=== PATIENT | male | born 1960 | race Caucasian/White ===

== ENCOUNTER 2019-06-08 16:30 | Inpatient (IN) | payer MEDICARE, SELFPAY ==
[2019-06-08 16:30] VITALS: RESP 18; BMI 26.6
--- NOTE | 2019-06-08 16:35 | PC.NURSE ---
Unable to perform an accurate triage d/t pt being uncooperative and screaming about [place] and being a . Pt refusing assessment by Dr Marquez stating you aren't a doctor so get out, I don't need to see you . Pt is throwing things in the room and talking non-sense. Pt refusing to be seen or treated. Security at bedside.
[2019-06-08 16:40] VITALS: RESP 18
[2019-06-08] MEDS: LORazepam 2 mg/mL INJ 1 mL IM ×2 (16:46→21:55)
[2019-06-08] MEDS: haloperidol inj 5 mg/mL INJ 1 mL IM (16:46)
[2019-06-08] MEDS: diphenhydrAMINE 50 mg/mL SDV 1mL IM (16:55)
[2019-06-08 17:14] VITALS: PULSE 133; RESP 18; O2SAT 97
--- NOTE | 2019-06-08 17:25 | PC.NURSE ---
Pt continues to be resistive to care and security remains at bedside to keep pt calm. Pt reusing to change clothes and give urine sample or obtain blood sample.
--- NOTE | 2019-06-08 17:54 | W.ED.PSYCH ---
HPI - Psych General: Chief Complaint: Psychiatric Symptoms Stated Complaint: PSYCH EVAL Time Seen by Provider: 06/08/19 16:30 Source: patient and EMS Mode of arrival: EMS Limitations: altered mental status History of Present Illness: HPI Narrative: 59-year-old male came in with EMS for agitation along with acute psychosis. Patient was found at a gas station wandering and screaming and yelling and making no sense and EMS was called. I have tried to speak to him and he talks about and he is quite delusional. He will not answer any my questions and states he only wants to talk to personnel. No known history is available. He does not look ill. He is agitated at this time. Review of Systems General: Reports: ROS unobtainable due to medical condition PFSH ED PFSH: Social History Smoking and tobacco status: current every day smoker Physical Exam Const: COMMON NORMALS: oriented x3 GENERAL APPEARANCE: combative and disheveled HENMT: COMMON NORMALS: normocephalic and head/scalp atraumatic HEAD & SCALP: normocephalic and atraumatic Eye: COMMON NORMALS: PERRL and EOMs intact bilaterally PUPIL: Yes PERRL Neck/C-Spine: COMMON NORMALS: full ROM and supple Chest: COMMONS NORMALS: inspection of chest normal and palpation of chest normal Resp: COMMON NORMALS: normal respiratory effort, no retractions, no use of accessory muscles and clear to auscultation bilaterally AUSCULTATION: clear to auscultation bilaterally Cardio: COMMON NORMALS: regular rate, regular rhythm and no murmurs RATE: regular rate RHYTHM: regular rhythm GI: COMMON NORMALS: normal to inspection, nondistended, normoactive bowel sounds, soft to palpation, non-tender and no masses PALPATION: Yes soft Extremity: COMMON NORMALS: normal to inspection and full ROM Neuro: COMMON NORMALS: oriented x3, moves all extremities and no focal motor deficits Psych: APPEARANCE: Yes bizarre ATTITUDE: Yes paranoid, Yes belligerent and Yes agitated Skin: COMMON NORMALS: no rashes or lesions noted and no wounds GENERAL SKIN EXAM: no rashes or lesions noted MDM - Psych MDM Narrative: Medical decision making narrative: Ced presents here with acute psychosis and agitation. Patient is well-appearing here currently and is much calmer and agreeable. Patient has no signs of medical cause CT head lab work are all normal. He has no signs of meningitis. Spoke to psychiatrist and will admit at this time. Lab Data: Labs: Lab Results 06/08/19 06/08/19 06/08/19 Range/Units 18:43 18:43 18:51 WBC 8.5 (4.0-10.0) 10^3/ uL RBC 4.84 (4.1-5.3) 10^6/u L Hgb 15.3 (11.7-16.6) g/dL Hct 45.5 (42.0-52.0) % MCV 94.0 (80-94) fL MCH 31.6 (28.0-34.0) pg MCHC 33.6 (30.0-36.0) g/dL RDW 13.2 (12.1-15.1) % Plt Count 181 (130-400) 10^3/c mm MPV 10.4 (7.4-10.4) fL Neut % (Auto) 74.4 % Lymph % (Auto) 18.1 % Kershaw % (Auto) 6.8 % Eos % (Auto) 0.1 % Baso % (Auto) 0.4 % Neut # (Auto) 6.4 (1.8-7.7) 10^3/u L Lymph # (Auto) 1.6 (0.8-4.8) 10^3/u L Kershaw # (Auto) 0.6 (0.2-0.9) 10^3/u L Eos # (Auto) 0.0 (0.0-0.8) 10^3/u L Baso # (Auto) 0.0 (0.0-0.1) 10^3/u L Nucleated RBC % (a uto) 0 % Nucleated RBCs # 0.0 /100WBC Sodium 139 (136-145) mmol/L Potassium 3.4 L (3.5-5.1) mmol/L Chloride 101 (98-107) mmol/L Carbon Dioxide 22 (22-29) mmol/L Anion Gap 19.4 H (5-19) BUN 8 (8-23) mg/dL Creatinine 1.2 (0.7-1.2) mg/dL GFR Calculation 61.8 L (90-130) mL/min Glucose 122 H (65-115) mg/dL Calculated Osmolal ity 285 (285-295) mOsm/k g Calcium 10.1 (8.5-10.5) mg/dL Total Bilirubin 0.8 (0.15-1.2) mg/dL AST 13 (0-40) U/L ALT 8 (0-41) U/L Alkaline Phosphata se 104 (40-130) IU/L Total Protein 7.5 (6.6-8.7) g/dL Albumin 4.4 (3.5-5.2) g/dL Globulin 3.1 (1.3-4.6) g/dL Salicylates < 0.3 L (3-10) mg/dL Urine Opiates Scre en Negative (Negative) ng/mL Acetaminophen < 5.0 L (10-30) ug/mL Ur Barbiturates Sc reen Negative (Negative) ng/mL Ur Phencyclidine S crn Negative (Negative) ng/mL Ur Amphetamines Sc reen Negative (Negative) ng/mL U Benzodiazepines Scrn Negative (Negative) ng/mL Urine Cocaine Scre en Negative (Negative) ng/mL U Marijuana (THC) Screen Negative (Negative) ng/mL Ethyl Alcohol < 10 (0-10) mg/dL Imaging Data^: CT Head: Attestation: I personally reviewed and interpreted this imaging study as follows: Radiologist's impression: [address] [address] [address] Scan Report Signed Patient: Ced Vicente Unit #: [id number] : 1960 Age/Sex: 59 / M ADM Date: 06/08/19 Loc: ER Room/Bed: Attending Dr: Ordering Provider/Ordering MD: Laura Marquez MD Date of Service: 06/08/19 Procedure(s): CT head wo con* [id number] Accession Number(s): [id number] Report Number: [id number] PROCEDURE INFORMATION: Exam: CT Head Without Contrast Exam date and time: 06/08/2019 7:22 PM Age: 59 years old Clinical indication: Altered mental status/memory loss; Additional info: AMS TECHNIQUE: Imaging protocol: Computed tomography of the head without contrast. Total DLP: 845.42 mGy-cm Radiation optimization: All CT scans at this facility use at least one of these dose optimization techniques: automated exposure control; mA and/or kV adjustment per patient size (includes targeted exams where dose is matched to clinical indication); or iterative reconstruction. COMPARISON: No relevant prior studies available. FINDINGS: Brain: Currently no visible evidence of active or acute intracranial pathologic process. No visible acute or subacute infarction, hemorrhagic event, intracranial trauma, mass-effect, or generalized edema. Benign basal ganglia calcifications. Ventricles: Normal. No ventriculomegaly. Bones/joints: Unremarkable. No acute fracture. Sinuses: Visualized sinuses are unremarkable. No fluid levels. Mastoid air cells: Visualized mastoid air cells are well aerated. Soft tissues: Unremarkable. CT/CT head wo con* [id number] IMPRESSION: No visible evidence of active or acute intracranial pathologic process. Discharge Plan Discharge Patient Disposition: Admitted As Inpatient Clinical Impression: Acute psychosis Condition: Stable Coding Level of Care Code ED Truck Packer for Jhonatan Fwd Exam Comprehensive
[2019-06-08 18:46] VITALS: BP 142/98; PULSE 87; RESP 16; TEMP 36.9; O2SAT 96
--- NOTE | 2019-06-08 18:58 | PC.NURSE ---
Ketamine dose of 326.6mg wasted with Juanita Burkett RN d/t no need for medication. Dr Marquez notified and aware. Pt has given urine sample and requested a sandwich and a drink, both have been provided to pt. Pt continues to refuse to remove his clothing but is otherwise cooperative. Pt instructed to remove all objects in his pockets if he will not change into scrubs.
[2019-06-08 19:03] LABS: Basophils % 0.4 %; Eosinophils % 0.1 %; Hematocrit 45.5 % (42.0-52.0); Hemoglobin 15.3 g/dL (11.7-16.6); Lymphocytes # 1.6 10^3/uL (0.8-4.8); Lymphocytes % 18.1 %; Mean Corpuscular HGB Conc 33.6 g/dL (30.0-36.0); Mean Corpuscular Hemoglobin 31.6 pg (28.0-34.0); Mean Platelet Volume 10.4 fL (7.4-10.4); Monocytes # 0.6 10^3/uL (0.2-0.9); Monocytes % 6.8 %; Neutrophils # 6.4 10^3/uL (1.8-7.7); Neutrophils % 74.4 %; Nucleated Red Blood Cells % 0 %; Platelet Count 181 10^3/cmm (130-400); Red Blood Count 4.84 10^6/uL (4.1-5.3); Red Cell Distribution Width 13.2 % (12.1-15.1); White Blood Count 8.5 10^3/uL (4.0-10.0)
--- NOTE | 2019-06-08 19:07 | CTR_ITS ---
PROCEDURE INFORMATION: Exam: CT Head Without Contrast Exam date and time: 06/08/2019 7:22 PM Age: 59 years old Clinical indication: Altered mental status/memory loss; Additional info: AMS TECHNIQUE: Imaging protocol: Computed tomography of the head without contrast. Total DLP: 845.42 mGy-cm Radiation optimization: All CT scans at this facility use at least one of these dose optimization techniques: automated exposure control; mA and/or kV adjustment per patient size (includes targeted exams where dose is matched to clinical indication); or iterative reconstruction. COMPARISON: No relevant prior studies available. FINDINGS: Brain: Currently no visible evidence of active or acute intracranial pathologic process. No visible acute or subacute infarction, hemorrhagic event, intracranial trauma, mass-effect, or generalized edema. Benign basal ganglia calcifications. Ventricles: Normal. No ventriculomegaly. Bones/joints: Unremarkable. No acute fracture. Sinuses: Visualized sinuses are unremarkable. No fluid levels. Mastoid air cells: Visualized mastoid air cells are well aerated. Soft tissues: Unremarkable. CT/CT head wo con* [id number] IMPRESSION: No visible evidence of active or acute intracranial pathologic process. Radiation Dose CTDIVOL = (mGy): DLP = 845.42 (mGy-cm)
[2019-06-08 19:22] LABS: Alanine Aminotransferase 8 U/L (0-41); Albumin Level 4.4 g/dL (3.5-5.2); Alkaline Phosphatase 104 IU/L (40-130); Anion Gap 19.4 (5-19); Aspartate Amino Transferase 13 U/L (0-40); Blood Urea Nitrogen 8 mg/dL (8-23); Calcium 10.1 mg/dL (8.5-10.5); Carbon Dioxide 22 mmol/L (22-29); Chloride 101 mmol/L (98-107); Globulin 3.1 g/dL (1.3-4.6); Glomerular Filtration Rate 61.8 mL/min (90-130); Glucose 122 mg/dL (65-115); Osmolality Calculated 285 mOsm/kg (285-295); Potassium 3.4 mmol/L (3.5-5.1); Sodium 139 mmol/L (136-145); Total Bilirubin 0.8 mg/dL (0.15-1.2); Total Protein 7.5 g/dL (6.6-8.7)
[2019-06-08 19:27] LABS: Acetaminophen < 5.0 ug/mL (10-30); Alcohol Level < 10 mg/dL (0-10); Salicylate < 0.3 mg/dL (3-10)
[2019-06-08 19:49] LABS: Amphetamines Screen Urine Negative (Negative); Barbiturates Screen Urine Negative (Negative); Benzodiazepines Screen Urine Negative (Negative); Cocaine Screen Urine Negative (Negative); Opiate Screen Urine Negative (Negative); PCP Screen Urine Negative (Negative); THC Screen Urine Negative (Negative)
--- NOTE | 2019-06-08 22:55 | PC.NURSE ---
Pt arrived to unit via w/c from ER, wearing paper scrubs, pt refused to take off t-shirt and underwear in the ER.
--- NOTE | 2019-06-08 23:00 | PC.NURSE ---
pt has no scheduled med at this time.
[2019-06-08 23:05] VITALS: BP 129/86; PULSE 83; RESP 19; TEMP 36.8; O2SAT 93
--- NOTE | 2019-06-09 00:54 | PC.NURSE ---
Pt was compliant, with much encouragement and assistance, in changing clothes. Pt was unable to stand without assistance. Cannot answer questions. continues to mumble. quickly went to sleep. continue to monitor.
[2019-06-09 06:00] VITALS: BP 168/99; PULSE 69; RESP 15; TEMP 36.7; O2SAT 98
[2019-06-09 14:00] VITALS: BP 146/85; PULSE 73; RESP 16; TEMP 36.5; O2SAT 96
--- NOTE | 2019-06-09 14:02 | P.HP_ITS ---
Providers/Chief Complaint Admitting Physician: Oskar Fine MD Chief Complaint: PSYCH EVAL HPI NPU History of Present Illness Chief complaint: I don't want to. History of present illness:Ced Vicente is a 59 year old male who was admitted from the mergency room with the following ER phsyciain narrative: 59-year-old male came in with EMS for agitation along with acute psychosis. Patient was found at a gas station wandering and screaming and yelling and making no sense and EMS was called. I have tried to speak to him and he talks about and he is quite delusional. He will not answer any my questions and states he only wants to talk to personnel. No known history is available. He does not look ill. He is agitated at this time. he was given medication in the emergency room to calm his agitation. Today, he is content to lay in bed and sleep. He is unwilling to participate and an individual interview at this time. He is in no apparent distress. However, we have absolutely no information on this patient. He has no prior medical records at this facility. He has no legal records in the public records for the state [facility]. His last name is familiar to people who live in this community but his identity and the first name are unfamiliar. Mental health history:unknown Social history:unknown Legal history:no record of felonies or rests in the [place] public record Past medical history:unknown Laboratory Tests 06/08/19 06/08/19 06/08/19 18:43 18:43 18:51 WBC 8.5 Hgb 15.3 Hct 45.5 Sodium 139 Potassium 3.4 L Chloride 101 Carbon Dioxide 22 Urine Opiates Screen Negative Ur Barbiturates Screen Negative Ur Phencyclidine Scrn Negative Ur Amphetamines Screen Negative U Benzodiazepines Scrn Negative Urine Cocaine Screen Negative U Marijuana (THC) Screen Negative Ethyl Alcohol < 10 Mental Status Exam: patient is laying in bed in no apparent distress with even unlabored breathing. He is aroused by verbal stimuli. However he states verbally that he is unwilling to participate in an interview at this time. Appearance: hygiene is fair; no gross neurological deficits., gait is unremarkable; AIMS=0 Speech: Speech is of normal rate and rhythm and easily understood. Diagnoses:delirium?etiology unknown Assessment:at this time we will wait for the patient to process the sedating medication he was given in the emergency room last night and continue to assess as available. Treatment plan: Due to the psychiatric conditions and treatment listed in the Assessment and Plan - the patient requires continued hospitalization. Will provide a safe and therapeutic environment for patient.. Will continue inpatient treatment to allow for medication adjustment and monitoring. Will continue q15 min safety checks. Will continue current medications and monitor for medication side effects. Monitor patient's mood, sleep, appetite, and behavior closely. Encourage patient to participate in individual and group therapeutic sessions on the mitchell. Estimated length of stay 5 days The expected benefits and potential side effects of patient's psychiatric medications were discussed with the patient. The patient understands and consents to treatment.CRITERIA FOR DISCHARGE: stable on medications and no longer an imminent risk to self or others. Meds NPU Home Medications Medication Instructions Recorded Confirmed Type No Known Home Medications 06/08/19 06/08/19 History Allergies Allergy/AdvReac Type Severity Reaction Status Date / Time Penicillins Allergy ADR-Itching Verified 06/09/19 10:59 PFSH NPU PFSH: Social History Smoking and tobacco status: current every day smoker Vitals/I&O/Wt Last Vital Signs Temp 98.0 F 06/09/19 06:00 Pulse 69 06/09/19 06:00 Resp 15 06/09/19 06:00 BP 168/99 06/09/19 06:00 Pulse Ox 98 06/09/19 06:00 Weight last 48 hrs Weight 81.647 kg Data NPU : 06/08/19 18:43 06/08/19 18:43 Involuntary Hold Information 96 Hour Hold: 96 Hour Involuntary Admission: Yes 96 Hour Hold Ending Date: 06/14/19 96 Hour Hold Ending Time: 16:30 Attestations NPU Medical Necessity Statement*: patient will remain in the hospital another 4-5 nights under the force of his 96 hour involuntary commitment. Coding Level of Care Code Acute Concrete Tile Machine Operator for Jhonatan Bajwa
[2019-06-09] MEDS: OLANZapine ODT 5 MG TABLET PO (15:10)
--- NOTE | 2019-06-09 15:10 | PC.NURSE ---
PRN ZYPREXA ZYDIS 5 MG GIVEN PO PER PT C/O SEVERE AGITATION. PT IRRITABLE WITH STAFF, DEMANDING HIS WALLET & PICTURES & WATCH. STAFF ATTEMPTS TO EDUCATE PT ON UNIT RULES, ASSURED PT THAT HIS VALUABLES WERE SAFELY LOCKED UP IN THE SAFE & WOULD BE RETURNED TO HIM UPON DISCHARGE. PT CONT TO BE ARGUMENTATIVE WITH STAFF. TOOK MED WITH MUCH ENCOURAGEMENT. WILL CONT TO MONITOR.
--- NOTE | 2019-06-09 21:16 | PC.NURSE ---
Pt refused HS meds at this time.
[2019-06-09 21:27] VITALS: RESP 21
--- NOTE | 2019-06-09 21:30 | PC.NURSE ---
Attempt made to give pt his scheduled HS meds, pt refused meds. stated i don't take any medicine. promotion writer attempted to educate pt on the medications to be given at this time, pt grabbed the meds and held them in his hand. when pt was told he could not do that, that if he didn't want to take his medications, it was ok, but pt would have give the meds back so they can be put back into our med machine. pt then threw them back at this promotion writer. pt has been verbally abusive to staff since about 1999, yelling at staff about his belongings, his wallet, clothes, money, ect. several attempts made to educate pt that all his valuables are locked in the safe and the rest of his items are in a specially marked bin. that it is facility policy that pt's can not have personal items due to safety reasons. pt stormed back and forth to his room, slamming the door shut. pt educated by several staff several times that the doors can not be shut all the way. upon doing rounds, it was noted that pt but one of the end tables behind the door to prevent it from opening all the way.
[2019-06-10] MEDS: OLANZapine ODT 5 MG TABLET PO ×2 (01:59→21:09)
[2019-06-10] MEDS: gabapentin 300 mg Capsule 600 MG PO ×2 (01:59→21:07)
[2019-06-10] MEDS: doxepin 50 mg Capsule PO (02:00)
--- NOTE | 2019-06-10 02:01 | PC.NURSE ---
Pt agreed to take HS meds at this time.
[2019-06-10 06:00] VITALS: RESP 16
--- NOTE | 2019-06-10 13:22 | PC.NURSE ---
Ced went to his room and the STOVE FITTER asked if she could do his vital signs and I heard him refuse to do them.
[2019-06-10] MEDS: nicotine 2 mg Gum BUCCAL (16:52)
[2019-06-10] MEDS: divalproex DR 500 mg Tablet PO (16:53)
--- NOTE | 2019-06-10 18:11 | PC.NURSE ---
Patient REFUSED VITALS
--- NOTE | 2019-06-10 18:18 | P.PN_ITS ---
Subjective NPU Subjective: Interval history: Patient complaint with medication. No complaints. Mental Status Exam MSE Comments: Mental Status Exam: Appearance: hygiene is fair; no gross neurological deficits., gait is unremarkable; AIMS=0 Speech: Speech is of rapid rate and rhythm and easily understood. Thought processes: Thought processes are illogical, nonlinear, with positive flight of ideas.. Judgment is not adequate for safety.he is not able to carry on a conversation for any specific length of time that would allow me to assess whether he has enough problem-solving skills to remain out of harm's way. Psychotic processes: he is quite guarded almost to the point of being paranoid. However he does not verbalize any specific source of his fear or paranoia.. There is no attention to the internal stimuli. Auditory and visual hallucinations are denied. Judgment: Insight is poor. Problem solving skills are not adequate for safety. Orientation: The patient is oriented to person. only. He does not seem to realize that he is actually in the hospital and at one time thought he was in a post office. Memory: no does not recall the events leading to his hospitalization. Attention: The patient is alert and interpersonally engaged. Language: Verbalizations are coherent. Fund of knowledge: Fund of knowledge is 4. He cannot name a job she has had past or how he would perform that job. Affect/Mood: Affect is consistent with a manic mood. he denied suicidal ideation Affective range is expansive Psychosis: perception is significantly impaired from his disordered thinking, a nd illogical thinking, poor orientation, and poor memory.; reality testing negligible . Vitals/I&O/Wt Last Vital Signs Temp 97.7 F 06/09/19 14:00 Pulse 73 06/09/19 14:00 Resp 16 06/10/19 06:00 BP 146/85 06/09/19 14:00 Pulse Ox 96 06/09/19 14:00 Data NPU : 06/08/19 18:43 06/08/19 18:43 A&P Additional A&P Information Diagnoses: Bipolar disorder?manic Due to the psychiatric conditions and treatment listed in the Assessment and Plan - the patient requires continued hospitalization. Will provide a safe and therapeutic environment for patient.. Will continue inpatient treatment to allow for medication adjustment and monit oring. Will continue q15 min safety checks. at this time the patient has no insight into the fact that he has a mental illness and is not interested in taking a vacation. Regardless, Depakote 500 mg twice a day and Seroquel 200 mg at bedtime will be ordered as well as doxepin and gabapentin as needed for sleep. We will see if he is cooperative in this effort. He remains on a 96 hour involuntary commitment. HD#3: pt complaint with intiaition of Depakote and Serouel. Will continue to monitor. Monitor patient's mood, sleep, appetite, and behavior closely. Encourage patient to participate in individual and group therapeutic sessions on the mitchell. Estimated length of stay 5 days The expected benefits and potential side effects of patient's psychiatric medications were discussed with the patient. The patient understands and consents to treatment. CRITERIA FOR DISCHARGE: stable on medications and no longer an imminent threat to self or others Involuntary Hold Information 96 Hour Hold: 96 Hour Involuntary Admission: Yes 96 Hour Hold Ending Date: 06/14/19 96 Hour Hold Ending Time: 16:30 Attestations NPU Medical Necessity Statement*: patient remained in the hospital another 5-6 nights on an involuntary commitment or until he is able to establish appropriate mental health. Coding Level of Care Code Acute Concrete Bucket Hooker for Jhonatan Bajwa
--- NOTE | 2019-06-10 18:22 | PC.NURSE ---
Patient refused vitals. Pulse, Blood Pressure, Temp, and O2sat.
--- NOTE | 2019-06-10 18:24 | PC.NURSE ---
PATIENT REFUSED VITAL SIGNS.
[2019-06-10] MEDS: quetiapine 100 mg Tablet 200 MG PO (21:09)
[2019-06-10] MEDS: acetaminophen 325 mg Tablet 650 MG PO (21:46)
[2019-06-10 21:49] LABS: Glucose Point of Care 131 mg/dL (70-110)
[2019-06-10] MEDS: LORazepam 0.5 mg Tablet PO (21:49)
[2019-06-10 22:00] VITALS: BP 168/101; PULSE 67; RESP 19; O2SAT 97
[2019-06-11 06:00] VITALS: BP 165/97; PULSE 66; RESP 16; O2SAT 92
[2019-06-11 14:00] VITALS: BP 126/89; PULSE 97; RESP 18
[2019-06-11] MEDS: OLANZapine ODT 5 MG TABLET PO (18:48)
--- NOTE | 2019-06-11 18:50 | PC.NURSE ---
PT IS IRRITABLE AND DELUSIONAL,RAMBLING,CURSING STAFF AND OTHERS. ADMINISTERED ZYPREXA ZYDIS PRN. WILL CONT TO MONITOR AND FOLLOW UP NEEDED
--- NOTE | 2019-06-11 19:28 | PC.NURSE ---
Pt remains disorganized and tangential with flight of ideas. Has been very labile but no behavioral issues at this time. Will continue to monitor.
[2019-06-11] MEDS: quetiapine 100 mg Tablet 200 MG PO (20:11)
[2019-06-11] MEDS: gabapentin 300 mg Capsule 600 MG PO (20:11)
[2019-06-11 22:00] VITALS: BP 166/82; PULSE 89; RESP 19; O2SAT 94
[2019-06-12 06:00] VITALS: PULSE 106; RESP 19; O2SAT 98
--- NOTE | 2019-06-12 09:00 | PC.NURSE ---
GAS MAIN AND LINE FITTER AND ANOTHER STAFF MEMBER WENT TO PT ROOM TO ADMINISTERED AM MEDICATIONS. PT IRRITABLE WITH FLIGHT OF IDEAS AND PRESSURED SPEECH. PT INITIALLY STARTED TO TAKE MEDICATIONS,BUT THEN HELD THEM IN HIS HAND AND TOLD GAS MAIN AND LINE FITTER THAT IF WE GOT HIM THE EGGS AND SAUSAGE HE ORDERED FOR BREAKFAST HE WOULD TAKE THE MEDICINE. ATTEMPTED TO REASON WITH PT AND VOICED THAT WE WOULD ATTEMPT TO GET THE FOOD HE REQUESTED AND GAS MAIN AND LINE FITTER ASKED THE PT FOR THE MEDICINE BACK AND HE GAVE IT BACK. PT CONTINUES TO YELL,CURSE AND RAMBLE. DR HERNANDEZ AWARE OF ABOVE AND GAVE ORDER FOR PT TO HAVE ATIVAN 2MG/HALDOL 5 MG IM FOR BEHAVIOR.
[2019-06-12] MEDS: haloperidol inj 5 mg/mL INJ 1 mL IM (09:04)
--- NOTE | 2019-06-12 09:04 | PC.NURSE ---
STAMPING MILL TENDER,STAFF AND SECURITY WENT TO PT ROOM AND VOICED TO PT THAT THE DR HAD ORDERED AN INJECTION FOR THE PATIENT. WHEN STAFF ENTERED THE ROOM,PT VOICED THAT STAMPING MILL TENDER WASNT GOING TO GIVE INJECTION,SO STAMPING MILL TENDER HANDED THE INJECTION TO CHARGE NURSE. PT THEN VOICED THAT HE WOULD TAKE THE MEDICINE THAT WAS OFFERED MULTIPLE TIMES ,BUT [facility] NURSE EXPLAINED TO PT THAT THE DR GAVE THIS ORDER AND WE NEEDED TO ADMINISTER MEDICATION DUE TO CONTINUAL REFUSAL OF SCHEDULED AM MEDICATION. G NURSE ADMINISTERED ATIVAN 2MG/HALDOL 5MG IM IN LEFT DELTOID WITHOUT ANY RESISTANCE. WILL CONT TO MONITOR AND FOLLOW UP NEEDED
[2019-06-12] MEDS: LORazepam 2 mg/mL INJ 1 mL IM (09:05)
--- NOTE | 2019-06-12 09:23 | PM.NPN ---
Subjective NPU Subjective: Interval history: The patient is increasingly agitated at the moment. He is loud, pressured in speech, racing and thoughts and very angry. He has blockaded his door, which we quickly resolved. Best estimate is that he is in a mixed manic state. We have no history and he is unable to provide information just now. Medications: Reviewed: Yes Medication Review Details: Current Medications Acetaminophen (Tylenol) 650 mg PO Q4H PRN PRN Reason: MILD PAIN Last Admin: 06/10/19 21:46 Dose: 650 mg Documented by: Benztropine Mesylate (Cogentin) 1 mg PO BID PRN PRN Reason: Mild Extrapyramidal symptoms Camphor/Menthol/Phenol (Blistex) 1 applic TOPICAL Q1H PRN PRN Reason: DRYNESS Diphenhydramine HCl (Benadryl) 50 mg IM ONCE PRN PRN Reason: Severe Extrapyramidal Symptoms Diphenhydramine HCl (Benadryl) 50 mg IM Q4H PRN PRN Reason: Severe Aggression Divalproex Sodium (Depakote Dr) 500 mg PO BID [facility] Last Admin: 06/12/19 09:18 Dose: Not Given Documented by: Doxepin HCl (Sinequan) 50 mg PO BEDTIME PRN PRN Reason: insomnia Last Admin: 06/10/19 02:00 Dose: 50 mg Documented by: Gabapentin (Neurontin) 600 mg PO BEDTIME [facility] Last Admin: 06/11/19 20:11 Dose: 600 mg Documented by: Haloperidol Lactate (Haldol Inj) 5 mg IM Q4H PRN PRN Reason: Severe Aggression Last Admin: 06/12/19 09:04 Dose: 5 mg Documented by: Loperamide HCl (Imodium Capsule) 2 mg PO Q6H PRN PRN Reason: DIARRHEA Lorazepam (Ativan) 2 mg IM Q4H PRN PRN Reason: Severe Aggression Last Admin: 06/12/19 09:05 Dose: 2 mg Documented by: Lorazepam (Ativan) 0.5 mg PO Q4H PRN PRN Reason: ANXIETY Last Admin: 06/10/19 21:49 Dose: 0.5 mg Documented by: Nicotine (Nicoderm 21 Mg Patch) 1 patch TRANSDERMA DAILY PRN PRN Reason: NICOTINE WITHDRAWAL Nicotine Polacrilex (Nicorette) 2 mg BUCCAL Q2H PRN PRN Reason: NICOTINE WITHDRAWAL Last Admin: 06/10/19 16:52 Dose: 2 mg Documented by: Olanzapine (Zyprexa Zydis) 5 mg PO Q4H PRN PRN Reason: Agitation/Psychosis Last Admin: 06/11/19 18:48 Dose: 5 mg Documented by: Ondansetron HCl (Zofran) 4 mg PO Q6H PRN PRN Reason: NAUSEA AND VOMITING Quetiapine Fumarate (Seroquel) 200 mg PO BEDTIME EDGARDO Last Admin: 06/11/19 20:11 Dose: 200 mg Documented by: Mental Status Exam MSE Comments: Mental Status Exam: Appearance: hygiene is fair; no gross neurological deficits., gait is unremarkable; AIMS=0 Speech: Speech is loud, of rapid rate and rhythm and easily understood. He is not able to carry on a conversation for any specific length of time that would allow me to assess whether he has enough problem-solving skills to remain out of harm's way. Thought processes: Illogical, nonlinear, with flight of ideas. Judgment is not adequate for safety. He is bereft of insight. Psychotic processes: he is quite guarded almost to the point of being paranoid. However he does not verbalize any specific source of his fear or paranoia. There is no attention to internal stimuli. Auditory and visual hallucinations are denied. Judgment: Problem solving skills are not adequate for safety. Orientation: The patient is oriented to person. only. He does not seem to realize that we are trying to help him. Memory: Says he does not recall the events leading to his hospitalization. Attention: The patient is alert and interpersonally guarded. Language: Verbalizations are coherent, loud and free of dysarthria and aprosody. Fund of knowledge: He cannot name a job he has had past or how he would perform that job. Affect/Mood: Affect is consistent with a mixed mood. he denied suicidal ideation. Affective range is expansive Psychosis: perception is significantly impaired from his disordered and illogical thinking, poor orientation and poor memory; reality testing negligible Behavior: Patient Behavior: Aggressive, Angry, Hostile, Irritable and Uncooperative Attitude Description: Aggressive, Resistive, Belligerent and Guarded Emotional State Description: Irritable and Hostile Speech Pattern: Clear, Excessive and Pressured Voice Loudness: Severely Loud Restraint Use Risk: Aggression, Agitation, Distruptive Behavior, Delusions, Mental Disorder, Psych Facility Resident, Psychotropic Drug Use and Treatment Interference Vitals/I&O/Wt Last Vital Signs Temp 97.7 F 06/09/19 14:00 Pulse 106 H 06/12/19 06:00 Resp 19 H 06/12/19 06:00 BP 166/82 06/11/19 22:00 Pulse Ox 98 06/12/19 06:00 Weight last 48 hrs Weight 178 lb 2 oz Data NPU : 06/08/19 18:43 06/08/19 18:43 A&P Additional A&P Information Additional A&P Information Diagnoses: Bipolar disorder?mixed. Due to the psychiatric conditions and treatment listed in the Assessment and Plan - the patient requires continued hospitalization. Will provide a safe and therapeutic environment for patient. Will continue inpatient treatment to allow for medication adjustment and monitoring. Will continue q15 min safety checks. at this time the patient has no insight into the fact that he has a mental illness and is not interested in taking a vacation. Regardless, Depakote 500 mg twice a day. The Seroquel, being 1 of 3 antipsychotics on the medication record, is to be replaced by another dose of Zyprexa Zydis 5 mg p.o. nightly. So far we have not been able to get Depakote on board. Monitor patient's mood, sleep, appetite, and behavior closely. Encourage patient to participate in individual and group therapeutic sessions on the [facility]. Estimated length of stay 5 days. The expected benefits and potential side effects of patient's psychiatric medications were discussed with the patient. The patient understands and consents to treatment. CRITERIA FOR DISCHARGE: stable on medications and no longer an imminent threat to self or others. Involuntary Hold Information 96 Hour Hold: 96 Hour Involuntary Admission: Yes 96 Hour Hold Ending Date: 06/14/19 96 Hour Hold Ending Time: 16:30 Attestations NPU Medical Necessity Statement*: I anticipate we will have to apply for a 21-day hold. I anticipate further that the patient will remain with us 7-10 midnights Time Spent in Patient Care: Greater than 35 minutes (>than 50% of time spent in counselling and/or direct pt care on unit). We were able to give him as-needed Haldol and lorazepam to calm him down. We were able to do so with minimal intervention and there was no need to restrain him. Coding Level of Care Code Acute Eyelet Machine Operator for Jhonatan Bajwa
[2019-06-12 13:40] VITALS: BP 167/121; PULSE 83; RESP 18
--- NOTE | 2019-06-12 16:10 | PC.NURSE ---
staff reported pt b/p was 167/121. dr tucker. new order for hctz 25 mg po .administered as ordered.
[2019-06-12] MEDS: hydroCHLOROthiazide 25 mg Tablet PO (16:39)
[2019-06-12] MEDS: divalproex DR 500 mg Tablet PO (17:37)
--- NOTE | 2019-06-12 18:09 | PC.NURSE ---
staff rechecked pt b/p after hctz was given and currently is 210/122,pt was talking and moving around and talking so unsure if is accurate,but made aware.
--- NOTE | 2019-06-12 18:34 | P.CONIM_ITS ---
Providers/Reason For Consult Consulting Physican/Specialty*: pgeneral service Reason for Consult*: htn urgency Attending Physician: Oskar Fine MD History of Present Illness History of Present Illness Ced Vicente is a 59 year old male admitted for delirium and psychosis, on multiple medications, admitted to the n.p.u. The general medical service, was consulted due to hypertensive episodes. Currently patient systolic blood pressure in the 220s, diastolic is in the 120s, patient is quite agitated, pacing the hallways, denies chest pain, denies shortness of breath, denies headaches, denies blurry vision. Patient main complaint to me was of blood on his toilet paper he kept pointing at me, was quite agitated, quite agitated with me examining him, quite agitated with repeat blood pressure checks, quite agitated with our concerns about his blood pressure. States that there is nothing wrong with him. It was very difficult for me to get a history from him, I do not know if he has a past medical history of hypertension, CAD, or strokes. It was difficult to get any information for the patient, but he stated that he was okay, denies any history of CAD, hypertension, strokes,, but again was very agitated, difficult to get straight answers from him. Review of Systems Card: Denies: chest pain Resp: Denies: shortness of breath Neuro: Denies: headache Meds/Allergies Home Medications and Allergies Home Medications Medication Instructions Recorded Confirmed Type No Known Home Medications 06/08/19 06/08/19 History Allergies Allergy/AdvReac Type Severity Reaction Status Date / Time Penicillins Allergy ADR-Itching Verified 06/09/19 10:59 Current Medications Current Medications Generic Name Dose Route Start Last Admin Trade Name Freq PRN Reason Stop Dose Admin Acetaminophen 650 mg 06/09/19 00:02 06/10/19 21:46 Tylenol PO 650 mg Q4H PRN Administration MILD PAIN Divalproex Sodium 500 mg 06/10/19 18:00 06/12/19 17:[address] PO 500 mg BID EDGARDO Administration Doxepin HCl 50 mg 06/09/19 15:15 06/10/19 02:00 Sinequan PO 50 mg BEDTIME PRN Administration insomnia Gabapentin 600 mg 06/09/19 21:00 06/11/19 20:11 Neurontin PO 600 mg BEDTIME EDGARDO Administration Haloperidol Lactate 5 mg 03/19/20 00:02 06/12/19 09:04 Haldol Inj IM 5 mg Q4H PRN Administration Severe Aggression Hydrochlorothiazide 25 mg 06/12/19 15:16 06/12/19 16:39 Hctz PO 25 mg DAILY EDGARDO Administration Lorazepam 2 mg 06/09/19 00:02 06/12/19 09:05 Ativan IM 2 mg Q4H PRN Administration Severe Aggression Lorazepam 0.5 mg 06/09/19 15:15 06/10/19 21:49 Ativan PO 0.5 mg Q4H PRN Administration ANXIETY Nicotine Polacrilex 2 mg 06/09/19 00:02 06/10/19 16:52 Nicorette BUCCAL 2 mg Q2H PRN Administration NICOTINE WITHDRAWAL Olanzapine 5 mg 06/09/19 00:02 06/11/19 18:48 Zyprexa Zydis PO 5 mg Q4H PRN Administration Agitation/Psychosis PFSH Acute PFSH: Social History Smoking and tobacco status: current every day smoker Vitals/I&O/Wt Last Vital Signs Temp 97.7 F 06/09/19 14:00 Pulse 83 06/12/19 13:40 Resp 18 06/12/19 13:40 BP 167/121 06/12/19 13:40 Pulse Ox 98 06/12/19 06:00 Weight last 48 hrs Weight 80.796 kg Physical Exam Const: COMMON NORMALS: alert EXAM LIMITATIONS: altered mental status GENERAL APPEARANCE: anxious ORIENTATION/CONSCIOUSNESS: Yes oriented to person; not oriented to place and not oriented to time HENMT: COMMON NORMALS: normocephalic HEAD & SCALP: normocephalic Chest: COMMONS NORMALS: inspection of chest normal Resp: COMMON NORMALS: normal respiratory effort Cardio: COMMON NORMALS: regular rate, S1 normal heart sound and S2 normal heart sound RATE: regular rate HEART SOUNDS: S1 normal and S2 normal GI: COMMON NORMALS: normal to inspection, nondistended, normoactive bowel sounds : COMMON NORMALS: No no CVA tenderness BLADDER/KIDNEY EXAM: No no CVA tenderness Back/Pelvis: COMMON NORMALS: negative for no CVA tenderness Neuro: SENSORIUM/ORIENTATION: Yes alert, Yes oriented to person, No oriented to place and No oriented to time SPEECH: abnormal speech Psych: ATTITUDE: Yes agitated and Yes aggressive MOOD & AFFECT: Yes elevated mood and Yes irritable A&P Assessment and plan (1) Hypertensive urgency: -Systolic blood pressures in the 220s, diastolic blood pressure in the 120s -As far as I can see, no known history of CAD, CHF, strokes -Given patient's acute psychosis, agitation it will be difficult to manage his blood pressure through aggressive interventions such as IVs, drips Plan: -I have started Norvasc 10 mg once daily, hydralazine 25 mg 4 times daily -Recheck blood pressure in an hour -If systolic blood pressure does not decrease below 180, and diastolic does not improve below 120 -Add clonidine 0.1 twice daily, and/or metoprolol 25 twice daily -If blood pressure still difficult to control, the other option would be to sedate the patient, transferred to the CSU and started on a Cardene drip, however this would be quite difficult given his current state We will update overnight physician, and nursing staff at the MPU- Status: Acute Code(s): I16.0 - Hypertensive urgency Coding Level of Care Code Acute Sales Support Assistant for Jhonatan Bajwa Diagnoses Hypertensive urgency I16.0
[2019-06-12] MEDS: amlodipine 10 mg Tablet PO (18:35)
[2019-06-12] MEDS: hyDRALAzine 25 mg Tablet PO ×2 (18:35→21:46)
--- NOTE | 2019-06-12 18:36 | PC.NURSE ---
Dr. Hensley voiced that the hospitalist was going to consult on pt for elevated b/p. Dr Sheffield seen pt and ordered hydralazine 25 mg po qid and also norvasc 25 mg po bid. adjusto writer operator administered both medications as ordered.noc shift to follow up and cont to monitor.
--- NOTE | 2019-06-12 18:55 | PC.NURSE ---
RECEIVED A CALL FROM DR JACOBSON AND VOICED TO RECHECK PT'S B/P IN ONE HR AND FOR NOC STAFF TO FOLLOW UP WITH DR MCLEOD. MUNITIONS HANDLER SUPERVISOR MADE [facility] STAFF AWARE.
[2019-06-12 21:20] VITALS: BP 209/115; PULSE 82; RESP 22; TEMP 36.4; O2SAT 95
[2019-06-12] MEDS: gabapentin 300 mg Capsule 600 MG PO (21:46)
[2019-06-12] MEDS: doxepin 50 mg Capsule PO (21:46)
[2019-06-12] MEDS: OLANZapine ODT 5 MG TABLET PO (21:46)
[2019-06-12 22:04] VITALS: BP 197/84
--- NOTE | 2019-06-12 22:51 | PC.NURSE ---
Palert and oriented x2 which is his norm SITTING AT BENCH ACROSS FROM NURSES STATION AT 2200. When insurance underwriter returned to area pt was on the floor on his side. Pt alert and oriented x2 which is his norm. BP 197/[address] Norton, Hospitalist solution maker, nursing supervisor trust accounts and supervisor microfilm duplicating unit notified. pt able to get up independently after incident. Ate sandwich and juice then assisted back to bed. Appears to be resting in bed at this time
--- NOTE | 2019-06-13 00:42 | PC.NURSE ---
Pt requested medication for sleep at 2145. Medicated with Doxipen 5 mgs po per prn order. Sleeping much improved since last night. Resting comfortably with eyes closed at this time. Respirations even and unlabored.
[2019-06-13 06:00] VITALS: BP 156/89; PULSE 65; RESP 20; TEMP 37; O2SAT 97
[2019-06-13] MEDS: hydroCHLOROthiazide 25 mg Tablet PO (08:38)
[2019-06-13] MEDS: divalproex DR 500 mg Tablet PO ×2 (08:38→17:24)
[2019-06-13] MEDS: hyDRALAzine 25 mg Tablet PO (08:38)
[2019-06-13] MEDS: amlodipine 10 mg Tablet PO (08:38)
--- NOTE | 2019-06-13 09:37 | P.PN_ITS ---
Subjective NPU Subjective: Interval history: The patient continues to rage at all staff, whom he threatens with bodily harm. This escalated to the point that we needed to emergently medicate him by means of injection. He had blocked his door and we had to force it. We are about to have a takedown, when he yielded to an injection without struggle. He was much calmer the rest of the afternoon but today is back to baseline. Mental Status Exam MSE Comments: The patient presents at his stated age, irascible and afflicted with unrelenting fury. Mood is very angry. Affect is appropriate to his mood. It is overtly late apparent that he is agitated and paranoid. Thought processes are racing and laced with threats and insults. Insight and judgment is gone. He is utterly unable to rationally and factually assess his environment and would quickly fall in harm's way if he were discharged, which he demands to no avail. We will not endanger him. Speech is loud, pressured and given to flight of ideas. He is paranoid and guarded. He is potentially dangerous and would get into trouble very rapidly. He is bereft of insight and judgment Vitals/I&O/Wt Last Vital Signs Temp 98.6 F 06/13/19 06:00 Pulse 65 06/13/19 06:00 Resp 20 H 06/13/19 06:00 BP 156/89 06/13/19 06:00 Pulse Ox 97 06/13/19 06:00 Weight last 48 hrs Weight 178 lb 2 oz Data NPU : 06/08/19 18:43 06/08/19 18:43 A&P Assessment and plan (1) Hypertensive urgency: The patient's run as high as 210/120 reported verbally. I talked to the hospitalist, who was kind enough to come down and undertook to adjust his meds. He is difficult to work with and the risk to him is great. He could easily stro ke out at those pressures, particularly as he rages away. Status: Acute Code(s): I16.0 - Hypertensive urgency (2) Acute psychosis: We are keeping him safe on the [place] and intervening with pharmacotherapy. Status: Acute Code(s): F23 - Brief psychotic disorder Involuntary Hold Information 96 Hour Hold: 96 Hour Involuntary Admission: Yes 96 Hour Hold Ending Date: 06/14/19 96 Hour Hold Ending Time: 16:30 Attestations NPU Medical Necessity Statement*: I anticipate 7-10 midnights additional stay Time Spent in Patient Care: Greater than 35 minutes (>than 50% of time spent in counselling and/or direct pt care on unit) . Coding Level of Care Code Acute Outpatient Psychiatrist for Jhonatan Fwd Diagnoses Hypertensive urgency I16.0 Acute psychosis F23
[2019-06-13 13:44] VITALS: BP 178/117; PULSE 50; RESP 18; TEMP 36.9; O2SAT 98
--- NOTE | 2019-06-13 13:45 | PC.NURSE ---
PT IS VERY UPSET A RESULT OF RECEIVING 21 DAY PAPERS. PT IS NOT MAKING SENSE, REFUSING TO HAVE VITAL SIGNS TAKEN, AND DELUSIONAL. STAFF SPOKE WITH PATIENT IN ORDER TO DEESCALATE AND REDIRECT. pATIENT SLOWLY CALMED AND ALLOWED STAFF TO TAKE VITALS, BP 178/117, HR 88, temp 98.5. DISCUSSED WITH PT MEDICATION TO HELP CALM HIS NERVES, PT AGREED. SPOKE WITH PHYSICIAN AND ORDERS RECEIVED.
--- NOTE | 2019-06-13 14:12 | P.PN_ITS ---
Subjective Subjective: Interval history: Ced still seems agitated. Denies any chest pain or shortness of breath. History and physical and daily progress notes reviewed Medications: Reviewed: Yes Vitals/I&O/Wt Last Vital Signs Temp 98.5 F 06/13/19 13:44 Pulse 50 L 06/13/19 13:44 Resp 18 06/13/19 13:44 BP 178/117 06/13/19 13:44 Pulse Ox 98 06/13/19 13:44 Weight last 48 hrs Weight 80.796 kg Physical Exam Narrative: EXAM NARRATIVE: General exam no apparent distress Cardiovascular regular rate and rhythm without murmur Lungs clear Abdomen is soft with positive bowel sounds Extremities no cyanosis clubbing or edema Data : 06/08/19 18:43 06/08/19 18:43 A&P Assessment and plan (1) Hypertensive urgency: Blood pressure appears better, although still having some elevations which correlate with his agitation. Continue Norvasc 10 mg a day Continue clonidine as needed Increase hydralazine to 50 mg 3 times daily Will reevaluate tomorrow Status: Acute Code(s): I16.0 - Hypertensive urgency Attestations Medical Necessity Statement*: As per psychiatry Coding Level of Care Code Acute Sustainability Coordinator for [facility] Diagnoses Hypertensive urgency I16.0
[2019-06-13 14:24] VITALS: BP 178/117
[2019-06-13] MEDS: hyDRALAzine 25 mg Tablet 50 MG PO (14:24)
[2019-06-13] MEDS: cloNIDine 0.1 mg Tablet PO ×2 (14:24→16:43)
[2019-06-13] MEDS: ziprasidone hcl 60 mg Capsule PO (14:24)
--- NOTE | 2019-06-13 15:13 | NPU.GN ---
Neuropsych Unit Group Topic: General Mood of Group this client is very rude to others, yells at others, curses a lot. he is loud and bangs around on things and makes loud noises
[2019-06-13] MEDS: ziprasidone hcl 20 mg Capsule PO (15:55)
--- NOTE | 2019-06-13 15:55 | PC.NURSE ---
PRN GEODON GEODON 20MG PO FOR AGITATION. PATIENT IS AGITATED YELLING AT STAFF AND DELUSIONAL. WILL CONTINUE TO MONITOR FOR MEDICATION EFFECTIVENESS.
--- NOTE | 2019-06-13 17:33 | PC.NURSE ---
FOLLOW UP AFTER ADMINISTRATION OF GEODON 20MG AND CLONIDINE 0.1MG PT HAS CALMED DOWN AND IS INTERACTING WELL WITH PEERS. PT IS CURRENTLY EATING AND SOCIALIZING IN DAY ROOM. BP REMAINS ELEVATED AT 174/110, MD NOTIFIED.
[2019-06-13 21:29] VITALS: BP 171/127; PULSE 95; RESP 24; TEMP 37; O2SAT 94
[2019-06-13 22:30] VITALS: BP 156/108
[2019-06-14] MEDS: doxepin 50 mg Capsule PO (01:01)
[2019-06-14] MEDS: OLANZapine ODT 5 MG TABLET PO (01:02)
--- NOTE | 2019-06-14 03:47 | PC.NURSE ---
Pt remains confused and disoriented throughout evening. attempts to reorient, makes patient even louder, cursing, calling staff naes. Refused HS meds. Attempted to give multiple times. pt would go to room, yell, hit the wall, the door frame, throwing things, tore wrist band off. waking other patients. Pt again offered HS meds, continued to refuse. Due to the fact pt was now hurting himself, he was offered p.o. meds or IM, pt replies I don't care if I break my hand . Security was called. pt the agreed to take Doxepin and Zyprexa, at 0102. Continued to refuse remaining. Pt went to bed, and soon went to sleep. Continue to monitor. Pt continued to refuse further checking of BP
[2019-06-14 06:00] VITALS: BP 145/110; PULSE 65; RESP 24; TEMP 36.7; O2SAT 98
[2019-06-14] MEDS: haloperidol inj 5 mg/mL INJ 1 mL IM (06:30)
[2019-06-14] MEDS: diphenhydrAMINE 50 mg/mL SDV 1mL IM (06:32)
[2019-06-14] MEDS: LORazepam 2 mg/mL INJ 1 mL IM (06:34)
--- NOTE | 2019-06-14 06:48 | PC.NURSE ---
Pt loud threatening staff, aimed coffee as if to throw at staff, cursing, yelling, security called, Ativan 2 mg, Haldol 5 mg Benadryl 50mg given IM without further incident. continue to monitor.
--- NOTE | 2019-06-14 09:27 | PM.PN ---
Subjective Subjective: Interval history: Patient not interviewed today. Reviewed chart in its entirety. Reviewed patient course neuropsychiatric staff. He is still has significant agitation. Medications: Reviewed: Yes Vitals/I&O/Wt Last Vital Signs Temp 98.0 F 06/14/19 06:00 Pulse 65 06/14/19 06:00 Resp 24 H 06/14/19 06:00 BP 145/110 06/14/19 06:00 Pulse Ox 98 06/14/19 06:00 Physical Exam Narrative: EXAM NARRATIVE: Not examined today Data : 06/08/19 18:43 06/08/19 18:43 A&P Assessment and plan (1) Hypertensive urgency: Blood pressure still having some significant elevations, although he is still having significant agitation requiring occasional doses of Ativan Continue Norvasc 10 mg a day Continue clonidine as needed Continue hydrochlorothiazide Hydralazine has been increased to 50 mg 3 times daily. He occasionally has been refusing this Metoprolol 25 mg twice daily added today Status: Acute Code(s): I16.0 - Hypertensive urgency Attestations Medical Necessity Statement*: As per psychiatry Coding Level of Care Code Acute Transformer Shop Supervisor for elisa Bajwa Diagnoses Hypertensive urgency I16.0
[2019-06-14] MEDS: hyDRALAzine 25 mg Tablet 50 MG PO ×2 (09:42→15:09)
[2019-06-14] MEDS: divalproex DR 500 mg Tablet PO ×2 (09:43→18:11)
[2019-06-14] MEDS: amlodipine 10 mg Tablet PO (09:43)
[2019-06-14] MEDS: metoprolol tartrate 25 mg Tablet PO ×2 (09:43→18:11)
[2019-06-14] MEDS: hydroCHLOROthiazide 25 mg Tablet PO (09:44)
[2019-06-14] MEDS: ziprasidone hcl 40 mg Capsule 80 MG PO (09:44)
[2019-06-14 14:00] VITALS: BP 158/95; PULSE 77; RESP 18; TEMP 36.8; O2SAT 99
--- NOTE | 2019-06-14 15:05 | P.PN_ITS ---
Subjective NPU Subjective: Interval history: The patient is subdued today. I suspect the ziprasidone has begun to prevail. The antihypertensive cocktail upon which he has been placed by our consultants may also have had their sway. In any case, he is nowhere near as contentious but remains quite reclusive, although he has not barricaded himself in his room. Medications: Reviewed: Yes Medication Review Details: Current Medications Acetaminophen (Tylenol) 650 mg PO Q4H PRN PRN Reason: MILD PAIN Last Admin: 06/10/19 21:46 Dose: 650 mg Documented by: Amlodipine Besylate (Norvasc) 10 mg PO DAILY [facility] Last Admin: 06/14/19 09:43 Dose: 10 mg Documented by: Benztropine Mesylate (Cogentin) 1 mg PO BID PRN PRN Reason: Mild Extrapyramidal symptoms Camphor/Menthol/Phenol (Blistex) 1 applic TOPICAL Q1H PRN PRN Reason: DRYNESS Clonidine HCl (Catapres) 0.1 mg PO Q12H PRN PRN Reason: SBP >160 Clonidine HCl (Catapres) 0.1 mg PO Q4H PRN PRN Reason: DIASTOLIC BLOOD PRESSURE Diphenhydramine HCl (Benadryl) 50 mg IM ONCE PRN PRN Reason: Severe Extrapyramidal Symptoms Last Admin: 06/14/19 06:32 Dose: 50 mg Documented by: Diphenhydramine HCl (Benadryl) 50 mg IM Q4H PRN PRN Reason: Severe Aggression Divalproex Sodium (Depakote Dr) 500 mg PO BID [facility] Last Admin: 06/14/19 09:43 Dose: 500 mg Documented by: Doxepin HCl (Sinequan) 50 mg PO BEDTIME PRN PRN Reason: insomnia Last Admin: 06/14/19 01:01 Dose: 50 mg Documented by: Gabapentin (Neurontin) 600 mg PO BEDTIME [facility] Last Admin: 06/13/19 22:48 Dose: Not Given Documented by: Haloperidol Lactate (Haldol Inj) 5 mg IM Q4H PRN PRN Reason: Severe Aggression Last Admin: 06/14/19 06:30 Dose: 5 mg Documented by: Hydralazine HCl (Apresoline) 50 mg PO TID [facility] Last Admin: 06/14/19 15:09 Dose: 50 mg Documented by: Hydrochlorothiazide (Hctz) 25 mg PO DAILY [facility] Last Admin: 06/14/19 09:44 Dose: 25 mg Documented by: Loperamide HCl (Imodium Capsule) 2 mg PO Q6H PRN PRN Reason: DIARRHEA Lorazepam (Ativan) 2 mg IM Q4H PRN PRN Reason: Severe Aggression Last Admin: 06/14/19 06:34 Dose: 2 mg Documented by: Lorazepam (Ativan) 0.5 mg PO Q4H PRN PRN Reason: ANXIETY Last Admin: 06/10/19 21:49 Dose: 0.5 mg Documented by: Metoprolol Tartrate (Lopressor) 25 mg PO BID [facility] Last Admin: 06/14/19 09:43 Dose: 25 mg Documented by: Nicotine (Nicoderm 21 Mg Patch) 1 patch TRANSDERMA DAILY PRN PRN Reason: NICOTINE WITHDRAWAL Nicotine Polacrilex (Nicorette) 2 mg BUCCAL Q2H PRN PRN Reason: NICOTINE WITHDRAWAL Last Admin: 06/10/19 16:52 Dose: 2 mg Documented by: Olanzapine (Zyprexa Zydis) 5 mg PO Q4H PRN PRN Reason: Agitation/Psychosis Last Admin: 06/12/19 21:46 Dose: 5 mg Documented by: Olanzapine (Zyprexa Zydis) 5 mg PO BEDTIME [facility] Last Admin: 06/14/19 01:02 Dose: 5 mg Documented by: Ondansetron HCl (Zofran) 4 mg PO Q6H PRN PRN Reason: NAUSEA AND VOMITING Ziprasidone (Geodon) 20 mg PO Q4H PRN PRN Reason: AGITATION Last Admin: 06/13/19 15:55 Dose: 20 mg Documented by: Ziprasidone (Geodon) 80 mg PO DAILY [facility] Last Admin: 06/14/19 09:44 Dose: 80 mg Documented by: Mental Status Exam MSE Comments: The patient presents at his stated age, disheveled but now very different in comportment. Mood is passive and subdued. Affect is blunted. He is no longer agitated or paranoid. He allows me to enter the room without a single threat. His erstwhile guarded state is gone. Thought processes are measured and free of blocking, racing and looseness of association. Insight and judgment is still absent. He is utterly unable to rationally and factually ass ess his environment and would quickly fall in harm's way if he were discharged, which he no longer demands. Speech is quiet, free of pressure, dysarthria and aprosody. He is far less guarded. He remains bereft of insight and judgment. Vitals/I&O/Wt Last Vital Signs Temp 98.0 F 06/14/19 06:00 Pulse 65 06/14/19 06:00 Resp 24 H 06/14/19 06:00 BP 145/110 06/14/19 06:00 Pulse Ox 98 06/14/19 06:00 Data NPU : 06/08/19 18:43 06/08/19 18:43 A&P Assessment and plan (1) Hypertensive urgency: The patient's blood pressure is down to 158/95. He has a cocktail which has proven modestly efficacious and there may be room for further improvement as our consultants make further adjustments. Status: Acute Code(s): I16.0 - Hypertensive urgency (2) Bipolar I disorder with mood-congruent psychotic features: We do not have the historical background. However this certainly looks like a mixed episode with psychosis. Status: Acute Code(s): F31.9 - Bipolar disorder, unspecified Involuntary Hold Information 96 Hour Hold: 96 Hour Involuntary Admission: Yes 96 Hour Hold Ending Date: 06/14/19 96 Hour Hold Ending Time: 16:30 21 Day Hold: 21 Day Hold Start Date: 06/14/19 21 Day Hold Start Time: 14:32 21 Day Hold End Date: 07/06/19 21 Day Hold End Time: 14:32 Comments: I appeared at a probate court hearing to show cause why this patient should not have his Lamar interest returned to him. The hospital prevailed and its petition for a 21-day extension of the patient's involuntary hospitalization. Attestations NPU Medical Necessity Statement*: This patient is improving very slowly. I anticipate 10-15 midnights. Time Spent in Patient Care: Greater than 35 minutes (>than 50% of time spent in counselling and/or direct pt care on unit) . Counting my court appearance and actual evaluation of the patient in the hospital the total time would be 120 minutes. Coding Level of Care Code Acute Machinist Automotive for Jhonatan Bajwa Diagnoses Hypertensive urgency I16.0 Bipolar I disorder with mood-congruent psychotic features F31.9
--- NOTE | 2019-06-14 17:20 | PC.SOCIAL ---
21 day hold granted. If extension is needed it would have to be filed on or before 05/30/19
[2019-06-14 20:44] VITALS: BP 133/75; PULSE 69; RESP 20; TEMP 36.7; O2SAT 95
[2019-06-15] MEDS: hyDRALAzine 25 mg Tablet 50 MG PO ×3 (00:50→15:04)
[2019-06-15] MEDS: gabapentin 300 mg Capsule 600 MG PO (00:50)
[2019-06-15] MEDS: doxepin 50 mg Capsule PO (00:51)
[2019-06-15] MEDS: OLANZapine ODT 5 MG TABLET PO ×2 (00:52→21:03)
--- NOTE | 2019-06-15 00:55 | PC.NURSE ---
Pt refused HS meds for the first part of the shift. episodes of anger outburst, yelling, calling staff names. Slept on/off. remains paranoid re the people that did him wrong, or was out to do him wrong. Resistant to supportive care. Finally at 0052, was agreeable to take scheduled meds, without further incident. Continue to monitor.
[2019-06-15 06:00] VITALS: RESP 20
[2019-06-15] MEDS: metoprolol tartrate 25 mg Tablet PO (07:54)
[2019-06-15] MEDS: amlodipine 10 mg Tablet PO (07:55)
[2019-06-15] MEDS: hydroCHLOROthiazide 25 mg Tablet PO (07:55)
[2019-06-15] MEDS: divalproex DR 500 mg Tablet PO (07:55)
[2019-06-15] MEDS: ziprasidone hcl 40 mg Capsule 80 MG PO (07:56)
--- NOTE | 2019-06-15 09:24 | P.PN_ITS ---
Subjective NPU Subjective: Interval history: Yesterday the hospital was granted a 21-day extension of the patient's involuntary hospitalization. He is, fortunately, taking his meds and appears to be slowing down. It is not possible to have a normal conversation with him, as he escalates easily, but not to the point at which he had previously gone. I believe he is on right combinations of meds psychiatrically and our hospitalist group has gotten his blood pressure down to a less dangerous level. Today, it was 133/75! Mental Status Exam MSE Comments: The patient presents at his stated age, disheveled but now very different in comportment. Mood is calm but he escalates easily. Affect is lashon ropriate when he is not agitated. There is no paranoia and he joins his peers in the day room for breakfast. Thought processes are measured and free of blocking, racing and looseness of association. Insight and judgment are still absent. He is beginning to regain something salvador to reality testing. Speech is quiet, free of pressure, dysarthria and aprosody. He is far less guarded. He denies suicidal or homicidal ideation plan or intent. Cognition, including but not limited to orientation, recent and remote memory and reason is reconstituting. Vitals/I&O/Wt Last Vital Signs Temp 98.0 F 06/14/19 20:44 Pulse 69 06/14/19 20:44 Resp 20 H 06/15/19 06:00 BP 133/75 06/14/19 20:44 Pulse Ox 95 06/14/19 20:44 Data NPU : 06/08/19 18:43 06/08/19 18:43 A&P Assessment and plan (1) Bipolar I disorder with mood-congruent psychotic features: The patient is responding to present pharmacotherapy and is now less symptomatic. Status: Acute Code(s): F31.9 - Bipolar disorder, unspecified (2) Hypertensive urgency: The patient has a pre-hypertensive blood pressure today. (133/75) Status: Acute Code(s): I16.0 - Hypertensive urgency Involuntary Hold Information 96 Hour Hold: 96 Hour Involuntary Admission: Yes 96 Hour Hold Ending Date: 06/14/19 96 Hour Hold Ending Time: 16:30 21 Day Hold: 21 Day Hold Start Date: 06/14/19 21 Day Hold Start Time: 14:32 21 Day Hold End Date: 04/15/20 21 Day Hold End Time: 14:32 Attestations NPU Medical Necessity Statement*: I anticipate 9-11 midnights at least 2 midnights' additional stay. Time Spent in Patient Care: Greater than 35 minutes (>than 50% of time spent in counselling and/or direct pt care on unit) . Coding Level of Care Code Acute Lock Tender for Jhonatan Bajwa Diagnoses Bipolar I disorder with mood-congruent psychotic features F31.9 Hypertensive urgency I16.0
--- NOTE | 2019-06-15 10:42 | P.PN_ITS ---
Subjective Subjective: Interval history: Patient was not examined today. Medications: Reviewed: Yes Vitals/I&O/Wt Last Vital Signs Temp 98.0 F 06/14/19 20:44 Pulse 69 06/14/19 20:44 Resp 20 H 06/15/19 06:00 BP 133/75 06/14/19 20:44 Pulse Ox 95 06/14/19 20:44 Physical Exam Narrative: EXAM NARRATIVE: Not examined Data : 06/08/19 18:43 06/08/19 18:43 A&P Assessment and plan (1) Hypertensive urgency: Blood pressure have improved significantly with medication, improvement of agitation Continue Norvasc 10 mg a day, hydrochlorothiazide, hydralazine, metoprolol. No changes are needed today as blood pressure 133/75. He may discharge on these medicines, and follow-up with his primary care provider. I will sign off, but be available for any questions. Status: Acute Code(s): I16.0 - Hypertensive urgency Attestations Medical Necessity Statement*: As per primary Coding Level of Care Code Acute Child Development Teacher for [facility]dee Diagnoses Hypertensive urgency I16.0
[2019-06-15 14:00] VITALS: BP 137/83; PULSE 75; RESP 18; TEMP 36.9; O2SAT 96
--- NOTE | 2019-06-15 17:56 | PC.SOCIAL ---
this patient was very irritable the later part of the afternoon today. there was mention of not getting as much social security income. this will need to be pursued most likely face to face at the social security office when possible. this worker wonders if it could be handle at this time as patient seems to have paranoia about much and it would be probably good if he can get something resolved that has been bothering him. He had said to this worker he had a TBI and it seems that it does not take much to get him angry.
--- NOTE | 2019-06-15 18:33 | PC.NURSE ---
REFUSED SCHEDULED METOPROLOL & DEPAKOTE. PT UPSET THAT HE COULDN'T HAVE DECK OF CARDS IN HIS ROOM. STATED TO STAFF THAT HE WOULDN'T TAKE ANY MEDS UNLESS HE GOT THE CARDS IN HIS ROOM. STAFF ATTEMPTED TO EDUCATE PT ON UNIT RULES, NO SUCCESS.
--- NOTE | 2019-06-15 21:03 | PC.NURSE ---
pt offered HS meds at this time, pt refused scheduled gabapentine and hydralazine but agreed to take his clonidine and zyprexa.
[2019-06-15 22:00] VITALS: BP 125/77; PULSE 79; RESP 19; TEMP 36.8; O2SAT 92
[2019-06-16 06:00] VITALS: BP 136/91; PULSE 71; RESP 17; TEMP 36.9; O2SAT 92
[2019-06-16] MEDS: metoprolol tartrate 25 mg Tablet PO (08:04)
[2019-06-16] MEDS: amlodipine 10 mg Tablet PO (08:05)
[2019-06-16] MEDS: hydroCHLOROthiazide 25 mg Tablet PO (08:09)
[2019-06-16] MEDS: hyDRALAzine 25 mg Tablet 50 MG PO ×2 (09:02→15:10)
[2019-06-16] MEDS: ziprasidone hcl 40 mg Capsule 80 MG PO (09:03)
--- NOTE | 2019-06-16 09:28 | P.PN_ITS ---
Subjective NPU Subjective: Interval history: Ced presents today very animated and recounting stories of his [place] days. Very dramatically describing playing landing on aircraft carriers and the like. 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 He left me around his room and showed me imperfections in sherry and miller etc. he was very particular about what I was wearing and what he thought it meant. At one point he took exception to be wearing a protective mask saying that it was not necessary and taking shots at people's responses to the pandemic.We discussed the risks benefits and alternatives of increasing his medication and he understood and agreed to p roceed as is documented in this note. Medications: Reviewed: Yes Mental Status Exam MSE Comments: This is a well-nourished well-developed white male with adequate dress, grooming and eye contact. No abnormal movements except for psychomotor agitation. Semi-cooperative with exam in no mild to moderate distress. Speech was increased rate and volume and at times pressured. Mood described as a little better, affect irritable. Thought process organized. Thought content: Patient denied any suicidal or homicidal ideations, there were no delusions reported or but he did appear to have some grandiosity, he denied any auditory or visual hallucinations. Attention and concentration appeared mostly intact with some difficulty with attention and memory appeared unreliable but none were formally tested. He is alert and oriented x3. Insight and judgment are limited. Vitals/I&O/Wt Last Vital Signs Temperature 98.4, pulse 71, respirations 17, pulse ox 92%, blood pressure 136/91. Home Medications No Known Home Medications 06/08/19 [History Confirmed 06/08/19] Active Medications Acetaminophen (Tylenol) 650 mg PO Q4H PRN PRN Reason: MILD PAIN Last Admin: 06/10/19 21:46 Dose: 650 mg Documented by: Albuterol Sulfate (Ventolin) 2 puff INHALATION Q4H.RESPIRATORY PRN PRN Reason: SHORTNESS OF BREATH Last Admin: 06/16/19 22:12 Dose: 2 puff Documented by: Amlodipine Besylate (Norvasc) 10 mg PO DAILY [facility] Last Admin: 06/16/19 08:05 Dose: 10 mg Documented by: Benztropine Mesylate (Cogentin) 1 mg PO BID PRN PRN Reason: Mild Extrapyramidal symptoms Camphor/Menthol/Phenol (Blistex) 1 applic TOPICAL Q1H PRN PRN Reason: DRYNESS Clonidine HCl (Catapres) 0.1 mg PO Q12H PRN PRN Reason: SBP >160 Clonidine HCl (Catapres) 0.1 mg PO Q4H PRN PRN Reason: DIASTOLIC BLOOD PRESSURE Diphenhydramine HCl (Benadryl) 50 mg IM ONCE PRN PRN Reason: Severe Extrapyramidal Symptoms Last Admin: 06/14/19 06:32 Dose: 50 mg Documented by: Diphenhydramine HCl (Benadryl) 50 mg IM Q4H PRN PRN Reason: Severe Aggression Divalproex Sodium (Depakote Dr) 500 mg PO BID [facility] Last Admin: 06/16/19 18:15 Dose: Not Given Documented by: Doxepin HCl (Sinequan) 50 mg PO BEDTIME PRN PRN Reason: insomnia Last Admin: 06/17/19 00:31 Dose: 50 mg Documented by: Gabapentin (Neurontin) 600 mg PO BEDTIME [facility] Last Admin: 06/16/19 21:18 Dose: Not Given Documented by: Haloperidol Lactate (Haldol Inj) 5 mg IM Q4H PRN PRN Reason: Severe Aggression Last Admin: 06/14/19 06:30 Dose: 5 mg Documented by: Hydralazine HCl (Apresoline) 50 mg PO TID [facility] Last Admin: 06/16/19 21:18 Dose: Not Given Documented by: Hydrochlorothiazide (Hctz) 25 mg PO DAILY [facility] Last Admin: 06/16/19 08:09 Dose: 25 mg Documented by: Loperamide HCl (Imodium Capsule) 2 mg PO Q6H PRN PRN Reason: DIARRHEA Metoprolol Tartrate (Lopressor) 25 mg PO BID [facility] Last Admin: 06/16/19 18:15 Dose: Not Given Documented by: Nicotine (Nicoderm 21 Mg Patch) 1 patch TRANSDERMA DAILY PRN PRN Reason: NICOTINE WITHDRAWAL Nicotine Polacrilex (Nicorette) 2 mg BUCCAL Q2H PRN PRN Reason: NICOTINE WITHDRAWAL Last Admin: 06/10/19 16:52 Dose: 2 mg Documented by: Olanzapine (Zyprexa Zydis) 5 mg PO Q4H PRN PRN Reason: Agitation/Psychosis Last Admin: 03/27/20 00:31 Dose: 5 mg Documented by: Olanzapine (Zyprexa Zydis) 5 mg PO BEDTIME [facility] Last Admin: 06/16/19 21:17 Dose: 5 mg Documented by: Ondansetron HCl (Zofran) 4 mg PO Q6H PRN PRN Reason: NAUSEA AND VOMITING Ziprasidone (Geodon) 20 mg PO Q4H PRN PRN Reason: AGITATION Last Admin: 06/17/19 00:31 Dose: 20 mg Documented by: Ziprasidone (Geodon) 80 mg PO DAILY [facility] Last Admin: 06/16/19 09:03 Dose: 80 mg Documented by: Ziprasidone (Geodon) 20 mg PO 0700 [facility] Last Admin: 06/17/19 06:03 Dose: 20 mg Documented by: Data NPU : 06/08/19 18:43 06/08/19 18:43 A&P Assessment and plan (1) Bipolar I disorder with mood-congruent psychotic features: This is a 59-year-old white male with a long history of bipolar disorder who presents with alexsander amaya on a 21-day hold. 1. Continue current medications. Except increased Geodon by 20 mg p.o. every morning 2. Encourage individual, group and milieu therapy. 3. Continue to 15-minute checks for safety. Status: Acute Code(s): F31.9 - Bipolar disorder, unspecified (2) Acute psychosis: Status: Acute Code(s): F23 - Brief psychotic disorder Involuntary Hold Information 2 96 Hour Hold: 96 Hour Involuntary Admission: Yes 96 Hour Hold Ending Date: 06/14/19 96 Hour Hold Ending Time: 16:30 21 Day Hold: 21 Day Hold Start Date: 06/14/19 21 Day Hold Start Time: 14:32 21 Day Hold End Date: 07/06/19 21 Day Hold End Time: 14:32 Attestations NPU Medical Necessity Statement*: Inpatient hospitalization is medically necessary and the clinically appropriate intervention at this time. We will adjust and add medications as indicated. Likely length of stay 5 to 7 days. Coding Level of Care Code Acute Director Of Security for [facility] Fwd Diagnoses Bipolar I disorder with mood-congruent psychotic features F31.9 Acute psychosis F23
[2019-06-16 14:00] VITALS: RESP 18
[2019-06-16 20:25] VITALS: BP 152/101; PULSE 71; RESP 21; TEMP 36.6; O2SAT 97
[2019-06-16] MEDS: OLANZapine ODT 5 MG TABLET PO (21:17)
[2019-06-16] MEDS: ziprasidone hcl 20 mg Capsule PO (21:18)
[2019-06-16] MEDS: albuterol 8 gm MDI 2 PUFF INHALATION (22:12)
[2019-06-17] MEDS: OLANZapine ODT 5 MG TABLET PO ×2 (00:31→21:58)
[2019-06-17] MEDS: ziprasidone hcl 20 mg Capsule PO ×3 (00:31→21:57)
[2019-06-17] MEDS: doxepin 50 mg Capsule PO ×2 (00:31→21:56)
--- NOTE | 2019-06-17 00:42 | PC.NURSE ---
Pt continually coming up to the nurses desk yelling profanities. One time, pt noted yelling that he was given a pair of underwear that was dirty with skid peña . A different pair of underwear given to pt. Another time yelling that someone stole his glasses, the pair that was in his personal items, he claims is not his. Pt noted blocking his room door with the extra bed and side table. when HIGH WIRE ARTIST tried to round on him, she told him he could not block the door, pt was noted shoving his furniture around. Security was called to assist with GYMNASTIC COACH giving PRN medication. Pt agreed to take scheduled HS meds that he refused to take earlier at this time also.
--- NOTE | 2019-06-17 00:55 | PC.NURSE ---
Staff was doing rounds 00:15. Patient had door shut to the room. Staff opened the door to find that patient had barricaded them self in the room moving the other bed in the room behind the door; to the point the door opening only an inch. Staff asked patient Why did you move the bed behind the door? Patient stated, I moved it because I'm tired of people opening my door. Staff moved other bed back into the position it was originally in. Staff told patient, We can't move the bed behind the door. Doors have to stay open you can crack the door but we can't have the door shut. Patient had appeared agitated for hours since the shift began. Patient was down the hallway yelling and verbal deescalation was not effective, patient continued to be come more and more escalated ending with the patient barricading himself into his room with the other bed. Other patients had complained about the loudness and had to be be given medications to help calm them down because this patient was yelling at the nurses station and down the hallway, intrusive, and was disturbing the general order on the unit. Patient appeared to be just as agitated as before when staff moved the bed back and cracked the door.
[2019-06-17 06:00] VITALS: BP 166/93; PULSE 95; RESP 18; TEMP 36.9; O2SAT 95
[2019-06-17] MEDS: ziprasidone hcl 40 mg Capsule 80 MG PO (09:04)
[2019-06-17] MEDS: hydroCHLOROthiazide 25 mg Tablet PO (09:04)
[2019-06-17] MEDS: hyDRALAzine 25 mg Tablet 50 MG PO ×2 (09:04→21:56)
[2019-06-17] MEDS: amlodipine 10 mg Tablet PO (09:04)
[2019-06-17] MEDS: metoprolol tartrate 25 mg Tablet PO (09:04)
--- NOTE | 2019-06-17 09:04 | PC.NURSE ---
nurse note patient took his medication, then showed that he swallowed the pills but then went to the toilet and spit out his depakote and flushed it.
[2019-06-17 14:00] VITALS: BP 161/89; PULSE 74; RESP 18; TEMP 36.9; O2SAT 95
--- NOTE | 2019-06-17 14:55 | P.PN_ITS ---
Subjective NPU Subjective: Interval history: Ced presents today really agitated and continuing his stories on many fronts. Most of the stories are very narcissistic and grandiose. He spent part of the session today talking about how he had followed Bebeto Artis as president his whole life. When I brought up the fact that he has only been president for 3ish years and that he is 59. He then went on another tangent that somehow Bebeto Artis was the leader at a place that he was at when he was in the [place]. When I cleared about Bebeto Artis being in the , he then said that what he meant was that he owned some place that they use for functions. He continued to have [place] driven stories. He talked about his sister today being in the [employer], but that she did someth ing that he could not talk about, so she only lasted three years, but just a lot of grandiose stories with no real focus or purpose. We discussed the medication, which had been reported that he was spitting out. He gave some story as to why that occurred, and it had nothing to do with trying not to take the medication. He reported that he would take his medication moving forward, but then shortly after our session, the nurse came back and said that he said that he would only take the medication if he and I sat down and I discussed why he needed to have the medication, which was in fact what we did. Mental Status Exam MSE Comments: This is a well-nourished, well-developed, older, white male, wi th adequate dress, grooming, and eye contact. No abnormal movements except for significant psychomotor agitation. Cooperative with exam in no acute distress. Speech was increased rate and volume and somewhat pressured. Mood described as fine; affect elevated. Thought process, mostly organized. Thought content: patient denied any suicidal or homicidal ideation, there were no delusions reported, but clear persecutory paranoid and grandiose delusions present. He denied any auditory or visual hallucinations. Attention and concentration were limited. Memory was unreliable but none were formally tested. He is alert and oriented to person and place. Insight and judgment are impaired. Vitals/I&O/Wt Last Vital Signs Temp 98.8 F 06/17/19 20:41 Pulse 80 06/17/19 20:52 Resp 16 03/27/20 20:52 BP 183/101 06/17/19 21:57 Pulse Ox 98 06/17/19 20:52 Home Medications No Known Home Medications 06/08/19 [History Confirmed 06/08/19] Active Medications Acetaminophen (Tylenol) 650 mg PO Q4H PRN PRN Reason: MILD PAIN Last Admin: 06/10/19 21:46 Dose: 650 mg Documented by: Albuterol Sulfate (Ventolin) 2 puff INHALATION Q4H.RESPIRATORY PRN PRN Reason: SHORTNESS OF BREATH Last Admin: 06/17/19 20:52 Dose: 2 puff Documented by: Amlodipine Besylate (Norvasc) 10 mg PO DAILY [facility] Last Admin: 06/17/19 09:04 Dose: 10 mg Documented by: Benztropine Mesylate (Cogentin) 1 mg PO BID PRN PRN Reason: Mild Extrapyramidal symptoms Camphor/Menthol/Phenol (Blistex) 1 applic TOPICAL Q1H PRN PRN Reason: DRYNESS Clonidine HCl (Catapres) 0.1 mg PO Q12H PRN PRN Reason: SBP >160 Last Admin: 06/17/19 21:57 Dose: 0.1 mg Documented by: Clonidine HCl (Catapres) 0.1 mg PO Q4H PRN PRN Reason: DIASTOLIC BLOOD PRESSURE Diphenhydramine HCl (Benadryl) 50 mg IM ONCE PRN PRN Reason: Severe Extrapyramidal Symptoms Last Admin: 06/14/19 06:32 Dose: 50 mg Documented by: Diphenhydramine HCl (Benadryl) 50 mg IM Q4H PRN PRN Reason: Severe Aggression Divalproex Sodium (Depakote Dr) 500 mg PO BID [facility] Last Admin: 06/17/19 18:00 Dose: Not Given Documented by: Doxepin HCl (Sinequan) 50 mg PO BEDTIME PRN PRN Reason: insomnia Last Admin: 06/17/19 21:56 Dose: 50 mg Documented by: Gabapentin (Neurontin) 600 mg PO BEDTIME [facility] Last Admin: 06/17/19 21:58 Dose: 600 mg Documented by: Haloperidol Lactate (Haldol Inj) 5 mg IM Q4H PRN PRN Reason: Severe Aggression Last Admin: 06/14/19 06:30 Dose: 5 mg Documented by: Hydralazine HCl (Apresoline) 50 mg PO TID [facility] Last Admin: 06/17/19 21:56 Dose: 50 mg Documented by: Hydrochlorothiazide (Hctz) 25 mg PO DAILY [facility] Last Admin: 06/17/19 09:04 Dose: 25 mg Documented by: Loperamide HCl (Imodium Capsule) 2 mg PO Q6H PRN PRN Reason: DIARRHEA Lorazepam (Ativan) 2 mg IM Q4H PRN PRN Reason: SEVERE AGGRESSION Metoprolol Tartrate (Lopressor) 25 mg PO BID [facility] Last Admin: 06/17/19 18:00 Dose: Not Given Documented by: Nicotine (Nicoderm 21 Mg Patch) 1 patch TRANSDERMA DAILY PRN PRN Reason: NICOTINE WITHDRAWAL Nicotine Polacrilex (Nicorette) 2 mg BUCCAL Q2H PRN PRN Reason: NICOTINE WITHDRAWAL Last Admin: 06/10/19 16:52 Dose: 2 mg Documented by: Olanzapine (Zyprexa Zydis) 5 mg PO Q4H PRN PRN Reason: Agitation/Psychosis Last Admin: 06/17/19 00:31 Dose: 5 mg Documented by: Olanzapine (Zyprexa Zydis) 5 mg PO BEDTIME [facility] Last Admin: 06/17/19 21:58 Dose: 5 mg Documented by: Ondansetron HCl (Zofran) 4 mg PO Q6H PRN PRN Reason: NAUSEA AND VOMITING Ziprasidone (Geodon) 20 mg PO Q4H PRN PRN Reason: AGITATION Last Admin: 06/17/19 21:57 Dose: 20 mg Documented by: Ziprasidone (Geodon) 80 mg PO DAILY [facility] Last Admin: 06/17/19 09:04 Dose: 80 mg Documented by: Ziprasidone (Geodon) 20 mg PO 0700 [facility] Last Admin: 06/17/19 06:03 Dose: 20 mg Documented by: Ziprasidone (Geodon) 20 mg IM BID PRN PRN Reason: AGITATION Data NPU : 06/08/19 18:43 06/08/19 18:43 A&P Additional A&P Information (1) Bipolar I disorder with mood-congruent psychotic features: This is a 59-year-old white male with a long history of bipolar disorder who presents with alexsander amaya on a 21-day hold. 1. Continue current medications. 2. Encourage individual, group and milieu therapy. 3. Continue to 15-minute checks for safety. (2) Acute psychosis: Involuntary Hold Information 96 Hour Hold: 96 Hour Involuntary Admission: Yes 96 Hour Hold Ending Date: 06/14/19 96 Hour Hold Ending Time: 16:30 21 Day Hold: 21 Day Hold Start Date: 06/14/19 21 Day Hold Start Time: 14:32 21 Day Hold End Date: 07/06/19 21 Day Hold End Time: 14:32 Attestations NPU Medical Necessity Statement*: Inpatient hospitalization is medically necessary and the clinically appropriate intervention at this time. We will adjust and add medications as indicated. Likely length of stay 5 to 7 days. Coding Level of Care Code Acute Senior Software Analyst for Jhonatan Bajwa
[2019-06-17 20:41] VITALS: BP 183/101; PULSE 80; RESP 16; TEMP 37.1; O2SAT 97
[2019-06-17 20:52] VITALS: PULSE 80; RESP 16; O2SAT 98
[2019-06-17] MEDS: albuterol 8 gm MDI 2 PUFF INHALATION (20:52)
[2019-06-17 21:57] VITALS: BP 183/101
[2019-06-17] MEDS: cloNIDine 0.1 mg Tablet PO (21:57)
[2019-06-17] MEDS: gabapentin 300 mg Capsule 600 MG PO (21:58)
--- NOTE | 2019-06-17 21:59 | PC.NURSE ---
Pt given HS meds gabapentin, hydralazine, and zyprexa as well as PRN meds, geodon, clonidine, and doxepin.
[2019-06-18 06:00] VITALS: BP 150/114; PULSE 77; RESP 24; TEMP 36.6
--- NOTE | 2019-06-18 06:55 | PC.NURSE ---
HANG VERIFIED GEODON SCHEDULE WITH DR. LEO. PT TAKES GEODON 20 MG PO 0700 & GEODON 80MG PO 0900.
[2019-06-18] MEDS: ziprasidone hcl 20 mg Capsule PO ×2 (07:01→16:12)
[2019-06-18] MEDS: albuterol 8 gm MDI 2 PUFF INHALATION (08:08)
[2019-06-18 08:10] VITALS: PULSE 88; RESP 18; O2SAT 97
[2019-06-18 08:12] VITALS: PULSE 89
[2019-06-18] MEDS: amlodipine 10 mg Tablet PO (08:18)
[2019-06-18] MEDS: metoprolol tartrate 25 mg Tablet PO ×2 (08:18→17:48)
[2019-06-18] MEDS: hyDRALAzine 25 mg Tablet 50 MG PO ×2 (08:18→22:22)
[2019-06-18] MEDS: divalproex DR 500 mg Tablet PO ×2 (08:19→22:23)
[2019-06-18] MEDS: ziprasidone hcl 40 mg Capsule 80 MG PO (08:19)
[2019-06-18] MEDS: hydroCHLOROthiazide 25 mg Tablet PO (08:20)
[2019-06-18 14:00] VITALS: BP 119/81; PULSE 84; RESP 18
--- NOTE | 2019-06-18 16:48 | PM.NPN ---
Subjective NPU Subjective: Interval history: Ced presents today reporting that he is doing okay, however he continues the significant aggressive posturing, almost getting in altercation with another client because he got in some political conversation and was saying things that were untrue and unreasonable. He gestured to the person that everything was fine and then as he was walking away, he said something that was irritating as what he initially had said, but then turned to the staff and is confused why the person is upset. He reports he is open to taking medication, but now we have gone to a very observant process even longer after he takes the medication to avoid the spitting behavior and then we have the injectable there in the event that he refuses. He does appear to be sleeping better. Medications: Reviewed: Yes Mental Status Exam MSE Comments: This is a slightly overweight, older white male, with limited dress, grooming, and adequate contact. No abnormal movements except for psychomotor agitation. Semi-cooperative with exam in mild distress. Speech was increased rate and volume. Mood described as fine; affect irritable and elevated. Thought process, organized for the most part. Thought content: patient denied any suicidal or homicidal ideation, there were no delusions reported but clear grandiose thinking and persecutory thinking exists. Speech was pressured. He denied any auditory or visual hallucinations. Attention and concentration are limited, and memory is unreliable but none were formally tested. Alert and oriented to person and place. Insight and judgment are impaired Vitals/I&O/Wt Last Vital Signs Temp 97.3 F L 06/18/19 22:00 Pulse 70 06/18/19 22:00 Resp 19 H 06/18/19 22:00 BP 134/86 06/18/19 22:00 Pulse Ox 93 06/18/19 22:00 Home Medications No Known Home Medications 06/08/19 [History Confirmed 06/08/19] Active Medications Acetaminophen (Tylenol) 650 mg PO Q4H PRN PRN Reason: MILD PAIN Last Admin: 06/10/19 21:46 Dose: 650 mg Documented by: Albuterol Sulfate (Ventolin) 2 puff INHALATION Q4H.RESPIRATORY PRN PRN Reason: SHORTNESS OF BREATH Last Admin: 06/18/19 08:08 Dose: 2 puff Documented by: Amlodipine Besylate (Norvasc) 10 mg PO DAILY [facility] Last Admin: 06/18/19 08:18 Dose: 10 mg Documented by: Benztropine Mesylate (Cogentin) 1 mg PO BID PRN PRN Reason: Mild Extrapyramidal symptoms Camphor/Menthol/Phenol (Blistex) 1 applic TOPICAL Q1H PRN PRN Reason: DRYNESS Clonidine HCl (Catapres) 0.1 mg PO Q12H PRN PRN Reason: SBP >160 Last Admin: 06/17/19 21:57 Dose: 0.1 mg Documented by: Clonidine HCl (Catapres) 0.1 mg PO Q4H PRN PRN Reason: DIASTOLIC BLOOD PRESSURE Diphenhydramine HCl (Benadryl) 50 mg IM ONCE PRN PRN Reason: Severe Extrapyramidal Symptoms Last Admin: 06/14/19 06:32 Dose: 50 mg Documented by: Diphenhydramine HCl (Benadryl) 50 mg IM Q4H PRN PRN Reason: Severe Aggression Divalproex Sodium (Depakote Dr) 500 mg PO BID [facility] Last Admin: 06/18/19 22:23 Dose: 500 mg Documented by: Doxepin HCl (Sinequan) 50 mg PO BEDTIME PRN PRN Reason: insomnia Last Admin: 06/17/19 21:56 Dose: 50 mg Documented by: Gabapentin (Neurontin) 600 mg PO BEDTIME [facility] Last Admin: 06/18/19 22:23 Dose: 600 mg Documented by: Haloperidol Lactate (Haldol Inj) 5 mg IM Q4H PRN PRN Reason: Severe Aggression Last Admin: 06/14/19 06:30 Dose: 5 mg Documented by: Hydralazine HCl (Apresoline) 50 mg PO TID [facility] Last Admin: 06/18/19 22:22 Dose: 50 mg Documented by: Hydrochlorothiazide (Hctz) 25 mg PO DAILY [facility] Last Admin: 06/18/19 08:20 Dose: 25 mg Documented by: Loperamide HCl (Imodium Capsule) 2 mg PO Q6H PRN PRN Reason: DIARRHEA Lorazepam (Ativan) 2 mg IM Q4H PRN PRN Reason: SEVERE AGGRESSION Metoprolol Tartrate (Lopressor) 25 mg PO BID [facility] Last Admin: 06/18/19 17:48 Dose: 25 mg Documented by: Nicotine (Nicoderm 21 Mg Patch) 1 patch TRANSDERMA DAILY PRN PRN Reason: NICOTINE WITHDRAWAL Nicotine Polacrilex (Nicorette) 2 mg BUCCAL Q2H PRN PRN Reason: NICOTINE WITHDRAWAL Last Admin: 06/10/19 16:52 Dose: 2 mg Documented by: Olanzapine (Zyprexa Zydis) 5 mg PO Q4H PRN PRN Reason: Agitation/Psychosis Last Admin: 06/17/19 00:31 Dose: 5 mg Documented by: Olanzapine (Zyprexa Zydis) 5 mg PO BEDTIME [facility] Last Admin: 06/18/19 22:23 Dose: 5 mg Documented by: Ondansetron HCl (Zofran) 4 mg PO Q6H PRN PRN Reason: NAUSEA AND VOMITING Ziprasidone (Geodon) 20 mg PO Q4H PRN PRN Reason: AGITATION Last Admin: 06/18/19 16:12 Dose: 20 mg Documented by: Ziprasidone (Geodon) 80 mg PO DAILY [facility] Last Admin: 06/18/19 08:19 Dose: 80 mg Documented by: Ziprasidone (Geodon) 20 mg PO 0700 [facility] Last Admin: 06/18/19 07:01 Dose: 20 mg Documented by: Ziprasidone (Geodon) 20 mg IM BID PRN PRN Reason: AGITATION Data NPU : 06/08/19 18:43 06/08/19 18:43 A&P Assessment and plan (1) Bipolar I disorder with mood-congruent psychotic features: This is a 59-year-old white male with a long history of bipolar disorder who presents with alexsander amaya on a 21-day hold. 1. Continue current medications. 2. Encourage individual, group and milieu therapy. 3. Continue to 15-minute checks for safety. Status: Acute Code(s): F31.9 - Bipolar disorder, unspecified (2) Acute psychosis: Status: Acute Code(s): F23 - Brief psychotic disorder Involuntary Hold Information 96 Hour Hold: 96 Hour Involuntary Admission: Yes 96 Hour Hold Ending Date: 06/14/19 96 Hour Hold Ending Time: 16:30 21 Day Hold: 21 Day Hold Start Date: 06/14/19 21 Day Hold Start Time: 14:32 21 Day Hold End Date: 07/06/19 21 Day Hold End Time: 14:32 Attestations NPU Medical Necessity Statement*: Inpatient hospitalization is medically necessary and the clinically appropriate intervention at this time. We will adjust and add medications as indicated. Likely length of stay 5 to 7 days. Coding Level of Care Code Acute Patent Law Specialist for g Fwd Diagnoses Bipolar I disorder with mood-congruent psychotic features F31.9 Acute psychosis F23
[2019-06-18 22:00] VITALS: BP 134/86; PULSE 70; RESP 19; TEMP 36.3; O2SAT 93
[2019-06-18] MEDS: gabapentin 300 mg Capsule 600 MG PO (22:23)
[2019-06-18] MEDS: OLANZapine ODT 5 MG TABLET PO (22:23)
[2019-06-19] MEDS: hydroCHLOROthiazide 25 mg Tablet PO (08:34)
[2019-06-19] MEDS: amlodipine 10 mg Tablet PO (08:34)
[2019-06-19] MEDS: ziprasidone hcl 40 mg Capsule 80 MG PO (08:35)
[2019-06-19] MEDS: metoprolol tartrate 25 mg Tablet PO ×2 (08:35→17:34)
[2019-06-19] MEDS: hyDRALAzine 25 mg Tablet 50 MG PO ×3 (08:37→21:29)
[2019-06-19] MEDS: ziprasidone hcl 20 mg Capsule PO ×2 (08:37→21:28)
[2019-06-19] MEDS: albuterol 8 gm MDI 2 PUFF INHALATION (09:49)
[2019-06-19 09:56] VITALS: PULSE 84; RESP 18; O2SAT 97
[2019-06-19 09:58] VITALS: PULSE 87
--- NOTE | 2019-06-19 12:58 | P.PN_ITS ---
Subjective NPU Subjective: Interval history: Ced presents today much as he has in the previous days. He is a little less volatile, a little less intrusive, but continues to have grandiose stories and presentations about who he is and his importance overall, but again a little more interactive and less aggressive in his tone. He ultimately took his breathing treatment after a mild verbal wrestl ing match. As much as he is draining a lot of time and energy, his perception is that he is not getting any attention, and no one is caring or focused on him. He has continued the arguments and reports that his is basically deserting him, and it has been a waste of 35 years. Every time he has a conversation the amount of years that it has been increases. He continues to take issue with this marketing copywriter wearing a protective mask, no matter how many times I explained the purpose of me wearing it. Mental Status Exam MSE Comments: This is an overweight, older, white male, with adequate dress, grooming, and eye contact. No abnormal movements except for slightly improving psychomotor agitation. More cooperative with exam in no mild to moderate but improving distress. Speech was increased rate and volume but somewhat less pressured. Mood described as fine; affect still elevated. Thought process, disorganized to some degree. Thought content: patient denied any suicidal or homicidal ideation, but he continues to have some aggressive posturing. There were no delusions reported but clear grandiosity still remains. He denied any auditory or visual hallucinations. Attention and concentration were improving, and memory is unreliable, but none were formally tested. Alert and oriented to person and place. Insight and judgment are impaired. Vitals/I&O/Wt Last Vital Signs Temp 97.9 F 06/19/19 22:00 Pulse 77 06/20/19 02:05 Resp 20 H 06/20/19 02:05 BP 132/83 06/19/19 22:00 Pulse Ox 98 06/20/19 02:05 Home Medications No Known Home Medications 06/08/19 [History Confirmed 06/08/19] Active Medications Acetaminophen (Tylenol) 650 mg PO Q4H PRN PRN Reason: MILD PAIN Last Admin: 06/20/19 04:48 Dose: 650 mg Documented by: Albuterol Sulfate (Ventolin) 2 puff INHALATION Q4H.RESPIRATORY PRN PRN Reason: SHORTNESS OF BREATH Last Admin: 06/20/19 02:04 Dose: 2 puff Documented by: Amlodipine Besylate (Norvasc) 10 mg PO DAILY [facility] Last Admin: 06/19/19 08:34 Dose: 10 mg Documented by: Benztropine Mesylate (Cogentin) 1 mg PO BID PRN PRN Reason: Mild Extrapyramidal symptoms Camphor/Menthol/Phenol (Blistex) 1 applic TOPICAL Q1H PRN PRN Reason: DRYNESS Clonidine HCl (Catapres) 0.1 mg PO Q12H PRN PRN Reason: SBP >160 Last Admin: 06/17/19 21:57 Dose: 0.1 mg Documented by: Clonidine HCl (Catapres) 0.1 mg PO Q4H PRN PRN Reason: DIASTOLIC BLOOD PRESSURE Diphenhydramine HCl (Benadryl) 50 mg IM ONCE PRN PRN Reason: Severe Extrapyramidal Symptoms Last Admin: 06/14/19 06:32 Dose: 50 mg Documented by: Diphenhydramine HCl (Benadryl) 50 mg IM Q4H PRN PRN Reason: Severe Aggression Divalproex Sodium (Depakote Dr) 500 mg PO BID [facility] Last Admin: 06/19/19 17:35 Dose: Not Given Documented by: Doxepin HCl (Sinequan) 50 mg PO BEDTIME PRN PRN Reason: insomnia Last Admin: 06/19/19 21:28 Dose: 50 mg Documented by: Gabapentin (Neurontin) 600 mg PO BEDTIME [facility] Last Admin: 06/19/19 21:27 Dose: 600 mg Documented by: Haloperidol Lactate (Haldol Inj) 5 mg IM Q4H PRN PRN Reason: Severe Aggression Last Admin: 06/14/19 06:30 Dose: 5 mg Documented by: Hydralazine HCl (Apresoline) 50 mg PO TID [facility] Last Admin: 06/19/19 21:29 Dose: 50 mg Documented by: Hydrochlorothiazide (Hctz) 25 mg PO DAILY [facility] Last Admin: 06/19/19 08:34 Dose: 25 mg Documented by: Loperamide HCl (Imodium Capsule) 2 mg PO Q6H PRN PRN Reason: DIARRHEA Lorazepam (Ativan) 2 mg IM Q4H PRN PRN Reason: SEVERE AGGRESSION Metoprolol Tartrate (Lopressor) 25 mg PO BID [facility] Last Admin: 06/19/19 17:34 Dose: 25 mg Documented by: Nicotine (Nicoderm 21 Mg Patch) 1 patch TRANSDERMA DAILY PRN PRN Reason: NICOTINE WITHDRAWAL Nicotine Polacrilex (Nicorette) 2 mg BUCCAL Q2H PRN PRN Reason: NICOTINE WITHDRAWAL Last Admin: 06/10/19 16:52 Dose: 2 mg Documented by: Olanzapine (Zyprexa Zydis) 5 mg PO Q4H PRN PRN Reason: Agitation/Psychosis Last Admin: 06/17/19 00:31 Dose: 5 mg Documented by: Olanzapine (Zyprexa Zydis) 5 mg PO BEDTIME [facility] Last Admin: 06/19/19 21:28 Dose: 5 mg Documented by: Ondansetron HCl (Zofran) 4 mg PO Q6H PRN PRN Reason: NAUSEA AND VOMITING Ziprasidone (Geodon) 20 mg PO Q4H PRN PRN Reason: AGITATION Last Admin: 06/19/19 21:28 Dose: 20 mg Documented by: Ziprasidone (Geodon) 80 mg PO DAILY [facility] Last Admin: 06/19/19 08:35 Dose: 80 mg Documented by: Ziprasidone (Geodon) 20 mg PO 0700 [facility] Last Admin: 06/20/19 05:53 Dose: 20 mg Documented by: Ziprasidone (Geodon) 20 mg IM BID PRN PRN Reason: AGITATION Data NPU : 06/08/19 18:43 06/08/19 18:43 A&P Additional A&P Information (1) Bipolar I disorder with mood-congruent psychotic features: This is a 59-year-old white male with a long history of bipolar disorder who presents with alexsander amaya on a 21-day hold. 1. Continue current medications. 2. Encourage individual, group and milieu therapy. 3. Continue to 15-minute checks for safety. (2) Acute psychosis: Involuntary Hold Information 96 Hour Hold: 96 Hour Involuntary Admission: Yes 96 Hour Hold Ending Date: 06/14/19 96 Hour Hold Ending Time: 16:30 21 Day Hold: 21 Day Hold Start Date: 06/14/19 21 Day Hold Start Time: 14:32 21 Day Hold End Date: 07/06/19 21 Day Hold End Time: 14:32 Attestations NPU Medical Necessity Statement*: Inpatient hospitalization is medically necessary and the clinically appropriate intervention at this time. We will adjust and add medications as indicated. Likely length of stay 5 to 7 days. Coding Level of Care Code Acute Process Project Engineer for Jhonatan Bajwa
[2019-06-19 14:00] VITALS: RESP 18
[2019-06-19] MEDS: gabapentin 300 mg Capsule 600 MG PO (21:27)
[2019-06-19] MEDS: OLANZapine ODT 5 MG TABLET PO (21:28)
[2019-06-19] MEDS: doxepin 50 mg Capsule PO (21:28)
--- NOTE | 2019-06-19 21:29 | PC.NURSE ---
PT GIVEN HS MEDS GABAPENTIN, HYDRALAZINE, AND ZYPREXA WELL GEODON AND DOXEPIN AT THIS TIME.
[2019-06-19 22:00] VITALS: BP 132/83; PULSE 67; RESP 20; TEMP 36.6; O2SAT 100
[2019-06-20] VITALS (7 sets, daily range): BP systolic 139–182; BP diastolic 96–106; PULSE 72–77; RESP 18–24; TEMP 36.6–36.7; O2SAT 95–98
[2019-06-20] MEDS: albuterol 8 gm MDI 2 PUFF INHALATION ×3 (02:04→17:33)
[2019-06-20] MEDS: acetaminophen 325 mg Tablet 650 MG PO (04:48)
[2019-06-20] MEDS: ziprasidone hcl 20 mg Capsule PO ×2 (05:53→19:46)
[2019-06-20] MEDS: divalproex DR 500 mg Tablet PO ×2 (11:46→17:18)
[2019-06-20] MEDS: hyDRALAzine 25 mg Tablet 50 MG PO ×3 (11:47→19:46)
[2019-06-20] MEDS: amlodipine 10 mg Tablet PO (11:47)
[2019-06-20] MEDS: ziprasidone hcl 40 mg Capsule 80 MG PO (11:47)
[2019-06-20] MEDS: metoprolol tartrate 25 mg Tablet PO ×2 (11:48→17:18)
[2019-06-20] MEDS: hydroCHLOROthiazide 25 mg Tablet PO (11:48)
[2019-06-20] MEDS: OLANZapine ODT 5 MG TABLET PO ×2 (14:09→19:47)
--- NOTE | 2019-06-20 14:09 | PC.NURSE ---
PRN ZYPREXA ZYDIS ZYPREXA ZYDIS 5MG PO FOR AGITATION/PSYCHOSIS. PATIENT IN ROOM YELLING AND SLAMMING THINGS AROUND BECAUSE STAFF DID A ROOM SEARCH AND TOOK MARKERS AND TRASH PATIENT HAD IN HIS ROOM. WILL CONTINUE TO MONITOR FOR MEDICATION EFFECTIVENESS.
--- NOTE | 2019-06-20 15:00 | PC.NURSE ---
PRN ZYPREXA ZYDIS FOLLOW UP MEDICATION EFFECTIVE. PATIENT LYING IN BED RESTING. RESPIRATIONS EVEN AND UNLABORED.
--- NOTE | 2019-06-20 17:42 | PM.NPN ---
Subjective NPU Subjective: Interval history: Ced presents today continuing to have his fits of irritability and aggression and desiring that things be done exactly his way, grandiose entitlement, and irritability. 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 We discussed a plan for increasing his morning dose of Geodon and the likelihood of adding an injection for refusal in the morning as well. Mental Status Exam MSE Comments: This is an overweight, older, white male, with adequate dress, limited grooming, and adequate eye contact. No abnormal movements except for psychomotor agitation. Semi-cooperative with exam in mild to moderate distress. Speech was increased rate and volume. Mood described as fine if people would leave me alone; affect still elevated. Thought process, mostly organized. Thought content: patient denied any suicidal or homicidal ideation with continued aggressive posturing, there were no delusions reported but continued grandiosity and persecutory delusions exist. He denied any auditory or visual hallucinations. Attention and concentration were intermittently intact and memory unreliable, but none were formally tested. Alert and oriented to person and place. Insight and judgment are impaired. Vitals/I&O/Wt Last Vital Signs Temperature 98.1, pulse 73, respirations 22, pulse ox 96%, blood pressure 139/96. Home Medications No Known Home Medications 06/08/19 [History Confirmed 06/08/19] Active Medications Acetaminophen (Tylenol) 650 mg PO Q4H PRN PRN Reason: MILD PAIN Last Admin: 06/20/19 04:48 Dose: 650 mg Documented by: Albuterol Sulfate (Ventolin) 2 puff INHALATION Q4H.RESPIRATORY PRN PRN Reason: SHORTNESS OF BREATH Last Admin: 06/20/19 17:33 Dose: 2 puff Documented by: Amlodipine Besylate (Norvasc) 10 mg PO DAILY EDGARDO Last Admin: 06/20/19 11:47 Dose: 10 mg Documented by: Benztropine Mesylate (Cogentin) 1 mg PO BID PRN PRN Reason: Mild Extrapyramidal symptoms Camphor/Menthol/Phenol (Blistex) 1 applic TOPICAL Q1H PRN PRN Reason: DRYNESS Clonidine HCl (Catapres) 0.1 mg PO Q12H PRN PRN Reason: SBP >160 Last Admin: 06/17/19 21:57 Dose: 0.1 mg Documented by: Clonidine HCl (Catapres) 0.1 mg PO Q4H PRN PRN Reason: DIASTOLIC BLOOD PRESSURE Last Admin: 06/20/19 19:48 Dose: 0.1 mg Documented by: Diphenhydramine HCl (Benadryl) 50 mg IM ONCE PRN PRN Reason: Severe Extrapyramidal Symptoms Last Admin: 06/14/19 06:32 Dose: 50 mg Documented by: Diphenhydramine HCl (Benadryl) 50 mg IM Q4H PRN PRN Reason: Severe Aggression Divalproex Sodium (Depakote Dr) 500 mg PO BID [facility] Last Admin: 06/20/19 17:18 Dose: 500 mg Documented by: Doxepin HCl (Sinequan) 50 mg PO BEDTIME PRN PRN Reason: insomnia Last Admin: 06/20/19 19:46 Dose: 50 mg Documented by: Gabapentin (Neurontin) 600 mg PO BEDTIME [facility] Last Admin: 06/20/19 19:47 Dose: 600 mg Documented by: Haloperidol Lactate (Haldol Inj) 5 mg IM Q4H PRN PRN Reason: Severe Aggression Last Admin: 06/14/19 06:30 Dose: 5 mg Documented by: Hydralazine HCl (Apresoline) 50 mg PO TID [facility] Last Admin: 06/20/19 19:46 Dose: 50 mg Documented by: Hydrochlorothiazide (Hctz) 25 mg PO DAILY [facility] Last Admin: 06/20/19 11:48 Dose: 25 mg Documented by: Loperamide HCl (Imodium Capsule) 2 mg PO Q6H PRN PRN Reason: DIARRHEA Lorazepam (Ativan) 2 mg IM Q4H PRN PRN Reason: SEVERE AGGRESSION Metoprolol Tartrate (Lopressor) 25 mg PO BID [facility] Last Admin: 06/20/19 17:18 Dose: 25 mg Documented by: Nicotine (Nicoderm 21 Mg Patch) 1 patch TRANSDERMA DAILY PRN PRN Reason: NICOTINE WITHDRAWAL Nicotine Polacrilex (Nicorette) 2 mg BUCCAL Q2H PRN PRN Reason: NICOTINE WITHDRAWAL Last Admin: 06/10/19 16:52 Dose: 2 mg Documented by: Olanzapine (Zyprexa Zydis) 5 mg PO Q4H PRN PRN Reason: Agitation/Psychosis Last Admin: 06/20/19 14:09 Dose: 5 mg Documented by: Olanzapine (Zyprexa Zydis) 5 mg PO BEDTIME EDGARDO Last Admin: 06/20/19 19:47 Dose: 5 mg Documented by: Ondansetron HCl (Zofran) 4 mg PO Q6H PRN PRN Reason: NAUSEA AND VOMITING Ziprasidone (Geodon) 20 mg PO Q4H PRN PRN Reason: AGITATION Last Admin: 06/20/19 19:46 Dose: 20 mg Documented by: Ziprasidone (Geodon) 80 mg PO DAILY EDGARDO Last Admin: 06/20/19 11:47 Dose: 80 mg Documented by: Ziprasidone (Geodon) 20 mg PO 0700 [facility] Last Admin: 06/21/19 06:11 Dose: 20 mg Documented by: Ziprasidone (Geodon) 20 mg IM BID PRN PRN Reason: AGITATION Data NPU : 06/08/19 18:43 06/08/19 18:43 A&P Additional A&P Information (1) Bipolar I disorder with mood-congruent psychotic features: This is a 59-year-old white male with a long history of bipolar disorder who presents with alexsander amaya on a 21-day hold. 1. Continue current medications.Except increase Geodon morning dose and have injection for morning refusal of medication. 2. Encourage individual, group and milieu therapy. 3. Continue to 15-minute checks for safety. (2) Acute psychosis: Involuntary Hold Information 96 Hour Hold: 96 Hour Involuntary Admission: Yes 96 Hour Hold Ending Date: 06/14/19 96 Hour Hold Ending Time: 16:30 21 Day Hold: 21 Day Hold Start Date: 06/14/19 21 Day Hold Start Time: 14:32 21 Day Hold End Date: 07/06/19 21 Day Hold End Time: 14:32 Attestations NPU Medical Necessity Statement*: Inpatient hospitalization is medically necessary and the clinically appropriate intervention at this time. We will adjust and add medications as indicated. Likely length of stay 5 to 7 days. Coding Level of Care Code Acute Sheep Killer for Jhonatan Bajwa
[2019-06-20] MEDS: doxepin 50 mg Capsule PO (19:46)
[2019-06-20] MEDS: gabapentin 300 mg Capsule 600 MG PO (19:47)
--- NOTE | 2019-06-20 19:47 | PC.NURSE ---
PT THROWING A TEMPER TANTRUM BECAUSE STAFF CONDUCTED A ROOM SEARCH DURING VITAL SIGNS. DR LEO AT BEDSIDE. SECURITY CALLED. HS MEDS GABAPENTIN, APRESOLINE, AND ZYREXA AND PRN MEDS GEODON, CLONODINE, AND DOXEPIN GIVEN AT THIS TIME. DR LEO DIRECTED STAFF TO NOT HESITATE TO GIVEN PT IM GEODON IF NEEDED. PT TOOK PO MEDS WITHOUT DIFFICULTY WITH STAFF, SECURITY AND DR AT BEDSIDE.
[2019-06-20] MEDS: cloNIDine 0.1 mg Tablet PO (19:48)
[2019-06-21 06:00] VITALS: BP 143/97; PULSE 70; RESP 21; TEMP 36.4; O2SAT 94
[2019-06-21] MEDS: ziprasidone hcl 20 mg Capsule PO ×2 (06:11→20:39)
--- NOTE | 2019-06-21 06:36 | PC.NURSE ---
Pt has slept well this night. Was up until around 10pm, then went to bed, not getting up until 0630 this am. Pt stated he slept so good, he is able to balance. Pt then stood at the desk raising one knee to his chin, then the other. Pt continues to ramble on and on.
--- NOTE | 2019-06-21 06:59 | PC.NURSE ---
Pt is in the dayroom yelling and bad mouthing another pt. pt went into dayroom rambling about how he was given coffee with creamer, and he doesn't like creamer. Pt refused to give the the coffee back to the staff so it could be replaced with a fresh cup. Other pt tried to get this Staff went to dayroom to attempt calm the pt by removing him to his room. Pt in room ranting and raving.
[2019-06-21] MEDS: ziprasidone hcl 20 mg Capsule 40 MG PO (09:33)
[2019-06-21] MEDS: metoprolol tartrate 25 mg Tablet PO ×2 (09:34→17:56)
[2019-06-21] MEDS: hydroCHLOROthiazide 25 mg Tablet PO (09:34)
[2019-06-21] MEDS: divalproex DR 500 mg Tablet PO ×2 (09:34→17:56)
[2019-06-21] MEDS: hyDRALAzine 25 mg Tablet 50 MG PO ×3 (09:35→20:38)
[2019-06-21] MEDS: amlodipine 10 mg Tablet PO (09:35)
[2019-06-21] MEDS: ziprasidone hcl 40 mg Capsule 80 MG PO (10:53)
--- NOTE | 2019-06-21 13:49 | P.PN_ITS ---
Subjective NPU Subjective: Interval history: Ced presents today continuing to have his outbursts occasionally, but they might be diminishing some. He still stays fairly irritable and angry about any interactions and taking up his ?stuff?. He certainly has some hoarding type behaviors; saving spoons and cups and empty milk cartons that we end up going in and taking out of his room, and then that gets him really frustrated, and he then claims other things were taken that were never there. He continues to feel that he does not need to be here but, ultimately, will follow through with recommendations that this engineering writer makes. We endorsed a plan to continue to titrate the morning Geodon dose, to effect. We may need to stop and consider Invega if we do not get a more robust response. Medications: Reviewed: Yes Mental Status Exam MSE Comments: This is an overweight, older, white male, with adequate dress, and limited grooming and eye contact. No abnormal movements, except for psychomotor agitation. Semi-cooperative with exam in no acute distress. Speech was increased rate and volume. Mood described as fine; affect irritable. Thought process, mostly organized. Thought content: patient denied any suicidal or homicidal ideation, there were no delusions reported but clear grandiosity and persecutory delusions exist, he denied any auditory or visual hallucinations. Attention and concentration are intact and memory is unreliable, but none were formally tested. He is alert and oriented times person and place. Insight and judgment are limited. Vitals/I&O/Wt Last Vital Signs Temperature 97.5 pulse 70, respirations 21, pulse ox 94, blood pressure 143/97. Data NPU : 06/08/19 18:43 06/08/19 18:43 A&P Additional A&P Information (1) Bipolar I disorder with mood-congruent psychotic features: This is a 59-year-old white male with a long history of bipolar disorder who presents with alexsander amaya on a 21-day hold. 1. Continue current medications.Except increase Geodon morning dose and have injection for morning refusal of medication. 2. Encourage individual, group and milieu therapy. 3. Continue to 15-minute checks for safety. (2) Acute psychosis: Involuntary Hold Information 96 Hour Hold: 96 Hour Involuntary Admission: Yes 96 Hour Hold Ending Date: 06/14/19 96 Hour Hold Ending Time: 16:30 21 Day Hold: 21 Day Hold Start Date: 06/14/19 21 Day Hold Start Time: 14:32 21 Day Hold End Date: 07/06/19 21 Day Hold End Time: 14:32 Attestations NPU Medical Necessity Statement*: Inpatient hospitalization is medically necessary and the clinically appropriate intervention at this time. We will adjust and add medications as indicated. Likely length of stay 5 to 7 days. Coding Level of Care Code Acute Real Estate Accountant for Jhonatan Bajwa
[2019-06-21 14:00] VITALS: BP 148/71; PULSE 72; RESP 16; TEMP 37.1
[2019-06-21] MEDS: gabapentin 300 mg Capsule 600 MG PO (20:38)
[2019-06-21] MEDS: doxepin 50 mg Capsule PO (20:39)
[2019-06-21] MEDS: OLANZapine ODT 5 MG TABLET PO (20:40)
[2019-06-21 20:48] VITALS: BP 124/73; PULSE 73; RESP 22; O2SAT 93
--- NOTE | 2019-06-21 21:12 | PC.NURSE ---
Pt has been resting quietly thus far this night without any out bursts. HS meds Gabapentin, Zyprexa, Apresoline as well as PRN Doxepin and Geodon given at 2037 without difficulty. Pt continues to rest quietly at this time.
[2019-06-22 06:00] VITALS: BP 116/72; PULSE 72; RESP 21; TEMP 36.7; O2SAT 98
[2019-06-22] MEDS: ziprasidone hcl 20 mg Capsule 40 MG PO (06:05)
[2019-06-22] MEDS: metoprolol tartrate 25 mg Tablet PO ×2 (08:10→17:41)
[2019-06-22] MEDS: hyDRALAzine 25 mg Tablet 50 MG PO ×3 (08:10→20:50)
[2019-06-22] MEDS: amlodipine 10 mg Tablet PO (08:11)
[2019-06-22] MEDS: ziprasidone hcl 40 mg Capsule 80 MG PO (08:11)
[2019-06-22] MEDS: divalproex DR 500 mg Tablet PO ×2 (08:13→17:41)
[2019-06-22] MEDS: hydroCHLOROthiazide 25 mg Tablet PO (08:13)
--- NOTE | 2019-06-22 13:53 | PM.NPN ---
Subjective NPU Subjective: Interval history: Ced presents today reporting that he is upset because he is alone. He endorses that he has a daughter who got and changed her last name, and he has no idea where she is. So, that really frustrates him. 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 He reports that he is doing fine otherwise. Mental Status Exam MSE Comments: This is a well-nourished, well-developed, white male, with adequate dress and grooming, and limited eye contact. No abnormal movements, except for mild psychomotor agitation. Cooperative with exam in mild to moderate distress. Speech was decreased rate and volume. Mood described as sad; affect congruent and occasionally tearful. Thought process, organized. Thought content: patient denied any suicidal or homicidal ideation, there were no delusions reported or noted, patient denied any auditory or visual hallucinations. Attention, concentration, and memory appeared intact but were not formally tested. Patient is alert and oriented times two. Insight and judgment are limited/impaired. Vitals/I&O/Wt Last Vital Signs Temp 98.3 F 06/22/19 20:15 Pulse 68 06/22/19 20:15 Resp 19 H 06/22/19 20:15 BP 143/90 06/22/19 20:15 Pulse Ox 98 06/22/19 20:15 Data NPU : 06/08/19 18:43 06/08/19 18:43 A&P Additional A&P Information (1) Bipolar I disorder with mood-congruent psychotic features: This is a 59-year-old white male with a long history of bipolar disorder who presents with alexsander amaya on a 21-day hold. 1. Continue current medications. 2. Encourage individual, group and milieu therapy. 3. Continue to 15-minute checks for safety. (2) Acute psychosis: Involuntary Hold Information 96 Hour Hold: 96 Hour Involuntary Admission: Yes 96 Hour Hold Ending Date: 06/14/19 96 Hour Hold Ending Time: 16:30 21 Day Hold: 21 Day Hold Start Date: 06/14/19 21 Day Hold Start Time: 14:32 21 Day Hold End Date: 07/06/19 21 Day Hold End Time: 14:32 Attestations NPU Medical Necessity Statement*: Inpatient hospitalization is medically necessary and the clinically appropriate intervention at this time. We will adjust and add medications as indicated. Likely length of stay 5 to 7 days. Coding Level of Care Code Acute Drafter Refrigeration for Jhonatan Bajwa
[2019-06-22 14:00] VITALS: BP 117/76; PULSE 64; RESP 18; TEMP 36.9; O2SAT 96
[2019-06-22 20:15] VITALS: BP 143/90; PULSE 68; RESP 19; TEMP 36.8; O2SAT 98
[2019-06-22] MEDS: gabapentin 300 mg Capsule 600 MG PO (20:50)
[2019-06-22] MEDS: doxepin 50 mg Capsule PO (20:50)
[2019-06-22] MEDS: OLANZapine ODT 5 MG TABLET PO (20:50)
[2019-06-23 06:42] VITALS: BP 150/90; PULSE 66; RESP 18; TEMP 36.8; O2SAT 98
[2019-06-23] MEDS: ziprasidone hcl 60 mg Capsule PO (06:58)
[2019-06-23] MEDS: hyDRALAzine 25 mg Tablet 50 MG PO ×2 (08:12→20:09)
[2019-06-23] MEDS: ziprasidone hcl 40 mg Capsule 80 MG PO (08:13)
[2019-06-23] MEDS: divalproex DR 500 mg Tablet PO ×2 (08:13→16:51)
[2019-06-23] MEDS: metoprolol tartrate 25 mg Tablet PO ×2 (08:14→16:51)
[2019-06-23] MEDS: hydroCHLOROthiazide 25 mg Tablet PO (08:14)
[2019-06-23] MEDS: amlodipine 10 mg Tablet PO (08:15)
[2019-06-23] MEDS: acetaminophen 325 mg Tablet 650 MG PO ×2 (08:56→20:10)
[2019-06-23] MEDS: albuterol 8 gm MDI 2 PUFF INHALATION ×2 (10:55→22:45)
[2019-06-23 10:56] VITALS: PULSE 64; RESP 16; O2SAT 93
--- NOTE | 2019-06-23 11:25 | PC.NURSE ---
PATIENT C/O DISCOMFORT IN HIS RIGHT INGUINAL AREA. ASSESSED AREA BY PALPATION. AREA HAS PALPABLE BUDGE WITH REPEATABILITY. PATIENT STATED THAT HE BEGAN TO FEEL DISCOMFORT AFTER MOVING A CHAIR IN DAY ROOM. NOTIFIED DR. LEO.
[2019-06-23 14:42] VITALS: BP 97/62; PULSE 57
--- NOTE | 2019-06-23 15:14 | PM.NPN ---
Subjective NPU Subjective: Interval history: The patient presents today reporting that he is feeling a little under the weather and tired. He identified that his issue is that he feels like he might have a little hernia. We checked it and it does appear that there might be a hernia going on, on the right side of his inguinal area. We discussed possibility of getting a hospitalist consult to identify exactly what is going on. There is some concern that maybe the daytime dosing is making him too tired with the Geodon so the 140 mg total in a 60 in the morning, 80 at night, we discussed changing it to 40 to 100 and see if that is not better. We discussed the risks, benefits and alternatives of making the change and he understood and agreed to proceed as is documented in this note. Mental Status Exam MSE Comments: This is an overweight, older, white male, with poor dentition, with adequate dress, grooming, and eye contact. No abnormal movements except for psychomotor retardation. Cooperative with exam in no acute distress. Speech was decreased rate and volume. Mood described as tired and hurt; affect congruent. Thought process, organized. Thought content: patient denied any suicidal or homicidal ideation, there were no delusions reported or noted, patient denied any auditory or visual hallucinations. Attention, concentration, and memory appeared intact but were not formally tested. Alert and oriented times three. Insight and judgment are limited. Vitals/I&O/Wt Last Vital Signs Temp 98.2 F 06/23/19 06:42 Pulse 57 L 06/23/19 14:42 Resp 16 06/23/19 10:56 BP 97/62 06/23/19 14:42 Pulse Ox 93 06/23/19 10:56 Home Medications No Known Home Medications 06/08/19 [History Confirmed 06/08/19] Active Medications Acetaminophen (Tylenol) 650 mg PO Q4H PRN PRN Reason: MILD PAIN Last Admin: 06/23/19 08:56 Dose: 650 mg Documented by: Albuterol Sulfate (Ventolin) 2 puff INHALATION Q4H.RESPIRATORY PRN PRN Reason: SHORTNESS OF BREATH Last Admin: 06/23/19 10:55 Dose: 2 puff Documented by: Amlodipine Besylate (Norvasc) 10 mg PO DAILY EDGARDO Last Admin: 06/23/19 08:15 Dose: 10 mg Documented by: Benztropine Mesylate (Cogentin) 1 mg PO BID PRN PRN Reason: Mild Extrapyramidal symptoms Camphor/Menthol/Phenol (Blistex) 1 applic TOPICAL Q1H PRN PRN Reason: DRYNESS Clonidine HCl (Catapres) 0.1 mg PO Q12H PRN PRN Reason: SBP >160 Last Admin: 06/17/19 21:57 Dose: 0.1 mg Documented by: Clonidine HCl (Catapres) 0.1 mg PO Q4H PRN PRN Reason: DIASTOLIC BLOOD PRESSURE Last Admin: 06/20/19 19:48 Dose: 0.1 mg Documented by: Diphenhydramine HCl (Benadryl) 50 mg IM ONCE PRN PRN Reason: Severe Extrapyramidal Symptoms Last Admin: 06/14/19 06:32 Dose: 50 mg Documented by: Diphenhydramine HCl (Benadryl) 50 mg IM Q4H PRN PRN Reason: Severe Aggression Divalproex Sodium (Depakote Dr) 500 mg PO BID [facility] Last Admin: 06/23/19 08:13 Dose: 500 mg Documented by: Doxepin HCl (Sinequan) 50 mg PO BEDTIME PRN PRN Reason: insomnia Last Admin: 06/22/19 20:50 Dose: 50 mg Documented by: Gabapentin (Neurontin) 600 mg PO BEDTIME [facility] Last Admin: 06/22/19 20:50 Dose: 600 mg Documented by: Haloperidol Lactate (Haldol Inj) 5 mg IM Q4H PRN PRN Reason: Severe Aggression Last Admin: 06/14/19 06:30 Dose: 5 mg Documented by: Hydralazine HCl (Apresoline) 50 mg PO TID [facility] Last Admin: 06/23/19 14:43 Dose: Not Given Documented by: Hydrochlorothiazide (Hctz) 25 mg PO DAILY [facility] Last Admin: 06/23/19 08:14 Dose: 25 mg Documented by: Loperamide HCl (Imodium Capsule) 2 mg PO Q6H PRN PRN Reason: DIARRHEA Metoprolol Tartrate (Lopressor) 25 mg PO BID [facility] Last Admin: 06/23/19 08:14 Dose: 25 mg Documented by: Nicotine (Nicoderm 21 Mg Patch) 1 patch TRANSDERMA DAILY PRN PRN Reason: NICOTINE WITHDRAWAL Nicotine Polacrilex (Nicorette) 2 mg BUCCAL Q2H PRN PRN Reason: NICOTINE WITHDRAWAL Last Admin: 06/10/19 16:52 Dose: 2 mg Documented by: Olanzapine (Zyprexa Zydis) 5 mg PO Q4H PRN PRN Reason: Agitation/Psychosis Last Admin: 06/20/19 14:09 Dose: 5 mg Documented by: Olanzapine (Zyprexa Zydis) 5 mg PO BEDTIME [facility] Last Admin: 06/22/19 20:50 Dose: 5 mg Documented by: Ondansetron HCl (Zofran) 4 mg PO Q6H PRN PRN Reason: NAUSEA AND VOMITING Ziprasidone (Geodon) 20 mg PO Q4H PRN PRN Reason: AGITATION Last Admin: 06/21/19 20:39 Dose: 20 mg Documented by: Ziprasidone (Geodon) 80 mg PO DAILY [facility] Last Admin: 06/23/19 08:13 Dose: 80 mg Documented by: Ziprasidone (Geodon) 20 mg IM BID PRN PRN Reason: AGITATION Ziprasidone (Geodon) 60 mg PO 0700 [facility] Last Admin: 06/23/19 06:58 Dose: 60 mg Documented by: Data NPU : 06/24/19 17:45 06/24/19 17:45 A&P Additional A&P Information (1) Bipolar I disorder with mood-congruent psychotic features: This is a 59-year-old white male with a long history of bipolar disorder who presents with alexsander amaya on a 21-day hold. 1. Continue current medications. 2. Encourage individual, group and milieu therapy. 3. Continue to 15-minute checks for safety. 4. Switch Geodon to 40mg po qam and 100mg po qhs to see if that doesn't assist his sleep wake cycle (2) Acute psychosis: Involuntary Hold Information 96 Hour Hold: 96 Hour Involuntary Admission: Yes 96 Hour Hold Ending Date: 06/14/19 96 Hour Hold Ending Time: 16:30 21 Day Hold: 21 Day Hold Start Date: 06/14/19 21 Day Hold Start Time: 14:32 21 Day Hold End Date: 07/06/19 21 Day Hold End Time: 14:32 Attestations NPU Medical Necessity Statement*: Inpatient hospitalization is medically necessary and the clinically appropriate intervention at this time. We will adjust and add medications as indicated. Likely length of stay 5 to 7 days. Coding Level of Care Code Acute Weir Fisher for Chg Fwd
[2019-06-23] MEDS: ziprasidone hcl 20 mg Capsule PO (20:09)
[2019-06-23] MEDS: doxepin 50 mg Capsule PO (20:09)
[2019-06-23] MEDS: gabapentin 300 mg Capsule 600 MG PO (20:09)
[2019-06-23] MEDS: lurasidone 20 mg Tablet 40 MG PO (20:10)
[2019-06-23] MEDS: OLANZapine ODT 5 MG TABLET PO (20:10)
--- NOTE | 2019-06-23 20:32 | PC.NURSE ---
PRN DOXEPIN & GEODON PT HAS BEEN AT THE WINDOW GETTING VERY AGITATED, ADMINISTERED GEODON 20 MG, PT REQUESTING SLEEP AID. DOXEPIN 50 MG ADMINISTERED. WILL MONITOR FOR MEDICATION EFFECTIVENESS.
[2019-06-23 21:05] VITALS: BP 143/91; PULSE 70; RESP 18; TEMP 36.8; O2SAT 90
[2019-06-23 22:45] VITALS: PULSE 72; RESP 18; O2SAT 94
[2019-06-23 22:50] VITALS: PULSE 73; O2SAT 93
[2019-06-24 06:00] VITALS: BP 89/46; PULSE 96; RESP 18; TEMP 36.4; O2SAT 97
[2019-06-24] MEDS: lurasidone 20 mg Tablet PO (07:56)
[2019-06-24] MEDS: divalproex DR 500 mg Tablet PO ×2 (07:56→17:48)
[2019-06-24] MEDS: hydroCHLOROthiazide 25 mg Tablet PO (07:57)
[2019-06-24] MEDS: hyDRALAzine 25 mg Tablet 50 MG PO (07:57)
[2019-06-24] MEDS: metoprolol tartrate 25 mg Tablet PO ×2 (07:57→17:48)
[2019-06-24] MEDS: amlodipine 10 mg Tablet PO (07:57)
[2019-06-24] MEDS: lurasidone 80 mg Tablet PO (07:57)
--- NOTE | 2019-06-24 13:36 | CT_ITS ---
WS: [id number] CT ABDOMEN AND PELVIS NONCONTRAST HISTORY: inguinal hernia TECHNIQUE: Imaging performed through the abdomen and pelvis. Coronal and sagittal reformats are submi tted. All CT scans at [facility] use at least one of these dose optimization techniques: automated exposure control; mA and/or kV adjustment per patient size (includes targeted exams where d ose is matched to clinical indication); or iterative reconstruction. DLP: 994.12 mGy.cm COMPARISON: None available. Lower thorax: 2 mm nodule LEFT lung base. Lungs are slightly hyperexpanded. Heart size is normal. No hiatal hernia. Liver: Normal, no mass or intrahepatic dilatation. Gallbladder: Mildly contracted gallbladder without adjacent inflammation. Pancreas: Fatty replacement of the pancreas. No mass. Spleen: Normal. Adrenal glands: Normal. Right kidney: Mild perinephric stranding around the RIGHT kidney. No obstruction. Left kidney: Mild perinephric stranding around the LEFT kidney. 1.5 cm exophytic cyst from the upper pole. Atherosclerosis aorta. Numerous small mesenteric lymph nodes scattered throughout the mesentery. There are additional retrop eritoneal lymph nodes. These lymph nodes are shotty and not significantly enlarged. GI tract: Mild diffuse fecal retention. There is extensive constipation in the RIGHT colon. The appen kitty is normal. No obstruction. Abdominal wall: Small umbilical hernia contains fat only. Pelvis: No free fluid. Urinary bladder is well distended. There is no adenopathy. Inguinal canals are patent bilaterally containing fat only. No herniation of bowel or strangulation. Osseous structures: Severe degenerative disc disease at L1-2. No fracture. No osteoblastic or osteoly tic bone disease. CT/CT abdomen pelvis wo con [id number] IMPRESSION: 1. Patent bilateral inguinal canals but no hernia. 2. Small umbilical hernia contains fat only. 3. Numerous small mesenteric and retroperitoneal lymph nodes. Probably reactiv e and may be related to mesenteric adenitis. Consider follow-up CT evaluation i n 3-4 months to confirm no enlarging lymph nodes. 4. Constipation. 5. Normal appendix. 6. Marked distention of the stomach with food products.
--- NOTE | 2019-06-24 13:38 | P.PN_ITS ---
Subjective Subjective: Interval history: Asked to see patient again today due to complaints pain over inguinal hernia site in R groin. Patient states he has had a ventral abdominal and right inguinal hernia for the past 2-3 years at least. normally he is able to reduce the inguinal hernia completely but over the past 2 days he states that he is unable to do so. He is also c/o new pain over this site. passing flatus. Last BM 2 days ago. No vomiting. No fever or chills. No changes in po intake. Medications: Reviewed: Yes Vitals/I&O/Wt Last Vital Signs Temp 97.5 F L 06/24/19 06:00 Pulse 96 06/24/19 06:00 Resp 18 06/24/19 06:00 BP 89/46 06/24/19 06:00 Pulse Ox 97 06/24/19 06:00 Physical Exam Narrative: EXAM NARRATIVE: GEN: Awake, alert and oriented, no acute distress CVS: S1S2 N RS: CTA B/L Abd: Soft, nt/nd , bs+, ventral abdominal hernia more prominent on attempting to sit up and standing and coughing. Completely reducible. No signs of incarceration or obstrcution. 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 Pt reports tenderness to palpation over right inguinal region. No Mcburney point tenderness Data : 06/08/19 18:43 06/08/19 18:43 A&P Assessment and plan (1) Inguinal hernia: Status: Acute (2) Ventral hernia: Status: Acute Additional A&P Information 1. Ventral abdominal hernia: completely reducible. No sisgns of incarceration or obstruction 2. Right inguinal hernia: Unable to appreciate swelling at this time, however patient reports discomfort to palpation over site. will obtain Ct abd/pelvis to r/o obstruction or incarcertaion. Clinically appears well. Will follow with results of CT. Attestations Medical Necessity Statement*: per admitting team Coding Level of Care Code Acute Dumpling Machine Operator for [facility] Fwd Diagnoses Inguinal hernia K40.90 Ventral hernia K43.9
[2019-06-24 13:40] VITALS: PULSE 74; RESP 18; O2SAT 94
[2019-06-24] MEDS: albuterol 8 gm MDI 2 PUFF INHALATION (13:40)
[2019-06-24 13:45] VITALS: PULSE 74
--- NOTE | 2019-06-24 13:47 | P.PN_ITS ---
Subjective NPU Subjective: Interval history: Ced presented today reporting that he was still having some pain in his groin area we are awaiting the consult and follow-up decision. He denies any sharp or overwhelming pain but it is annoying to him. He seems to be a little less activated. He seems a little less annoyed at this telegraphic typewriter installer wearing a mask and things like that. He continues to put forward stories of long stents in the and his sister getting over on the government with her service. He continues to lament on themes related to being alone and not having any things to look forward to. Mental Status Exam MSE Comments: This is an overweight, older, white male, with poor dentition, with adequate dress, grooming, and eye contact. No abnormal movements except for mild psychomotor agitation. Cooperative with exam in no acute distress. Speech was decreased rate and volume but verbose. Mood described as annoyed; affect congruent. Thought process, organized. Thought content: patient denied any suicidal or homicidal ideation, there were no delusions reported, but some grandiose thinking persists, patient denied any auditory or visual hallucinations. Attention, concentration appeared intact, but memory is unreliable, but were not formally tested. He is Alert and oriented times person and place. Insight and judgment are limited/impaired. Vitals/I&O/Wt Last Vital Signs Temperature 97.5, pulse 96, respirations 18, pulse ox 97%, blood pressure 89/46. Data NPU : 06/24/19 17:45 06/24/19 17:45 Micro: Microbiology 06/24/19 17:34 Chlamydia trachomatis (ANGELIQUE) - Final Urine Random Neisseria gonorrhoeae (ANGELIQUE) - Final Microbiology 06/24/19 17:34 Urine Random Chlamydia trachomatis (ANGELIQUE) - Final 06/24/19 17:34 Urine Random Neisseria gonorrhoeae (ANGELIQUE) - Final A&P Additional A&P Information (1) Bipolar I disorder with mood-congruent psychotic features: This is a 59-year-old white male with a long history of bipolar disorder who presents with alexsander amaya on a 21-day hold. 1. Continue current medications. 2. Encourage individual, group and milieu therapy. 3. Continue to 15-minute checks for safety. 4. Switch Geodon to 40mg po qam and 100mg po qhs to see if that doesn't assist his sleep wake cycle (2) Acute psychosis: Involuntary Hold Information 96 Hour Hold: 96 Hour Involuntary Admission: Yes 96 Hour Hold Ending Date: 06/14/19 96 Hour Hold Ending Time: 16:30 21 Day Hold: 21 Day Hold Start Date: 06/14/19 21 Day Hold Start Time: 14:32 21 Day Hold End Date: 07/06/19 21 Day Hold End Time: 14:32 Attestations NPU Medical Necessity Statement*: Inpatient hospitalization is medically necessary and the clinically appropriate intervention at this time. We will adjust and add medications as indicated. Likely length of stay 5 to 7 days. Coding Level of Care Code Acute Collections Professional for Jhonatan Bajwa
[2019-06-24 14:00] VITALS: BP 106/63; PULSE 68; RESP 18; TEMP 36.8; O2SAT 98
[2019-06-24] MEDS: hyDRALAzine 25 mg Tablet PO ×2 (14:22→20:40)
--- NOTE | 2019-06-24 14:43 | PC.NURSE ---
off floor to CT, accompanied by security & SPORTS CLERK Juanita
--- NOTE | 2019-06-24 14:56 | PC.NURSE ---
return to unit from CT
[2019-06-24 18:02] LABS: Basophils % 0.5 %; Eosinophils # 0.2 10^3/uL (0.0-0.8); Eosinophils % 3.1 %; Hematocrit 41.6 % (42.0-52.0); Hemoglobin 13.3 g/dL (11.7-16.6); Lymphocytes # 2.3 10^3/uL (0.8-4.8); Lymphocytes % 29.4 %; Mean Corpuscular Hemoglobin 30.9 pg (28.0-34.0); Mean Corpuscular Volume 96.7 fL (80-94); Mean Platelet Volume 10.9 fL (7.4-10.4); Monocytes # 0.7 10^3/uL (0.2-0.9); Monocytes % 9.2 %; Neutrophils # 4.5 10^3/uL (1.8-7.7); Neutrophils % 57.5 %; Nucleated Red Blood Cells % 0 %; Platelet Count 185 10^3/cmm (130-400); Red Cell Distribution Width 13.6 % (12.1-15.1); White Blood Count 7.8 10^3/uL (4.0-10.0)
[2019-06-24 18:39] LABS: Alanine Aminotransferase 14 U/L (0-41); Albumin Level 3.9 g/dL (3.5-5.2); Alkaline Phosphatase 92 IU/L (40-130); Anion Gap 14.2 (5-19); Aspartate Amino Transferase 11 U/L (0-40); Blood Urea Nitrogen 23 mg/dL (8-23); Calcium 9.4 mg/dL (8.5-10.5); Carbon Dioxide 29 mmol/L (22-29); Chloride 98 mmol/L (98-107); Globulin 3.3 g/dL (1.3-4.6); Glomerular Filtration Rate 76.2 mL/min (90-130); Glucose 145 mg/dL (65-115); Osmolality Calculated 283 mOsm/kg (285-295); Potassium 4.2 mmol/L (3.5-5.1); Sodium 137 mmol/L (136-145); Total Bilirubin 0.2 mg/dL (0.15-1.2); Total Protein 7.2 g/dL (6.6-8.7)
[2019-06-24 18:42] LABS: Rapid Plasma Reagin Syphilis Nonreactive (Nonreactive)
[2019-06-24 19:41] LABS: HIV 1 & 2 Antibody Non-Reactive (Non-Reactiv); HIV 1 & 2 Antigen Non-Reactive (Non-Reactiv)
[2019-06-24 20:37] LABS: Hepatitis A Antibody IgM. Non-Reactive (Nonreactive); Hepatitis B Surface AB. 3.5 (0-8.5); Hepatitis B Surface Antigen. Non-Reactive (Nonreactive); Hepatitis C Virus Antibody Non-Reactive (Nonreactive)
[2019-06-24] MEDS: gabapentin 300 mg Capsule 600 MG PO (20:39)
[2019-06-24] MEDS: doxepin 50 mg Capsule PO (20:40)
[2019-06-24] MEDS: lurasidone 20 mg Tablet 40 MG PO (20:40)
[2019-06-24] MEDS: OLANZapine ODT 5 MG TABLET PO (20:41)
[2019-06-24 21:39] VITALS: BP 150/86; PULSE 71; RESP 19; TEMP 36.5; O2SAT 97
--- NOTE | 2019-06-25 00:15 | PC.NURSE ---
pt medicated with doxepin 50mgs po at 2039 for c/o difficulty sleeping. Has been sleeping at intervals since prn given. Respirations evena and unlabored
[2019-06-25 06:00] VITALS: RESP 17
[2019-06-25] MEDS: amlodipine 10 mg Tablet PO (08:43)
[2019-06-25] MEDS: hyDRALAzine 25 mg Tablet PO ×3 (08:43→20:33)
[2019-06-25] MEDS: metoprolol tartrate 25 mg Tablet PO ×2 (08:43→17:29)
[2019-06-25] MEDS: lurasidone 80 mg Tablet PO (08:43)
[2019-06-25] MEDS: hydroCHLOROthiazide 25 mg Tablet PO (08:43)
[2019-06-25] MEDS: divalproex DR 500 mg Tablet PO ×2 (08:43→17:29)
[2019-06-25] MEDS: lurasidone 20 mg Tablet PO (08:43)
--- NOTE | 2019-06-25 13:57 | P.PN_ITS ---
Subjective NPU Subjective: Interval history: Ced presents today with ongoing complaints now about minor pains in being frustrated he does not feel staff react quickly enough to his concerns. He continues to appear slightly less intrusive though continues to have extended rants that are loud and at times obnoxious. He continues to focus on themes of loneliness and having nowhere to go. He co ntinues to be absent significant insight into his impact on the individuals around him. He seems to be doing better with his sleep-wake cycle and is eating fine. Mental Status Exam MSE Comments: This is an overweight, older, white male, with poor dentition, with adequate dress, grooming, and eye contact. No abnormal movements except for mild psychomotor retardation. Cooperative with exam in no acute distress. Speech was decreased rate and volume but verbose. Mood described as fine; affect irritable. Thought process, organized. Thought content: patient denied any suicidal or homicidal ideation, there were no delusions reported, but some grandiose thinking persists, patient denied any auditory or visual hallucinations. Attention, concentration appeared intact, but memory is unreliable, but were not formally tested. He is Alert and oriented times person and place. Insight and judgment are limited/impaired. Vitals/I&O/Wt Last Vital Signs Temp 97.7 F 06/25/19 21:36 Pulse 63 06/25/19 21:36 Resp 20 H 06/25/19 21:36 BP 146/90 06/25/19 21:36 Pulse Ox 97 06/25/19 21:36 Home Medications No Known Home Medications 06/08/19 [History Confirmed 06/08/19] Active Medications Acetaminophen (Tylenol) 650 mg PO Q4H PRN PRN Reason: MILD PAIN Last Admin: 06/25/19 20:32 Dose: 650 mg Documented by: Albuterol Sulfate (Ventolin) 2 puff INHALATION Q4H.RESPIRATORY PRN PRN Reason: SHORTNESS OF BREATH Last Admin: 06/24/19 13:40 Dose: 2 puff Documented by: Amlodipine Besylate (Norvasc) 10 mg PO DAILY EDGARDO Last Admin: 06/25/19 08:43 Dose: 10 mg Documented by: Benztropine Mesylate (Cogentin) 1 mg PO BID PRN PRN Reason: Mild Extrapyramidal symptoms Camphor/Menthol/Phenol (Blistex) 1 applic TOPICAL Q1H PRN PRN Reason: DRYNESS Clonidine HCl (Catapres) 0.1 mg PO Q12H PRN PRN Reason: SBP >160 Last Admin: 06/17/19 21:57 Dose: 0.1 mg Documented by: Clonidine HCl (Catapres) 0.1 mg PO Q4H PRN PRN Reason: DIASTOLIC BLOOD PRESSURE Last Admin: 06/20/19 19:48 Dose: 0.1 mg Documented by: Diphenhydramine HCl (Benadryl) 50 mg IM ONCE PRN PRN Reason: Severe Extrapyramidal Symptoms Last Admin: 06/14/19 06:32 Dose: 50 mg Documented by: Diphenhydramine HCl (Benadryl) 50 mg IM Q4H PRN PRN Reason: Severe Aggression Divalproex Sodium (Depakote Dr) 500 mg PO BID [facility] Last Admin: 06/25/19 17:29 Dose: 500 mg Documented by: Doxepin HCl (Sinequan) 50 mg PO BEDTIME PRN PRN Reason: insomnia Last Admin: 06/25/19 20:33 Dose: 50 mg Documented by: Gabapentin (Neurontin) 600 mg PO BEDTIME [facility] Last Admin: 06/25/19 20:32 Dose: 600 mg Documented by: Haloperidol Lactate (Haldol Inj) 5 mg IM Q4H PRN PRN Reason: Severe Aggression Last Admin: 06/14/19 06:30 Dose: 5 mg Documented by: Hydralazine HCl (Apresoline) 25 mg PO TID [facility] Last Admin: 06/25/19 20:33 Dose: 25 mg Documented by: Hydrochlorothiazide (Hctz) 25 mg PO DAILY [facility] Last Admin: 06/25/19 08:43 Dose: 25 mg Documented by: Lurasidone HCl (Latuda) 80 mg PO 0800 [facility] Last Admin: 06/25/19 08:43 Dose: 80 mg Documented by: Lurasidone HCl (Latuda) 20 mg PO 0800 [facility] Last Admin: 06/25/19 08:43 Dose: 20 mg Documented by: Lurasidone HCl (Latuda) 40 mg PO 2100 [facility] Last Admin: 06/25/19 20:31 Dose: 40 mg Documented by: Metoprolol Tartrate (Lopressor) 25 mg PO BID [facility] Last Admin: 06/25/19 17:29 Dose: 25 mg Documented by: Nicotine (Nicoderm 21 Mg Patch) 1 patch TRANSDERMA DAILY PRN PRN Reason: NICOTINE WITHDRAWAL Nicotine Polacrilex (Nicorette) 2 mg BUCCAL Q2H PRN PRN Reason: NICOTINE WITHDRAWAL Last Admin: 06/10/19 16:52 Dose: 2 mg Documented by: Olanzapine (Zyprexa Zydis) 5 mg PO Q4H PRN PRN Reason: Agitation/Psychosis Last Admin: 06/20/19 14:09 Dose: 5 mg Documented by: Olanzapine (Zyprexa Zydis) 5 mg PO BEDTIME [facility] Last Admin: 06/25/19 20:32 Dose: 5 mg Documented by: Ondansetron HCl (Zofran) 4 mg PO Q6H PRN PRN Reason: NAUSEA AND VOMITING Senna/Docusate Sodium (Senna-S) 1 tab PO DAILY PRN PRN Reason: CONSTIPATION Ziprasidone (Geodon) 20 mg PO Q4H PRN PRN Reason: AGITATION Last Admin: 06/23/19 20:09 Dose: 20 mg Documented by: Ziprasidone (Geodon) 20 mg IM BID PRN PRN Reason: AGITATION Data NPU : 06/24/19 17:45 06/24/19 17:45 Micro: Microbiology 06/24/19 17:34 Chlamydia trachomatis (ANGELIQUE) - Final Urine Random Neisseria gonorrhoeae (ANGELIQUE) - Final Microbiology 06/24/19 17:34 Urine Random Chlamydia trachomatis (ANGELIQUE) - Final 06/24/19 17:34 Urine Random Neisseria gonorrhoeae (ANGELIQUE) - Final A&P Additional A&P Information (1) Bipolar I disorder with mood-congruent psychotic features: This is a 59-year-old white male with a long history of bipolar disorder who presents with alexsander amaya on a 21-day hold. 1. Continue current medications. 2. Encourage individual, group and milieu therapy. 3. Continue to 15-minute checks for safety. (2) Acute psychosis: Involuntary Hold Information 96 Hour Hold: 96 Hour Involuntary Admission: Yes 96 Hour Hold Ending Date: 06/14/19 96 Hour Hold Ending Time: 16:30 21 Day Hold: 21 Day Hold Start Date: 06/14/19 21 Day Hold Start Time: 14:32 21 Day Hold End Date: 07/06/19 21 Day Hold End Time: 14:32 Attestations NPU Medical Necessity Statement*: Inpatient hospitalization is medically necessary and the clinically appropriate intervention at this time. We will adjust and add medications as indicated. Likely length of stay 5 to 7 days. Coding Level of Care Code Acute Optical Sales Associate for Jhonatan Bajwa
[2019-06-25 14:00] VITALS: BP 150/86; PULSE 80; RESP 18; TEMP 36.5; O2SAT 97
[2019-06-25] MEDS: acetaminophen 325 mg Tablet 650 MG PO ×2 (16:21→20:32)
[2019-06-25] MEDS: lurasidone 20 mg Tablet 40 MG PO (20:31)
[2019-06-25] MEDS: OLANZapine ODT 5 MG TABLET PO (20:32)
[2019-06-25] MEDS: gabapentin 300 mg Capsule 600 MG PO (20:32)
[2019-06-25] MEDS: doxepin 50 mg Capsule PO (20:33)
[2019-06-25 21:36] VITALS: BP 146/90; PULSE 63; RESP 20; TEMP 36.5; O2SAT 97
--- NOTE | 2019-06-25 22:22 | PC.NURSE ---
pt requested sleep medication when receiving bedtime meds. Has remained awake but calm. Will continue to monitor
[2019-06-26 06:00] VITALS: RESP 22
[2019-06-26] MEDS: divalproex DR 500 mg Tablet PO ×2 (08:06→17:31)
[2019-06-26] MEDS: hydroCHLOROthiazide 25 mg Tablet PO (08:07)
[2019-06-26] MEDS: amlodipine 10 mg Tablet PO (08:07)
[2019-06-26] MEDS: lurasidone 20 mg Tablet PO (08:07)
[2019-06-26] MEDS: lurasidone 80 mg Tablet PO (08:07)
[2019-06-26] MEDS: metoprolol tartrate 25 mg Tablet PO ×2 (08:07→17:31)
[2019-06-26] MEDS: hyDRALAzine 25 mg Tablet PO ×3 (08:07→20:35)
[2019-06-26 14:00] VITALS: BP 146/90; PULSE 72; RESP 18; TEMP 36.7; O2SAT 97
--- NOTE | 2019-06-26 15:02 | PC.NURSE ---
Nursing Note; Hospital came to see patient regarding client complaint of hernia discomfort in right groin area. Hospitalist request that we obtain scrotal support underwear from surgery or the Operating room. Called warehouse freight handler to get scrotal support underwear from surgery. city plant supervisor provided staff with large pair of support underwear.
--- NOTE | 2019-06-26 15:15 | PM.NPN ---
Subjective NPU Subjective: Interval history: The patient presents today reporting that he is still having pain. The hospitalist continues to come by and check on him, and he was given a pair of special underwear to hold his scrotum in to try to relieve pain, if that is what it is from. He kind of went off today, saying that the reason why he is having the pain is some manan kicked him there, but it seemed like one of his regular rants that probably do not have basis in reality. Otherwise, in general, it seems like he is calmer, and he seems like he feels better, but he still has those extreme moments where he is very pressured and verbally aggressive. He is eating and sleeping well. Medications: Reviewed: Yes Mental Status Exam MSE Comments: This is an overweight, older, white male, with adequate dress, grooming, and eye contact. No abnormal movements, except for intermittent psychomotor agitation. Mostly cooperative with exam in occasional mild to moderate distress. Speech was mostly regular rate and volume, but with moments of significant pressured speech and where he is hyper-verbose. Mood described as fine; affect mostly irritable. Thought process, mostly organized. Thought content: patient denied any suicidal or homicidal ideation, there were no delusions reported or noted, he denied any auditory or visual hallucinations. Attention and concentration were mostly intact, and memory was unreliable, but none were formally tested. He is alert and oriented times person and place. Insight and judgment are impaired. Vitals/I&O/Wt Last Vital Signs Temp 97.6 F 06/27/19 06:00 Pulse 78 06/27/19 06:00 Resp 21 H 06/27/19 06:00 BP 127/92 06/27/19 06:00 Pulse Ox 96 06/27/19 06:00 Weight last 48 hrs Weight 88.269 kg Data NPU : 06/24/19 17:45 06/24/19 17:45 A&P Additional A&P Information (1) Bipolar I disorder with mood-congruent psychotic features: This is a 59-year-old white male with a long history of bipolar disorder who presents with alexsander amaya on a 21-day hold. 1. Continue current medications. 2. Encourage individual, group and milieu therapy. 3. Continue to 15-minute checks for safety. (2) Acute psychosis: Involuntary Hold Information 96 Hour Hold: 96 Hour Involuntary Admission: Yes 96 Hour Hold Ending Date: 06/14/19 96 Hour Hold Ending Time: 16:30 21 Day Hold: 21 Day Hold Start Date: 06/14/19 21 Day Hold Start Time: 14:32 21 Day Hold End Date: 07/06/19 21 Day Hold End Time: 14:32 Attestations NPU Medical Necessity Statement*: Inpatient hospitalization is medically necessary and the clinically appropriate intervention at this time. We will adjust and add medications as indicated. Likely length of stay 5 to 7 days. Coding Level of Care Code Acute Assistant Hairstylist for Jhonatan Bajwa
--- NOTE | 2019-06-26 19:51 | PM.PN ---
Subjective Subjective: Interval history: No new complaints. Continues to have intermittent pain and subjective swelling in R groin. Labs returned WNL Medications: Reviewed: Yes Vitals/I&O/Wt Last Vital Signs Temp 98.0 F 06/26/19 14:00 Pulse 72 06/26/19 14:00 Resp 18 06/26/19 14:00 BP 146/90 06/26/19 14:00 Pulse Ox 97 06/26/19 14:00 Weight last 48 hrs Weight 88.269 kg Data : 06/24/19 17:45 06/24/19 17:45 A&P Assessment and plan (1) Inguinal hernia: Status: Acute (2) Ventral hernia: Status: Acute Additional A&P Information 1. Ventral abdominal hernia: completely reducible. No sisgns of incarceration or obstruction 2. Right inguinal hernia: Unable to appreciate swelling at this time, CT abdomen was ordered to r/o incareceration vs obstruction-no radiological or clinical signs of obstruction at this time. Patient continues to c/o discomfort in the area without any obvious tenderness. Incidentally noted mesenteric lymphadenopathy- negative HIV, hepatitis, GC screen. Quantiferon pending. Will need follow up as outpatient with PCP - Can try scrotal support to see if it relives patient discomfort in the groin -refer to gen/surg at time of discharge to assess for routine hernia repair # HTN: currently controlled. If starts to develop SBP>160 again, can titrate up the dose of hydralazine Thank you for opportunity to be involved in patient care. Please reconsult if needed Attestations Medical Necessity Statement*: per admitting team Coding Level of Care Code Acute Suture Winder Hand for Jhonatan Bajwa Diagnoses Inguinal hernia K40.90 Ventral hernia K43.9
[2019-06-26] MEDS: gabapentin 300 mg Capsule 600 MG PO (20:34)
[2019-06-26] MEDS: OLANZapine ODT 5 MG TABLET PO (20:35)
[2019-06-26] MEDS: doxepin 50 mg Capsule PO (20:35)
[2019-06-26] MEDS: lurasidone 20 mg Tablet 40 MG PO (20:36)
--- NOTE | 2019-06-26 20:38 | PC.NURSE ---
Pt given scheduled gabapentin, apresoline, latuda and zyprexa as well as a prn doxepin at this time.
[2019-06-26 21:03] VITALS: BP 144/81; PULSE 72; RESP 18; TEMP 36.8; O2SAT 94
[2019-06-27 06:00] VITALS: BP 127/92; PULSE 78; RESP 21; TEMP 36.4; O2SAT 96
[2019-06-27] MEDS: metoprolol tartrate 25 mg Tablet PO ×2 (08:24→18:13)
[2019-06-27] MEDS: hydroCHLOROthiazide 25 mg Tablet PO (08:24)
[2019-06-27] MEDS: divalproex DR 500 mg Tablet PO ×2 (08:24→18:13)
[2019-06-27] MEDS: lurasidone 20 mg Tablet PO (08:24)
[2019-06-27] MEDS: amlodipine 10 mg Tablet PO (08:24)
[2019-06-27] MEDS: hyDRALAzine 25 mg Tablet PO ×3 (08:24→21:32)
[2019-06-27] MEDS: lurasidone 80 mg Tablet PO (08:24)
--- NOTE | 2019-06-27 09:33 | PM.NPN ---
Subjective NPU Subjective: Interval history: The patient presents today reporting that he is doing okay. He did start off the day fairly rambunctious with some yelling and agitation, but that quickly dissipated. It seems like he is fairly lonely and if he has someone to talk to, then he is fine, but this isolation that is being brought about by him being in the hospital, as well as the approaches to keeping people safe from the COVID-19 virus, have created an isolation that does not seem to be good for Ced. We are continuing to monitor to watch to see if these episodes where he seems activated are decreasing or not. If we deem that they are not, we likely will add the Invega in the morning versus Ability to try to create something that could ultimately be an injectable. He had his normal annoyances with people and their approaches to things, and why things are not the way he thinks of them, but otherwise he had a fairly decent 24-hour period. This is an overweight, older white male, with adequate dress, grooming, and eye contact. No abnormal movements except for mild psychomotor retardation. Cooperative with exam in occasional distress. Speech was normal rate and volume with occasional episodes of increase intensity and activation. Mood described as fine; affect mostly congruent and subdued. Thought process, organized. Thought content: patient denied any suicidal or homicidal ideation, there were no delusions reported or noted, patient denied any auditory or visual hallucinations. He appears to have less paranoia and agitation. Attention and concentration are improving. Memory continues to be unreliable. Insight and judgment are limited but improving. Mental Status Exam MSE Comments: This is an overweight, older white male, with adequate dress, grooming, and eye contact. No abnormal movements except for mild psychomotor retardation. Cooperative with exam in occasional distress. Speech was normal rate and volume with occasional episodes of increase intensity and activation. Mood described as fine; affect mostly congruent and subdued. Thought process, organized. Thought content: patient denied any suicidal or homicidal ideation, there were no delusions reported or noted, patient denied any auditory or visual hallucinations. He appears to have less paranoia and agitation. Attention and concentration are improving. Memory continues to be unreliable. Insight and judgment are limited but improving. Vitals/I&O/Wt Last Vital Signs Temp 97.7 F 06/27/19 22:00 Pulse 73 06/27/19 22:00 Resp 20 H 06/27/19 22:00 BP 143/92 06/27/19 22:00 Pulse Ox 97 06/27/19 22:00 Weight last 48 hrs Weight 88.269 kg Home Medications No Known Home Medications 06/08/19 [History Confirmed 06/08/19] Active Medications Acetaminophen (Tylenol) 650 mg PO Q4H PRN PRN Reason: MILD PAIN Last Admin: 06/25/19 20:32 Dose: 650 mg Documented by: Albuterol Sulfate (Ventolin) 2 puff INHALATION Q4H.RESPIRATORY PRN PRN Reason: SHORTNESS OF BREATH Last Admin: 06/27/19 15:35 Dose: 2 puff Documented by: Amlodipine Besylate (Norvasc) 10 mg PO DAILY [facility] Last Admin: 06/27/19 08:24 Dose: 10 mg Documented by: Benztropine Mesylate (Cogentin) 1 mg PO BID PRN PRN Reason: Mild Extrapyramidal symptoms Camphor/Menthol/Phenol (Blistex) 1 applic TOPICAL Q1H PRN PRN Reason: DRYNESS Clonidine HCl (Catapres) 0.1 mg PO Q12H PRN PRN Reason: SBP >160 Last Admin: 06/17/19 21:57 Dose: 0.1 mg Documented by: Clonidine HCl (Catapres) 0.1 mg PO Q4H PRN PRN Reason: DIASTOLIC BLOOD PRESSURE Last Admin: 06/20/19 19:48 Dose: 0.1 mg Documented by: Diphenhydramine HCl (Benadryl) 50 mg IM ONCE PRN PRN Reason: Severe Extrapyramidal Symptoms Last Admin: 06/14/19 06:32 Dose: 50 mg Documented by: Diphenhydramine HCl (Benadryl) 50 mg IM Q4H PRN PRN Reason: Severe Aggression Divalproex Sodium (Depakote Dr) 500 mg PO BID [facility] Last Admin: 06/27/19 18:13 Dose: 500 mg Documented by: Doxepin HCl (Sinequan) 50 mg PO BEDTIME PRN PRN Reason: insomnia Last Admin: 06/27/19 21:32 Dose: 50 mg Documented by: Gabapentin (Neurontin) 600 mg PO BEDTIME [facility] Last Admin: 06/27/19 21:32 Dose: 600 mg Documented by: Haloperidol Lactate (Haldol Inj) 5 mg IM Q4H PRN PRN Reason: Severe Aggression Last Admin: 06/14/19 06:30 Dose: 5 mg Documented by: Hydralazine HCl (Apresoline) 25 mg PO TID [facility] Last Admin: 06/27/19 21:32 Dose: 25 mg Documented by: Hydrochlorothiazide (Hctz) 25 mg PO DAILY [facility] Last Admin: 06/27/19 08:24 Dose: 25 mg Documented by: Lurasidone HCl (Latuda) 80 mg PO 0800 [facility] Last Admin: 06/27/19 08:24 Dose: 80 mg Documented by: Lurasidone HCl (Latuda) 20 mg PO 0800 [facility] Last Admin: 06/27/19 08:24 Dose: 20 mg Documented by: Lurasidone HCl (Latuda) 40 mg PO 2100 [facility] Last Admin: 06/27/19 21:32 Dose: 40 mg Documented by: Metoprolol Tartrate (Lopressor) 25 mg PO BID [facility] Last Admin: 06/27/19 18:13 Dose: 25 mg Documented by: Nicotine (Nicoderm 21 Mg Patch) 1 patch TRANSDERMA DAILY PRN PRN Reason: NICOTINE WITHDRAWAL Nicotine Polacrilex (Nicorette) 2 mg BUCCAL Q2H PRN PRN Reason: NICOTINE WITHDRAWAL Last Admin: 06/10/19 16:52 Dose: 2 mg Documented by: Olanzapine (Zyprexa Zydis) 5 mg PO Q4H PRN PRN Reason: Agitation/Psychosis Last Admin: 06/20/19 14:09 Dose: 5 mg Documented by: Olanzapine (Zyprexa Zydis) 5 mg PO BEDTIME [facility] Last Admin: 06/27/19 21:32 Dose: 5 mg Documented by: Ondansetron HCl (Zofran) 4 mg PO Q6H PRN PRN Reason: NAUSEA AND VOMITING Senna/Docusate Sodium (Senna-S) 1 tab PO DAILY PRN PRN Reason: CONSTIPATION Ziprasidone (Geodon) 20 mg PO Q4H PRN PRN Reason: AGITATION Last Admin: 06/23/19 20:09 Dose: 20 mg Documented by: Ziprasidone (Geodon) 20 mg IM BID PRN PRN Reason: AGITATION Data NPU : 06/24/19 17:45 06/24/19 17:45 A&P Additional A&P Information (1) Bipolar I disorder with mood-congruent psychotic features: This is a 59-year-old white male with a long history of bipolar disorder who presents with alexsander amaya on a 21-day hold. 1. Continue current medications. 2. Encourage individual, group and milieu therapy. 3. Continue to 15-minute checks for safety. (2) Acute psychosis: Involuntary Hold Information 96 Hour Hold: 96 Hour Involuntary Admission: Yes 96 Hour Hold Ending Date: 06/14/19 96 Hour Hold Ending Time: 16:30 21 Day Hold: 21 Day Hold Start Date: 06/14/19 21 Day Hold Start Time: 14:32 21 Day Hold End Date: 07/06/19 21 Day Hold End Time: 14:32 Attestations NPU Medical Necessity Statement*: Inpatient hospitalization is medically necessary and the clinically appropriate intervention at this time. We will adjust and add medications as indicated. Likely length of stay 5 to 7 days. Coding Level of Care Code Acute Telegraph Dispatcher for Jhnoatan Bajwa
[2019-06-27 14:00] VITALS: BP 148/80; PULSE 62; RESP 18; TEMP 36.8; O2SAT 96
[2019-06-27] MEDS: albuterol 8 gm MDI 2 PUFF INHALATION (15:35)
[2019-06-27 15:37] VITALS: PULSE 70; RESP 18; O2SAT 98
[2019-06-27] MEDS: gabapentin 300 mg Capsule 600 MG PO (21:32)
[2019-06-27] MEDS: lurasidone 20 mg Tablet 40 MG PO (21:32)
[2019-06-27] MEDS: doxepin 50 mg Capsule PO (21:32)
[2019-06-27] MEDS: OLANZapine ODT 5 MG TABLET PO (21:32)
[2019-06-27 22:00] VITALS: BP 143/92; PULSE 73; RESP 20; TEMP 36.5; O2SAT 97
[2019-06-28 06:00] VITALS: BP 137/82; PULSE 62; RESP 17; TEMP 36.7; O2SAT 97
[2019-06-28] MEDS: metoprolol tartrate 25 mg Tablet PO ×2 (10:31→17:41)
[2019-06-28] MEDS: lurasidone 20 mg Tablet PO (10:31)
[2019-06-28] MEDS: hyDRALAzine 25 mg Tablet PO ×3 (10:32→20:47)
[2019-06-28] MEDS: amlodipine 10 mg Tablet PO (10:32)
[2019-06-28] MEDS: hydroCHLOROthiazide 25 mg Tablet PO (10:32)
[2019-06-28] MEDS: lurasidone 80 mg Tablet PO (10:32)
[2019-06-28] MEDS: divalproex DR 500 mg Tablet PO ×2 (10:32→17:42)
--- NOTE | 2019-06-28 11:46 | PM.NPN ---
Subjective NPU Subjective: Interval history: Ced presents today reporting that he is doing okay. But then he got really angry after we discussed the pain in his groin, reporting the idea that the police had tackled him and had kicked him in his groin and really hurt something there, being angry that the doctor did not find anything, reportedly telling staff that I should be the doctor finding things and that I am releasing it to the hospitalist who does not even know him and can not find the injury that the police gave him. We discussed the fact that he we would start some medication tomorrow to augment what he has, and he really did not have an opinion about it. He was just really angry about being kicked by the vascular technologist. Mental Status Exam MSE Comments: This is an overweight, older, white male, with adequate dress and grooming, and limited eye contact. No abnormal movements, except for psychomotor agitation. Semi-cooperative with exam in mild to moderate distress. Speech was normal rate and volume, until it he gets irritated and then it is significant increased rate and volume. Mood described as ?pissed off?; affect congruent. Thought process, organized. Thought content: patient denied any suicidal or homicidal ideation, there were no delusions reported, but clear grandiose and paranoid and persecutory delusions exist, patient denied any auditory or visual hallucinations. Attention and concentration appeared intact, and memory was unreliable, but none were formally tested. He is alert and oriented times three. Insight and judgment are impaired. Vitals/I&O/Wt Last Vital Signs Temp 98.8 F 06/28/19 20:54 Pulse 66 06/28/19 20:54 Resp 20 H 06/28/19 20:54 BP 108/75 06/28/19 20:54 Pulse Ox 94 06/28/19 20:54 Data NPU : 06/24/19 17:45 06/24/19 17:45 A&P Additional A&P Information (1) Bipolar I disorder with mood-congruent psychotic features: This is a 59-year-old white male with a long history of bipolar disorder who presents with alexsander amaya on a 21-day hold. 1. Continue current medications. 2. Encourage individual, group and milieu therapy. 3. Continue to 15-minute checks for safety. (2) Acute psychosis: Involuntary Hold Information 96 Hour Hold: 96 Hour Involuntary Admission: Yes 96 Hour Hold Ending Date: 06/14/19 96 Hour Hold Ending Time: 16:30 21 Day Hold: 21 Day Hold Start Date: 06/14/19 21 Day Hold Start Time: 14:32 21 Day Hold End Date: 07/06/19 21 Day Hold End Time: 14:32 Attestations NPU Medical Necessity Statement*: Inpatient hospitalization is medically necessary and the clinically appropriate intervention at this time. We will adjust and add medications as indicated. Likely length of stay 5 to 7 days. Coding Level of Care Code Acute Thermal Molder for Jhonatan Bajwa
[2019-06-28 14:00] VITALS: BP 109/72; PULSE 65; RESP 16; TEMP 36.9; O2SAT 97
[2019-06-28] MEDS: lurasidone 20 mg Tablet 40 MG PO (20:46)
[2019-06-28] MEDS: doxepin 50 mg Capsule PO (20:46)
[2019-06-28] MEDS: OLANZapine ODT 5 MG TABLET PO (20:47)
[2019-06-28] MEDS: gabapentin 300 mg Capsule 600 MG PO (20:47)
--- NOTE | 2019-06-28 20:47 | PC.NURSE ---
pt given scheduled gabapentin, apresoline, latuda, zyprexa, and prn doxepin at this time.
[2019-06-28 20:54] VITALS: BP 108/75; PULSE 66; RESP 20; TEMP 37.1; O2SAT 94
[2019-06-29 06:00] VITALS: RESP 19
[2019-06-29] MEDS: metoprolol tartrate 25 mg Tablet PO ×2 (07:55→17:48)
[2019-06-29] MEDS: ARIPiprazole 10 mg Tablet 5 MG PO (07:56)
[2019-06-29] MEDS: amlodipine 10 mg Tablet PO (07:56)
[2019-06-29] MEDS: lurasidone 20 mg Tablet PO (07:56)
[2019-06-29] MEDS: hyDRALAzine 25 mg Tablet PO ×3 (07:57→20:44)
[2019-06-29] MEDS: lurasidone 80 mg Tablet PO (07:57)
[2019-06-29] MEDS: divalproex DR 500 mg Tablet PO ×2 (07:57→17:48)
[2019-06-29] MEDS: hydroCHLOROthiazide 25 mg Tablet PO (07:57)
[2019-06-29 14:00] VITALS: BP 116/74; PULSE 68; RESP 20; TEMP 36.8; O2SAT 97
--- NOTE | 2019-06-29 14:56 | P.PN_ITS ---
Subjective NPU Subjective: Interval history: The patient presents today reporting that he is doing okay. He denies any issues with the medication. When asked specifically if there was anything new about the medication that bothered him, he reported that he just takes the medication we give him, he does not know the difference. He continues to ratchet down on the energy, not having outbursts as frequently and not lasting as long. In general, it is taking more for him to get to the level of aggression he had before. We discussed the fact that we would likely be filing an extension of his 21-day hold, as we are still struggling with the symptoms. That did not make him happy but he reports he does not have a choice, and he has no where to go, so what is he supposed to do? Mental Status Exam MSE Comments: This is an overweight, older appearing, white male, with adequate dress and grooming, and limited eye contact. No abnormal movements, except for mild psychomotor retardation. Semi-cooperative with exam in no acute distress. Speech was decreased rate and volume. Mood described as okay; affect irritated. Thought process, more organized. Thought content: patient denied any suicidal or homicidal ideation, there were decreasing grandiose delusions and paranoia noted, patient denied any auditory or visual hallucinations. Attention and concentration appeared intact, and memory was unreliable, but none were formally tested. He is alert and oriented times three. Insight and judgment are impaired but improving. Vitals/I&O/Wt Last Vital Signs Temp 97.9 F 06/29/19 21:22 Pulse 64 06/29/19 21:22 Resp 18 06/29/19 21:22 BP 131/89 06/29/19 21:22 Pulse Ox 92 06/29/19 21:22 Data NPU : 06/30/19 12:35 06/30/19 12:35 A&P Additional A&P Information (1) Bipolar I disorder with mood-congruent psychotic features: This is a 59-year-old white male with a long history of bipolar disorder who presents with alexsander amaya on a 21-day hold. 1. Continue current medications. 2. Encourage individual, group and milieu therapy. 3. Continue to 15-minute checks for safety. (2) Acute psychosis: Involuntary Hold Information 96 Hour Hold: 96 Hour Involuntary Admission: Yes 96 Hour Hold Ending Date: 06/14/19 96 Hour Hold Ending Time: 16:30 21 Day Hold: 21 Day Hold Start Date: 06/14/19 21 Day Hold Start Time: 14:32 21 Day Hold End Date: 07/06/19 21 Day Hold End Time: 14:32 Attestations NPU Medical Necessity Statement*: Inpatient hospitalization is medically necessary and the clinically appropriate intervention at this time. We will adjust and add medications as indicated. Likely length of stay 5 to 7 days. Coding Level of Care Code Acute Chlorinator Operator for Jhonatan Bajwa
[2019-06-29] MEDS: doxepin 50 mg Capsule PO (20:45)
[2019-06-29] MEDS: gabapentin 300 mg Capsule 600 MG PO (20:45)
[2019-06-29] MEDS: OLANZapine ODT 5 MG TABLET PO (20:45)
[2019-06-29] MEDS: lurasidone 20 mg Tablet 40 MG PO (20:46)
--- NOTE | 2019-06-29 21:01 | PC.NURSE ---
PRN DOXEPIN PT REQUESTING SLEEP AID. ADMINISTERED DOXEPIN 50 MG PO. WILL MONITOR FOR MEDICATION EFFECTIVENESS.
[2019-06-29 21:22] VITALS: BP 131/89; PULSE 64; RESP 18; TEMP 36.6; O2SAT 92
[2019-06-30 06:00] VITALS: BP 129/78; PULSE 59; RESP 18; TEMP 36.7; O2SAT 98
[2019-06-30] MEDS: lurasidone 80 mg Tablet PO (07:56)
[2019-06-30] MEDS: metoprolol tartrate 25 mg Tablet PO ×2 (07:56→17:05)
[2019-06-30] MEDS: hyDRALAzine 25 mg Tablet PO ×3 (07:56→20:51)
[2019-06-30] MEDS: lurasidone 20 mg Tablet PO (07:56)
[2019-06-30] MEDS: amlodipine 10 mg Tablet PO (07:57)
[2019-06-30] MEDS: divalproex DR 500 mg Tablet PO ×2 (07:57→17:05)
[2019-06-30] MEDS: ARIPiprazole 10 mg Tablet 5 MG PO (07:57)
[2019-06-30] MEDS: hydroCHLOROthiazide 25 mg Tablet PO (07:57)
[2019-06-30 13:02] LABS: Ammonia 46 umol/L (16-60)
[2019-06-30 13:03] LABS: Alanine Aminotransferase 13 U/L (0-41); Albumin Level 3.8 g/dL (3.5-5.2); Alkaline Phosphatase 96 IU/L (40-130); Anion Gap 14.7 (5-19); Aspartate Amino Transferase 12 U/L (0-40); Blood Urea Nitrogen 17 mg/dL (8-23); Calcium 9.1 mg/dL (8.5-10.5); Carbon Dioxide 28 mmol/L (22-29); Chloride 98 mmol/L (98-107); Globulin 3.2 g/dL (1.3-4.6); Glomerular Filtration Rate 76.2 mL/min (90-130); Glucose 156 mg/dL (65-115); Osmolality Calculated 284 mOsm/kg (285-295); Potassium 3.7 mmol/L (3.5-5.1); Sodium 137 mmol/L (136-145); Total Bilirubin 0.3 mg/dL (0.15-1.2)
[2019-06-30 13:07] LABS: Basophils % 0.4 %; Eosinophils # 0.2 10^3/uL (0.0-0.8); Eosinophils % 2.3 %; Hematocrit 43.9 % (42.0-52.0); Hemoglobin 14.2 g/dL (11.7-16.6); Lymphocytes # 2.2 10^3/uL (0.8-4.8); Lymphocytes % 23.3 %; Mean Corpuscular HGB Conc 32.3 g/dL (30.0-36.0); Mean Corpuscular Hemoglobin 30.9 pg (28.0-34.0); Mean Corpuscular Volume 95.6 fL (80-94); Mean Platelet Volume 10.6 fL (7.4-10.4); Monocytes # 0.8 10^3/uL (0.2-0.9); Monocytes % 8.5 %; Neutrophils # 6.3 10^3/uL (1.8-7.7); Neutrophils % 65.2 %; Nucleated Red Blood Cells % 0 %; Platelet Count 193 10^3/cmm (130-400); Red Blood Count 4.59 10^6/uL (4.1-5.3); Red Cell Distribution Width 13.7 % (12.1-15.1); White Blood Count 9.6 10^3/uL (4.0-10.0)
--- NOTE | 2019-06-30 13:32 | PC.SOCIAL ---
Filed for [address] date scheduled for Thursday07/04/2019 at 1:00 p.m.
[2019-06-30 14:00] VITALS: BP 111/72; PULSE 67; RESP 20; TEMP 36.6; O2SAT 94
--- NOTE | 2019-06-30 20:03 | P.PN_ITS ---
Subjective NPU Subjective: Interval history: Ced presents today reporting that he is tired. Staff reports that he has finally been getting good sleep during the evening, but he is now sleeping throughout the day as well. He seems fairly lethargic and out of it, but without any specific complaints, but it was almost like he was so tired there was nothing to complain about. He reportedly slept hours through the night. So I advised him of the risks, benefits, and alternatives of me getting some labs first, and then possibly reconsulting the hospitalist to see if they have any thoughts about his presentation. Mental Status Exam MSE Comments: This is a older appearing, overweight, white male, with limited dress, grooming, and eye contact. No abnormal movements except for significant psychomotor retardation. Semi-cooperative with exam in no acute distress. Speech was limited and decreased rate and volume. Mood described as tired; affect congruent. Thought process, organized. Thought content: patient denied any suicidal or homicidal ideation, there were no delusions reported or noted, pat ient denied any auditory or visual hallucinations. Attention and concentration appeared intact, and memory was unreliable, but none were formally tested. He is alert and oriented times three. Insight and judgment are limited/impaired but improving. Vitals/I&O/Wt Last Vital Signs Temp 97.9 F 06/30/19 14:00 Pulse 67 06/30/19 14:00 Resp 20 H 06/30/19 14:00 BP 111/72 06/30/19 14:00 Pulse Ox 94 06/30/19 14:00 Data NPU : 06/30/19 12:35 06/30/19 12:35 A&P Additional A&P Information (1) Bipolar I disorder with mood-congruent psychotic features: This is a 59-year-old white male with a long history of bipolar disorder who presents with alexsander amaya on a 21-day hold. 1. Continue current medications. 2. Encourage individual, group and milieu therapy. 3. Continue to 15-minute checks for safety. 4. Check labs to rule out acute medical issues (2) Acute psychosis: Involuntary Hold Information 96 Hour Hold: 96 Hour Involuntary Admission: Yes 96 Hour Hold Ending Date: 06/14/19 96 Hour Hold Ending Time: 16:30 21 Day Hold: 21 Day Hold Start Date: 06/14/19 21 Day Hold Start Time: 14:32 21 Day Hold End Date: 07/06/19 21 Day Hold End Time: 14:32 Attestations NPU Medical Necessity Statement*: Inpatient hospitalization is medically necessary and the clinically appropriate intervention at this time. We will adjust and add medications as indicated. Likely length of stay 5 to 7 days. Coding Level of Care Code Acute Health Data Analyst for Jhonatan Bajwa
[2019-06-30] MEDS: lurasidone 20 mg Tablet 40 MG PO (20:51)
[2019-06-30] MEDS: OLANZapine ODT 5 MG TABLET PO (20:51)
[2019-06-30] MEDS: gabapentin 300 mg Capsule 600 MG PO (20:51)
[2019-06-30 21:58] VITALS: BP 132/77; PULSE 58; RESP 17; TEMP 36.6; O2SAT 95
[2019-07-01 06:00] VITALS: BP 128/93; PULSE 63; RESP 18; TEMP 36.6; O2SAT 97
[2019-07-01] MEDS: hyDRALAzine 25 mg Tablet PO ×3 (08:06→20:35)
[2019-07-01] MEDS: divalproex DR 500 mg Tablet PO ×2 (08:06→18:08)
[2019-07-01] MEDS: ARIPiprazole 10 mg Tablet 5 MG PO (08:07)
[2019-07-01] MEDS: hydroCHLOROthiazide 25 mg Tablet PO (08:08)
[2019-07-01] MEDS: lurasidone 80 mg Tablet PO (08:08)
[2019-07-01] MEDS: lurasidone 20 mg Tablet PO (08:08)
[2019-07-01] MEDS: metoprolol tartrate 25 mg Tablet PO ×2 (08:08→18:08)
[2019-07-01] MEDS: amlodipine 10 mg Tablet PO (08:11)
--- NOTE | 2019-07-01 10:00 | P.PN_ITS ---
Subjective NPU Subjective: Interval history: Ced presents today probably seeming as functionally appropriate as he has the whole time this typewriter tester has interacted with him. He reported that he was feeling okay/better. He was calm, fairly articulate in his questions, and he requested that this typewriter tester go over some papers that he had. When I got to his room, I was surprised to find that they were the papers that were filed from my request that he be held for 90 additional days. He reported he did not understand the paperwork. I was able to sum up the paperwork in that it represented the treatment team?s position that he was not ready to be discharged secondary to confusion and mental status i ssues, but that we were desiring to get him to a safe reasonable discharge location to allow him to have as much freedom as possible and be functional. He reported that is what he wanted too, he did not want to be just discharged without a clear sense of where he wanted to go and so he was asking if he had to go to court, and I explained to him what his rights were to be there and be a part of the process, but also identified that if he was accepting that we were functioning in his best behalf and his best interest, that it would be okay for him to tell them that he accepted the situation and he would not have to go to court which he, at least at this point, identifies that is what he would like to do. Otherwise, he denied any issues and did not lament and obsess over pain and physical complaints as he had. Mental Status Exam MSE Comments: This is a slightly overweight, older, white male, with adequate dress, grooming, and eye contact. No abnormal movements except for mild but improving psychomotor retardation. Cooperative with exam in no acute distress. Speech was slightly decreased rate and volume. Mood described as alright; affect slightly subdued but not volatile. Thought process, more organized. Thought content: patient denied any suicidal or homicidal ideation, there were no delusions reported or noted, patient denied any auditory or visual hallucinations. Attention, concentration, and memory appeared intact but were not formally tested. Alert and oriented to person and place. Insight and judgment are limited but improving and impulse control is improving. Vitals/I&O/Wt Last Vital Signs Temp 98.1 F 07/01/19 19:35 Pulse 90 07/01/19 19:35 Resp 18 07/01/19 19:35 BP 152/95 07/01/19 19:35 Pulse Ox 94 07/01/19 19:35 Data NPU : 06/30/19 12:35 06/30/19 12:35 A&P Additional A&P Information (1) Bipolar I disorder with mood-congruent psychotic features: This is a 59-year-old white male with a long history of bipolar disorder who presents with some improvements with his amaya on a 21-day hold. 1. Continue current medications. 2. Encourage individual, group and milieu therapy. 3. Continue to 15-minute checks for safety. (2) Acute psychosis: Involuntary Hold Information 96 Hour Hold: 96 Hour Involuntary Admission: Yes 96 Hour Hold Ending Date: 06/14/19 96 Hour Hold Ending Time: 16:30 21 Day Hold: 21 Day Hold Start Date: 06/14/19 21 Day Hold Start Time: 14:32 21 Day Hold End Date: 07/06/19 21 Day Hold End Time: 14:32 Attestations NPU Medical Necessity Statement*: Inpatient hospitalization is medically necessary and the clinically appropriate intervention at this time. We will adjust and add medications as indicated. Likely length of stay 5 to 7 days. Coding Level of Care Code Acute Plate Mill Mill Hand for Jhonatan Bajwa
[2019-07-01 14:00] VITALS: BP 120/76; PULSE 62; RESP 20; TEMP 36.8; O2SAT 92
[2019-07-01 15:00] VITALS: PULSE 96; RESP 17; O2SAT 98
[2019-07-01 19:35] VITALS: BP 152/95; PULSE 90; RESP 18; TEMP 36.7; O2SAT 94
[2019-07-01] MEDS: lurasidone 20 mg Tablet 40 MG PO (20:34)
[2019-07-01] MEDS: gabapentin 300 mg Capsule 600 MG PO (20:35)
[2019-07-01] MEDS: OLANZapine ODT 5 MG TABLET PO (20:35)
[2019-07-02] MEDS: amlodipine 10 mg Tablet PO (08:19)
[2019-07-02] MEDS: ARIPiprazole 10 mg Tablet 5 MG PO (08:19)
[2019-07-02] MEDS: metoprolol tartrate 25 mg Tablet PO ×2 (08:19→18:02)
[2019-07-02] MEDS: lurasidone 80 mg Tablet PO (08:19)
[2019-07-02] MEDS: hyDRALAzine 25 mg Tablet PO ×3 (08:19→21:05)
[2019-07-02] MEDS: divalproex DR 500 mg Tablet PO ×2 (08:19→18:02)
[2019-07-02] MEDS: lurasidone 20 mg Tablet PO (08:19)
[2019-07-02] MEDS: hydroCHLOROthiazide 25 mg Tablet PO (08:20)
--- NOTE | 2019-07-02 11:42 | PM.NPN ---
Subjective NPU Subjective: Interval history: Ced presents today reporting that he is not feeling great, but what this technical writer is seeing as a pattern of him being fairly lethargic and tired in the period of time right when he wakes up, possibly having significant boredom, and laying around and feeling more tired as he lays around. Later on he was up more and less lethargic and not reporting feeling crappy. He is probably struggling with the change in the routine with the social distancing we are having to institute on the unit. He continues to endorse a willingness with work with the team to figure out an appropriate discharge plan. Mental Status Exam MSE Comments: This is an overweight, older, white male, with adequate dress and grooming, and limited eye contact. No abnormal movements, except for psychomotor retardation. Cooperative with exam in no acute distress. Speech was slightly decreased rate and volume. Mood described as tired; affect congruent. Thought process, more organized. Thought content: patient denied any suicidal or homicidal ideation, there were no delusions reported and significant decrease in the paranoia, patient denied any auditory or visual hallucinations. Attention and concentration are improving, and memory is still unreliable, but none were formally tested. He is alert and oriented times person and place. Insight and judgment are improving. Vitals/I&O/Wt Last Vital Signs Temp 98.1 F 07/01/19 19:35 Pulse 90 07/01/19 19:35 Resp 18 07/01/19 19:35 BP 152/95 07/01/19 19:35 Pulse Ox 94 07/01/19 19:35 Data NPU : 06/30/19 12:35 06/30/19 12:35 A&P Additional A&P Information (1) Bipolar I disorder with mood-congruent psychotic features: This is a 59-year-old white male with a long history of bipolar disorder who presents with some improvements with his amaya on a 21-day hold. 90 day hold paperwork submitted. 1. Continue current medications. Will consider reduction in Geodon dose. 2. Encourage individual, group and milieu therapy. 3. Continue to 15-minute checks for safety. (2) Acute psychosis: Involuntary Hold Information 96 Hour Hold: 96 Hour Involuntary Admission: Yes 96 Hour Hold Ending Date: 06/14/19 96 Hour Hold Ending Time: 16:30 21 Day Hold: 21 Day Hold Start Date: 06/14/19 21 Day Hold Start Time: 14:32 21 Day Hold End Date: 07/06/19 21 Day Hold End Time: 14:32 Attestations NPU Medical Necessity Statement*: Inpatient hospitalization is medically necessary and the clinically appropriate intervention at this time. We will adjust and add medications as indicated. Likely length of stay 5 to 7 days. Coding Level of Care Code Acute Textile Machinery Instructor for Jhonatan Bajwa
[2019-07-02 13:28] VITALS: BP 148/88; PULSE 80; RESP 19; TEMP 36.7; O2SAT 97
[2019-07-02 20:24] VITALS: BP 123/81; PULSE 55; RESP 18; TEMP 36.6; O2SAT 93
[2019-07-02] MEDS: OLANZapine ODT 5 MG TABLET PO (21:04)
[2019-07-02] MEDS: lurasidone 20 mg Tablet 40 MG PO (21:04)
[2019-07-02] MEDS: gabapentin 300 mg Capsule 600 MG PO (21:05)
[2019-07-02] MEDS: acetaminophen 325 mg Tablet 650 MG PO (21:33)
[2019-07-03] MEDS: acetaminophen 325 mg Tablet 650 MG PO ×4 (08:36→21:02)
[2019-07-03] MEDS: lurasidone 20 mg Tablet PO (08:39)
[2019-07-03] MEDS: lurasidone 80 mg Tablet PO (08:39)
[2019-07-03] MEDS: hydroCHLOROthiazide 25 mg Tablet PO (08:39)
[2019-07-03] MEDS: amlodipine 10 mg Tablet PO (08:39)
[2019-07-03] MEDS: hyDRALAzine 25 mg Tablet PO ×3 (08:40→20:52)
[2019-07-03] MEDS: divalproex DR 500 mg Tablet PO ×2 (08:40→17:54)
[2019-07-03] MEDS: metoprolol tartrate 25 mg Tablet PO ×2 (08:40→17:54)
[2019-07-03] MEDS: ARIPiprazole 10 mg Tablet 5 MG PO (08:40)
[2019-07-03 08:42] VITALS: BP 122/77; PULSE 64; RESP 16
[2019-07-03 13:09] VITALS: BP 122/78; PULSE 89; RESP 19; TEMP 36.7; O2SAT 98
--- NOTE | 2019-07-03 14:01 | P.PN_ITS ---
Subjective NPU Subjective: Interval history: Ced presents today doing a little bit better than yesterday, seeming less lethargic. However, he continues to be in bed a lot. He is reporting that he is feeling a little less like that today. We discussed the possibility of taking a little bit off of his Geodon at night to see if that is too much. But right now, it seems as if he is maybe recovering and adjusting to it so we discussed the fact that we might just continue to watch it. He reports that he is eating okay and sleeping fine. We talked a little about being from [place] and reminiscing with this senior mortgage underwriter about things [place], given that I am from [place] as well. Ultimately, he reported that he is feeling better overall. Mental Status Exam MSE Comments: This is an overweight, older, white male, with adequate dress, grooming, and eye contact. No abnormal movements. Cooperative with exam in no acute distress. Speech was normal rate and volume. Mood described as better; affect congruent. Thought process, organized. Thought content: patient denied any suicidal or homicidal ideation, there were no delusions reported or noted, patient denied any auditory or visual hallucinations. Attention, concentration, and memory appeared intact but were not formally tested. Alert and oriented times three. Insight and judgment are improving. Vitals/I&O/Wt Last Vital Signs Temp 97.8 F 07/02/19 20:24 Pulse 55 L 07/02/19 20:24 Resp 18 07/02/19 20:24 BP 123/81 07/02/19 20:24 Pulse Ox 93 07/02/19 20:24 Weight last 48 hrs Weight 85.842 kg Data NPU : 06/30/19 12:35 06/30/19 12:35 A&P Additional A&P Information (1) Bipolar I disorder with mood-congruent psychotic features: This is a 59-year-old white male with a long history of bipolar disorder who presents with some improvements with his amaya on a 21-day hold. 90 day hold paperwork submitted. some lethargy with medication. 1. Continue current medications. Will consider reduction in Geodon dose. 2. Encourage individual, group and milieu therapy. 3. Continue to 15-minute checks for safety. 4. Will have Dr. Fine consider change of dosing with his fresh evaluation. (2) Acute psychosis: Involuntary Hold Information 96 Hour Hold: 96 Hour Involuntary Admission: Yes 96 Hour Hold Ending Date: 06/14/19 96 Hour Hold Ending Time: 16:30 21 Day Hold: 21 Day Hold Start Date: 06/14/19 21 Day Hold Start Time: 14:32 21 Day Hold End Date: 07/06/19 21 Day Hold End Time: 14:32 Attestations NPU Medical Necessity Statement*: Inpatient hospitalization is medically necessary and the clinically appropriate intervention at this time. We will adjust and add medications as indicated. Likely length of stay 5 to 7 days. Coding Level of Care Code Acute Mining Support Worker for Jhonatan Bajwa
[2019-07-03] MEDS: nicotine 21 mg Patch 1 PATCH TRANSDERMA (15:36)
[2019-07-03] MEDS: lurasidone 20 mg Tablet 40 MG PO (20:52)
[2019-07-03] MEDS: gabapentin 300 mg Capsule 600 MG PO (20:52)
[2019-07-03] MEDS: OLANZapine ODT 5 MG TABLET PO (20:52)
[2019-07-03] MEDS: doxepin 50 mg Capsule PO (20:53)
[2019-07-03 20:56] VITALS: BP 142/86; PULSE 74; RESP 21; TEMP 37.2; O2SAT 98
[2019-07-04 06:00] VITALS: RESP 22
[2019-07-04] MEDS: lurasidone 20 mg Tablet PO (08:54)
[2019-07-04] MEDS: hyDRALAzine 25 mg Tablet PO ×3 (08:54→21:27)
[2019-07-04] MEDS: divalproex DR 500 mg Tablet PO ×2 (08:54→17:40)
[2019-07-04] MEDS: lurasidone 80 mg Tablet PO (08:54)
[2019-07-04] MEDS: hydroCHLOROthiazide 25 mg Tablet PO (08:54)
[2019-07-04] MEDS: ARIPiprazole 10 mg Tablet 5 MG PO (08:54)
[2019-07-04] MEDS: amlodipine 10 mg Tablet PO (08:54)
[2019-07-04] MEDS: metoprolol tartrate 25 mg Tablet PO ×2 (08:54→17:40)
[2019-07-04 14:00] VITALS: BP 119/81; PULSE 70; RESP 20; TEMP 36.8; O2SAT 99
--- NOTE | 2019-07-04 15:45 | P.PN_ITS ---
Subjective NPU Subjective: Interval history: This is my first meeting with the patient since his admission. He is thinking much more clearly and logically. He continues to be limited cognitively but is goal directed without flight of ideas or loose associations. He has no complaints other than not knowing where to go when he leaves here. Medications: Medication Review Details: Current Medications Acetaminophen (Tylenol) 650 mg PO Q4H PRN PRN Reason: MILD PAIN Last Admin: 06/10/19 21:46 Dose: 650 mg Documented by: Amlodipine Besylate (Norvasc) 10 mg PO DAILY [facility] Last Admin: 06/14/19 09:43 Dose: 10 mg Documented by: Benztropine Mesylate (Cogentin) 1 mg PO BID PRN PRN Reason: Mild Extrapyramidal symptoms Camphor/Menthol/Phenol (Blistex) 1 applic TOPICAL Q1H PRN PRN Reason: DRYNESS Clonidine HCl (Catapres) 0.1 mg PO Q12H PRN PRN Reason: SBP >160 Clonidine HCl (Catapres) 0.1 mg PO Q4H PRN PRN Reason: DIASTOLIC BLOOD PRESSURE Diphenhydramine HCl (Benadryl) 50 mg IM ONCE PRN PRN Reason: Severe Extrapyramidal Symptoms Last Admin: 06/14/19 06:32 Dose: 50 mg Documented by: Diphenhydramine HCl (Benadryl) 50 mg IM Q4H PRN PRN Reason: Severe Aggression Divalproex Sodium (Depakote Dr) 500 mg PO BID [facility] Last Admin: 06/14/19 09:43 Dose: 500 mg Documented by: Doxepin HCl (Sinequan) 50 mg PO BEDTIME PRN PRN Reason: insomnia Last Admin: 06/14/19 01:01 Dose: 50 mg Documented by: Gabapentin (Neurontin) 600 mg PO BEDTIME [facility] Last Admin: 06/13/19 22:48 Dose: Not Given Documented by: Haloperidol Lactate (Haldol Inj) 5 mg IM Q4H PRN PRN Reason: Severe Aggression Last Admin: 06/14/19 06:30 Dose: 5 mg Documented by: Hydralazine HCl (Apresoline) 50 mg PO TID [facility] Last Admin: 06/14/19 15:09 Dose: 50 mg Documented by: Hydrochlorothiazide (Hctz) 25 mg PO DAILY [facility] Last Admin: 06/14/19 09:44 Dose: 25 mg Documented by: Loperamide HCl (Imodium Capsule) 2 mg PO Q6H PRN PRN Reason: DIARRHEA Lorazepam (Ativan) 2 mg IM Q4H PRN PRN Reason: Severe Aggression Last Admin: 06/14/19 06:34 Dose: 2 mg Documented by: Lorazepam (Ativan) 0.5 mg PO Q4H PRN PRN Reason: ANXIETY Last Admin: 06/10/19 21:49 Dose: 0.5 mg Documented by: Metoprolol Tartrate (Lopressor) 25 mg PO BID [facility] Last Admin: 06/14/19 09:43 Dose: 25 mg Documented by: Nicotine (Nicoderm 21 Mg Patch) 1 patch TRANSDERMA DAILY PRN PRN Reason: NICOTINE WITHDRAWAL Nicotine Polacrilex (Nicorette) 2 mg BUCCAL Q2H PRN PRN Reason: NICOTINE WITHDRAWAL Last Admin: 06/10/19 16:52 Dose: 2 mg Documented by: Olanzapine (Zyprexa Zydis) 5 mg PO Q4H PRN PRN Reason: Agitation/Psychosis Last Admin: 06/12/19 21:46 Dose: 5 mg Documented by: Olanzapine (Zyprexa Zydis) 5 mg PO BEDTIME [facility] Last Admin: 06/14/19 01:02 Dose: 5 mg Documented by: Ondansetron HCl (Zofran) 4 mg PO Q6H PRN PRN Reason: NAUSEA AND VOMITING Ziprasidone (Geodon) 20 mg PO Q4H PRN PRN Reason: AGITATION Last Admin: 06/13/19 15:55 Dose: 20 mg Documented by: Ziprasidone (Geodon) 80 mg PO DAILY [facility] Last Admin: 06/14/19 09:44 Dose: 80 mg Documented by: Mental Status Exam MSE Comments: This is an overweight, older, white male, with adequate dress, grooming, and eye contact. No abnormal movements. Cooperative with exam in no acute distress. Speech was normal rate and volume. Mood described as better; affect congruent. Thought process, organized. Thought content: patient denied any suicidal or homicidal ideation, there were no delusions reported or noted, patient denied any auditory or visual hallucinations. Attention, concentration, and memory appeared intact but were not formally tested. Alert and oriented times three. Insight and judgment are improving. Cognition: Patient Appearance: Disheveled/Poor Hygiene Level of Consciousness: Disoriented and Drowsy Patient Cognition Impaired: Yes Ability to Follow Directions: Poor Patient Orientation (long list): Person, Name and Age Comprehension Ability: Moderate Impairment Hallucination Type: None Delusion Description: Grandiose Thought Process: Loose Associations Affect: Affect Description: Appropriate and Calm Depressive Symptoms: Increased Irritability Behavior: Patient Behavior: Cooperative Attitude Description: Aggressive, Resistive, Belligerent and Guarded Emotional State Description: Irritable and Hostile Speech Pattern: Clear Voice Loudness: Severely Loud Restraint Use Risk: Aggression, Agitation, Distruptive Behavior, Delusions, Mental Disorder, Psych Facility Resident, Psychotropic Drug Use and Treatment Interference Vitals/I&O/Wt Last Vital Signs Temp 98.9 F 07/03/19 20:56 Pulse 74 07/03/19 20:56 Resp 22 H 07/04/19 06:00 BP 142/86 07/03/19 20:56 Pulse Ox 98 07/03/19 20:56 Weight last 48 hrs Weight 85.842 kg Data NPU : 06/30/19 12:35 06/30/19 12:35 A&P Assessment and plan (1) Bipolar I disorder with mood-congruent psychotic features: This is a 59-year-old white male with a long history of bipolar disorder who presents with alexsander amaya on a 21-day hold. 1. Continue current medications. 2. Labs: depakote level and Hgb A1C 2. Encourage individual, group and milieu therapy. 3. Continue to 15-minute checks for safety. Status: Acute (2) Acute psychosis: Status: Acute Additional A&P Information (1) Bipolar I disorder with mood-congruent psychotic features: This is a 59-year-old white male with a long history of bipolar disorder who presents with some improvements with his amaya on a 21-day hold. 90 day hold paperwork submitted. some lethargy with medication. 1. Continue current medications. Will consider reduction in Geodon dose. 2. Encourage individual, group and milieu therapy. 3. Continue to 15-minute checks for safety. 4. Will have Dr. Fine consider change of dosing with his fresh evaluation. (2) Acute psychosis: Involuntary Hold Information 96 Hour Hold: 96 Hour Involuntary Admission: Yes 96 Hour Hold Ending Date: 06/14/19 96 Hour Hold Ending Time: 16:30 21 Day Hold: 21 Day Hold Start Date: 06/14/19 21 Day Hold Start Time: 14:32 21 Day Hold End Date: 07/06/19 21 Day Hold End Time: 14:32 Attestations NPU Medical Necessity Statement*: Patient will remain in the hospital another 3-4 nights while we establish safety of his current medications. Coding Level of Care Code Acute Pipe And Test Supervisor for Jhonatan Bajwa Diagnoses Bipolar I disorder with mood-congruent psychotic features F31.9 Acute psychosis F23
[2019-07-04 21:10] VITALS: BP 165/101; PULSE 64; RESP 24; TEMP 36.8; O2SAT 94
[2019-07-04] MEDS: lurasidone 20 mg Tablet 40 MG PO (21:26)
[2019-07-04] MEDS: OLANZapine ODT 5 MG TABLET PO (21:26)
[2019-07-04 21:27] VITALS: BP 165/101
[2019-07-04] MEDS: cloNIDine 0.1 mg Tablet PO (21:27)
--- NOTE | 2019-07-04 21:27 | PC.NURSE ---
Pt given scheduled apresoline, Latuda, and zyprexa as well as PRN clonidine for BP of 165/101.
[2019-07-05 06:00] VITALS: RESP 17
[2019-07-05 08:44] LABS: Valproic Acid Level 38.2 mcg/mL (50-100)
[2019-07-05] MEDS: ARIPiprazole 10 mg Tablet 5 MG PO (09:04)
[2019-07-05] MEDS: metoprolol tartrate 25 mg Tablet PO ×2 (09:04→16:55)
[2019-07-05] MEDS: hyDRALAzine 25 mg Tablet PO ×3 (09:04→20:11)
[2019-07-05] MEDS: amlodipine 10 mg Tablet PO (09:04)
[2019-07-05] MEDS: divalproex DR 500 mg Tablet PO (09:04)
[2019-07-05] MEDS: lurasidone 80 mg Tablet PO (09:04)
[2019-07-05] MEDS: lurasidone 20 mg Tablet PO (09:04)
[2019-07-05] MEDS: hydroCHLOROthiazide 25 mg Tablet PO (09:04)
[2019-07-05 09:38] LABS: Estmated Average Glucose 120; Hemoglobin A1C 5.8 % (4.0-6.0)
--- NOTE | 2019-07-05 12:39 | PM.NPN ---
Subjective NPU Subjective: Interval history: Pt without complaint. Still has not reasonable discharge destination that would be safe. Medications: Medication Review Details: Pt is currently being prescribed five different mood stabilizers and four diferent antihypertenisves. Laboratory Tests 07/05/19 07/05/19 08:14 08:14 Estimat Average Gl ucose 120 Hemoglobin A1c 5.8 Valproic Acid 38.2 L Mental Status Exam MSE Comments: This is an overweight, older, white male, with adequate dress, grooming, and eye contact. No abnormal movements. Cooperative with exam in no acute distress. Speech was normal rate and volume. Mood described as better; affect congruent. Thought process, organized. Thought content: patient denied any suicidal or homicidal ideation, there were no delusions reported or noted, patient denied any auditory or visual hallucinations. Attention, concentration, and memory appeared intact but were not formally tested. Alert and oriented times three. Insight and judgment are improving. Cognition: Patient Appearance: Disheveled/Poor Hygiene Level of Consciousness: Disoriented and Drowsy Patient Cognition Impaired: Yes Ability to Follow Directions: Poor Patient Orientation (long list): Person, Name and Age Comprehension Ability: Moderate Impairment Hallucination Type: None Delusion Description: Grandiose Thought Process: Loose Associations Affect: Affect Description: Appropriate and Calm Depressive Symptoms: Increased Irritability Behavior: Patient Behavior: Appropriate and Cooperative Attitude Description: Aggressive, Resistive, Belligerent and Guarded Emotional State Description: Irritable and Hostile Speech Pattern: Appropriate and Clear Voice Loudness: Severely Loud Restraint Use Risk: Aggression, Agitation, Distruptive Behavior, Delusions, Mental Disorder, Psych Facility Resident, Psychotropic Drug Use and Treatment Interference Vitals/I&O/Wt Last Vital Signs Temp 98.3 F 07/04/19 21:10 Pulse 64 07/04/19 21:10 Resp 17 07/05/19 06:00 BP 165/101 07/04/19 21:27 Pulse Ox 94 07/04/19 21:10 Data NPU : 06/30/19 12:35 06/30/19 12:35 A&P Assessment and plan (1) Bipolar I disorder with mood-congruent psychotic features: This is a 59-year-old white male with a long history of bipolar disorder who presents with alexsander amaya on a 21-day hold. 1. Continue current medications. 2. Labs: depakote level and Hgb A1C 2. Encourage individual, group and milieu therapy. 3. Continue to 15-minute checks for safety. Status: Acute (2) Acute psychosis: Status: Acute Additional A&P Information (1) Bipolar I disorder with mood-congruent psychotic features: This is a 59-year-old white male with a long history of bipolar disorder who presents with some improvements with his amaya on a 21-day hold. 90 day hold paperwork submitted. some lethargy with medication. 1. Hospital day #27: HgB A1C not indicative of diabetic issues. Depakote level is subtherapeutic. Will increase to [address] full dose at bedtime for improved ocmpliance following discharge. Pt is on four different mood stabilizers: stop Abilify. Stop geodon as he is not receiving it and it is just prn; will consider simplification of Latuda if this is tolerated. Pt is on four different antihypertensives. Stop prn clonidine and consider other consolidations if possible. 2. Encourage individual, group and milieu therapy. 3. Continue to 15-minute checks for safety. 4. Will have Dr. Fine consider change of dosing with his fresh evaluation. (2) Acute psychosis: Involuntary Hold Information 96 Hour Hold: 96 Hour Involuntary Admission: Yes 96 Hour Hold Ending Date: 06/14/19 96 Hour Hold Ending Time: 16:30 21 Day Hold: 21 Day Hold Start Date: 06/14/19 21 Day Hold Start Time: 14:32 21 Day Hold End Date: 07/06/19 21 Day Hold End Time: 14:32 Attestations NPU Medical Necessity Statement*: Patient will remain in the hospital another 4-5 nights until discharge planning will meet safety standards. Coding Level of Care Code Acute Mobile Ui Designer for Jhonatan Bajwa Diagnoses Bipolar I disorder with mood-congruent psychotic features F31.9 Acute psychosis F23
[2019-07-05 12:57] VITALS: BP 101/65; PULSE 61; RESP 18; TEMP 36.7; O2SAT 98
[2019-07-05] MEDS: nicotine 21 mg Patch 1 PATCH TRANSDERMA (15:47)
[2019-07-05] MEDS: lurasidone 20 mg Tablet 40 MG PO (20:10)
[2019-07-05] MEDS: OLANZapine ODT 5 MG TABLET PO (20:10)
[2019-07-05] MEDS: divalproex DR 500 mg Tablet 1500 MG PO (20:11)
[2019-07-05] MEDS: acetaminophen 325 mg Tablet 650 MG PO (20:37)
--- NOTE | 2019-07-05 20:44 | PC.NURSE ---
PT GIVEN SCHEDULED DEPAKOTE, APRESOLINE, LATUDA, AND ZYPEXA AT 2010, AND TYLENOL AT 2043 FOR LEG PAIN.
[2019-07-05 21:18] VITALS: BP 130/83; PULSE 60; RESP 20; TEMP 36.8; O2SAT 95
[2019-07-06] MEDS: acetaminophen 325 mg Tablet 650 MG PO ×2 (05:39→21:18)
--- NOTE | 2019-07-06 05:41 | PC.NURSE ---
pt given tylenol for siatic pain
[2019-07-06 06:00] VITALS: BP 141/95; PULSE 60; RESP 20; TEMP 36.4; O2SAT 99
[2019-07-06] MEDS: lurasidone 80 mg Tablet PO (08:56)
[2019-07-06] MEDS: lurasidone 20 mg Tablet PO (08:56)
[2019-07-06] MEDS: amlodipine 10 mg Tablet PO (08:56)
[2019-07-06] MEDS: hydroCHLOROthiazide 25 mg Tablet PO (08:56)
[2019-07-06] MEDS: hyDRALAzine 25 mg Tablet PO ×3 (08:56→21:16)
[2019-07-06] MEDS: metoprolol tartrate 25 mg Tablet PO ×2 (08:56→17:44)
--- NOTE | 2019-07-06 10:25 | P.PN_ITS ---
Subjective NPU Subjective: Interval history: Pt without complaint. Patient awaiting discharge plan.. Mental Status Exam MSE Comments: This is an overweight, older, white male, with adequate dress, grooming, and eye contact. No abnormal movements. Cooperative with exam in no acute distress. Speech was normal rate and volume. Mood described as good; affect congruent. Thought process, organized. Thought content: patient denied any suicidal or homicidal ideation, there were no delusions reported or noted, patient denied any auditory or visual hallucinations. Attention, concentration, and memory appeared intact but were not formally tested. Alert and oriented times three. Insight and judgment are improving. Cognition: Patient Appearance: Appears Older than Age Level of Consciousness: Disoriented and Drowsy Patient Cognition Impaired: Yes Ability to Follow Directions: Poor Patient Orientation (long list): Person, Name and Age Comprehension Ability: Moderate Impairment Hallucination Type: None Delusion Description: Grandiose Thought Process: Loose Associations Affect: Affect Description: Appropriate and Labile Depressive Symptoms: Increased Irritability Behavior: Patient Behavior: Appropriate and Cooperative Attitude Description: Aggressive, Resistive, Belligerent and Guarded Emotional State Description: Irritable and Hostile Speech Pattern: Appropriate and Clear Voice Loudness: Severely Loud Restraint Use Risk: Aggression, Agitation, Distruptive Behavior, Delusions, Mental Disorder, Psych Facility Resident, Psychotropic Drug Use and Treatment Interference Vitals/I&O/Wt Last Vital Signs Temp 97.6 F 07/06/19 06:00 Pulse 60 07/06/19 06:00 Resp 20 H 07/06/19 06:00 BP 141/95 07/06/19 06:00 Pulse Ox 99 07/06/19 06:00 Data NPU : 06/30/19 12:35 06/30/19 12:35 A&P Assessment and plan (1) Bipolar I disorder with mood-congruent psychotic features: This is a 59-year-old white male with a long history of bipolar disorder who originally presented in a manic state requiring a 21 day hold. That seems to have resolved but he has no safe discharge plan at this time. 1. Continue current medications. 2. Encourage individual, group and milieu therapy. 3. Continue to 15-minute checks for safety. Status: Acute (2) Acute psychosis: Status: Acute Additional A&P Information (1) Bipolar I disorder with mood-congruent psychotic features: This is a 59-year-old white male with a long history of bipolar disorder who presents with some improvements with his amaya on a 21-day hold. 90 day hold paperwork submitted. some lethargy with medication. 1. Hospital day #27: HgB A1C not indicative of diabetic issues. Depakote level is subtherapeutic. Will increase to [address] full dose at bedtime for improved ocmpliance following discharge. Pt is on four different mood stabilizers: stop Abilify. Stop geodon as he is not receiving it and it is just prn; will consider simplification of Latuda if this is tolerated. Pt is on four different antihypertensives. Stop prn clonidine and consider other consolidations if possible. Hospital day #28: no signficant problems after making the medication changes above. Plan: Will change Latuda to 120 mg at supper only. 2. Encourage individual, group and milieu therapy. 3. Continue to 15-minute checks for safety. (2) Acute psychosis: Involuntary Hold Information 96 Hour Hold: 96 Hour Involuntary Admission: Yes 96 Hour Hold Ending Date: 06/14/19 96 Hour Hold Ending Time: 16:30 21 Day Hold: 21 Day Hold Start Date: 06/14/19 21 Day Hold Start Time: 14:32 21 Day Hold End Date: 07/06/19 21 Day Hold End Time: 14:32 Attestations NPU Medical Necessity Statement*: patient remained in the hospital another 2 nights while placement is required and we assess efficacy and tolerability of rakesh kiersten's medication changes. Coding Level of Care Code Acute Secretary [employer] Police for Jhonatan Bajwa Diagnoses Bipolar I disorder with mood-congruent psychotic features F31.9 Acute psychosis F23
[2019-07-06 14:00] VITALS: BP 119/79; PULSE 68; RESP 18; TEMP 36.8; O2SAT 95
[2019-07-06] MEDS: lurasidone 80 mg Tablet 120 MG PO (17:44)
[2019-07-06 20:04] VITALS: BP 125/81; PULSE 64; RESP 19; TEMP 36.8; O2SAT 97
[2019-07-06] MEDS: OLANZapine ODT 5 MG TABLET PO (21:15)
[2019-07-06] MEDS: divalproex DR 500 mg Tablet 1500 MG PO (21:15)
[2019-07-07 06:00] VITALS: BP 140/94; PULSE 61; RESP 16; TEMP 36.4; O2SAT 99
[2019-07-07] MEDS: metoprolol tartrate 25 mg Tablet PO ×2 (08:00→17:15)
[2019-07-07] MEDS: hyDRALAzine 25 mg Tablet PO ×3 (08:00→20:34)
[2019-07-07] MEDS: amlodipine 10 mg Tablet PO (08:00)
[2019-07-07] MEDS: hydroCHLOROthiazide 25 mg Tablet PO (08:00)
--- NOTE | 2019-07-07 10:30 | P.PN_ITS ---
Subjective NPU Subjective: Interval history: Jocelyn complains of being too sedated during the day. He wants to find a place to go so that he can be released. Medications: Medication Review Details: Vital Signs Temp Pulse Resp BP Pulse Ox 07/07/19 06:00 97.5 F L 61 16 140/94 99 07/06/19 20:04 98.3 F 64 19 H 125/81 97 07/06/19 14:00 98.3 F 68 18 119/79 95 Laboratory Tests 07/05/19 07/05/19 08:14 08:14 Estimat Average Gl ucose 120 Hemoglobin A1c 5.8 Valproic Acid 38.2 L Mental Status Exam MSE Comments: This is an overweight, older, white male, with adequate dress, grooming, and eye contact. No abnormal movements. Cooperative with exam in no acute distress. Speech was normal rate and volume. Mood described as good; affect congruent. Thought process, organized. Thought content: patient denied any suicidal or homicidal ideation, there were no delusions reported or noted, patient denied any auditory or visual hallucinations. Attention, concentration, and memory appeared intact but were not formally tested. Alert and oriented times three. Insight and judgment are improving. Cognition: Patient Appearance: Appears Older than Age Patient Cognition Impaired: Yes Ability to Follow Directions: Poor Patient Orientation (long list): Person, Name and Age Comprehension Ability: Moderate Impairment Hallucination Type: None Delusion Description: Grandiose Affect: Affect Description: Appropriate Depressive Symptoms: Increased Irritability Behavior: Patient Behavior: Appropriate Emotional State Description: Irritable and Hostile Speech Pattern: Appropriate Restraint Use Risk: Aggression, Agitation, Distruptive Behavior, Delusions, Mental Disorder, Psych Facility Resident, Psychotropic Drug Use and Treatment Interference Vitals/I&O/Wt Last Vital Signs Temp 97.5 F L 07/07/19 06:00 Pulse 61 07/07/19 06:00 Resp 16 07/07/19 06:00 BP 140/94 07/07/19 06:00 Pulse Ox 99 07/07/19 06:00 Data NPU : 06/30/19 12:35 06/30/19 12:35 A&P Assessment and plan (1) Bipolar I disorder with mood-congruent psychotic features: This is a 59-year-old white male with a long history of bipolar disorder who originally presented in a manic state requiring a 21 day hold. That seems to have resolved but he has no safe discharge plan at this time. 1. 2. Encourage individual, group and milieu therapy. 3. Continue to 15-minute checks for safety. Status: Acute (2) Acute psychosis: Status: Acute Additional A&P Information (1) Bipolar I disorder with mood-congruent psychotic features: This is a 59-year-old white male with a long history of bipolar disorder who presents with some improvements with his amaya on a 21-day hold. 90 day hold paperwork submitted. some lethargy with medication. 1. Hospital day #27: HgB A1C not indicative of diabetic issues. Depakote level is subtherapeutic. Will increase to [address] full dose at bedtime for improved ocmpliance following discharge. Pt is on four different mood stabilizers: stop Abilify. Stop geodon as he is not receiving it and it is just prn; will consider simplification of Latuda if this is tolerated. Pt is on four different antihypertensives. Stop prn clonidine and consider other consolidations if possible. Hospital day #28: no signficant problems after making the medication changes above. Plan: Will change Latuda to 120 mg at supper only. HD#29 Pt excessively fatigued. No decompensation after recent medication changes. Will check new depakote level and stop he olanzapine to try and deal with daytime fatigue. 2. Encourage individual, group and milieu therapy. 3. Continue to 15-minute checks for safety. (2) Acute psychosis: Involuntary Hold Information 2 96 Hour Hold: 96 Hour Involuntary Admission: Yes 96 Hour Hold Ending Date: 06/14/19 96 Hour Hold Ending Time: 16:30 21 Day Hold: 21 Day Hold Start Date: 06/14/19 21 Day Hold Start Time: 14:32 21 Day Hold End Date: 07/06/19 21 Day Hold End Time: 14:32 Attestations NPU Medical Necessity Statement*: Patient to remain in the hospital another 2-3 midnights while we assess his tolerance of the change in Depakote. Coding Level of Care Code Acute Medical Instrument Technician for Jhonatan Bajwa Diagnoses Bipolar I disorder with mood-congruent psychotic features F31.9 Acute psychosis F23
[2019-07-07 14:00] VITALS: BP 131/87; PULSE 63; RESP 20; TEMP 36.6; O2SAT 99
[2019-07-07] MEDS: lurasidone 80 mg Tablet 120 MG PO (17:15)
[2019-07-07] MEDS: divalproex DR 500 mg Tablet 1500 MG PO (20:34)
[2019-07-07 20:46] VITALS: BP 132/88; PULSE 65; RESP 18; TEMP 36.6; O2SAT 97
[2019-07-08 08:15] LABS: Valproic Acid Level 97.8 mcg/mL (50-100)
--- NOTE | 2019-07-08 08:29 | P.PN_ITS ---
Subjective NPU Subjective: Interval history: Jocelyn no longer complaioning fo being sedated. However, he has multiple other complaints regarding barriers to his discharge and financial matters outside of this hospital stay. VPA=98.7 on 1500 mg of Depakote at hs. Medications: Medication Review Details: Vital Signs Temp Pulse Resp BP Pulse Ox 07/07/19 06:00 97.5 F L 61 16 140/94 99 07/06/19 20:04 98.3 F 64 19 H 125/81 97 07/06/19 14:00 98.3 F 68 18 119/79 95 Laboratory Tests 07/05/19 07/05/19 08:14 08:14 Estimat Average Gl ucose 120 Hemoglobin A1c 5.8 Valproic Acid 38.2 L Mental Status Exam MSE Comments: Mental Status Exam: pt is slightly more irritable and perseverates on the problems that he is unable to resolve while in the the ho spital. Many of his complaints are reasonable and will be difficult to resolve. Appearance: hygiene is fair; no gross neurological deficits., gait is unremarkable; AIMS=0 Speech: Speech is of normal rate and rhythm and easily understood. Thought processes: Thought processes are abstract. Judgment is adequate for safety. Associations: intact Psychotic processes: There is no indication of guarding or paranoia. There is no attention to the internal stimuli. Auditory and visual hallucinations are denied. Judgment: Insight is fair. Problem solving skills are adequate for safety. Orientation: The patient is oriented to person, place time and situation. Memory: no deficits noted in immediate, intermediate, or remote spheres. Attention: The patient is alert and interpersonally engaged. Language: Verbalizations are coherent. Fund of knowledge: Fund of knowledge is adequate. Affect/Mood: Affect is irritable with a self reported euthymic mood. He denied suicidal ideation Affective range is appropriate. Psychosis: perception unimpaired except through cognitive distortion; reality testing intact. Cognition: Patient Cognition Impaired: Yes Ability to Follow Directions: Poor Hallucination Type: None Affect: Affect Description: Appropriate Depressive Symptoms: Increased Irritability Behavior: Patient Behavior: Appropriate Attitude Description: Resistive Emotional State Description: Irritable Speech Pattern: Appropriate Voice Loudness: Severely Loud Restraint Use Risk: Aggression, Agitation, Distruptive Behavior, Delusions, Mental Disorder, Psych Facility Resident, Psychotropic Drug Use and Treatment Interference Vitals/I&O/Wt Last Vital Signs Temp 97.9 F 07/07/19 20:46 Pulse 65 07/07/19 20:46 Resp 18 07/07/19 20:46 BP 132/88 07/07/19 20:46 Pulse Ox 97 07/07/19 20:46 Data NPU : 06/30/19 12:35 06/30/19 12:35 A&P Assessment and plan (1) Bipolar I disorder with mood-congruent psychotic features: This is a 59-year-old white male with a long history of bipolar disorder who originally presented in a manic state requiring a 21 day hold. That seems to have resolved but he has no safe discharge plan at this time. 1. 2. Encourage individual, group and milieu therapy. 3. Continue to 15-minute checks for safety. Status: Acute (2) Acute psychosis: Status: Acute Additional A&P Information (1) Bipolar I disorder with mood-congruent psychotic features: This is a 59-year-old white male with a long history of bipolar disorder who presents with some improvements with his amaya on a 21-day hold. 90 day hold paperwork submitted. some lethargy with medication. 1. Hospital day #27: HgB A1C not indicative of diabetic issues. Depakote level is subtherapeutic. Will increase to [address] full dose at bedtime for improved ocmpliance following discharge. Pt is on four different mood stabilizers: stop Abilify. Stop geodon as he is not receiving it and it is just prn; will consider simplification of Latuda if this is tolerated. Pt is on four different antihypertensives. Stop prn clonidine and consider other consolidations if possible. Hospital day #28: no signficant problems after making the medication changes above. Plan: Will change Latuda to 120 mg at supper only. HD#29 Pt excessively fatigued. No decompensation after recent medication changes. Will check new depakote level and stop he olanzapine to try and deal with daytime fatigue. HD#30 Valproic acid level =97.8 on 1500 mg of Depakote at night. Placement arriers being negotiated. 2. Encourage individual, group and milieu therapy. 3. Continue to 15-minute checks for safety. (2) Acute psychosis: Involuntary Hold Information 96 Hour Hold: 96 Hour Involuntary Admission: Yes 96 Hour Hold Ending Date: 06/14/19 96 Hour Hold Ending Time: 16:30 21 Day Hold: 21 Day Hold Start Date: 06/14/19 21 Day Hold Start Time: 14:32 21 Day Hold End Date: 07/06/19 21 Day Hold End Time: 14:32 Attestations NPU Medical Necessity Statement*: Patient to remain in the hospital 2 nights until discharge destination can be acquired. Coding Level of Care Code Acute Senior Control Systems Engineer for Jhonatan Bajwa Diagnoses Bipolar I disorder with mood-congruent psychotic features F31.9 Acute psychosis F23
[2019-07-08] MEDS: hyDRALAzine 25 mg Tablet PO ×3 (08:57→22:08)
[2019-07-08] MEDS: metoprolol tartrate 25 mg Tablet PO ×2 (08:57→17:17)
[2019-07-08] MEDS: hydroCHLOROthiazide 25 mg Tablet PO (08:57)
[2019-07-08] MEDS: amlodipine 10 mg Tablet PO (08:57)
--- NOTE | 2019-07-08 13:00 | PC.SOCIAL ---
Important Medicare Message Reviewed page 2 Important Medicare Message with patient, verbalized understanding and signed. Original to patient and copy in chart.
[2019-07-08] MEDS: lurasidone 20 mg Tablet PO (17:17)
[2019-07-08] MEDS: lurasidone 80 mg Tablet PO (17:18)
[2019-07-08 22:00] VITALS: BP 157/93; PULSE 66; RESP 16; TEMP 36.5; O2SAT 98
[2019-07-08] MEDS: divalproex DR 500 mg Tablet 1500 MG PO (22:08)
[2019-07-09 06:00] VITALS: RESP 17
[2019-07-09] MEDS: lurasidone 20 mg Tablet 60 MG PO (08:37)
[2019-07-09] MEDS: metoprolol tartrate 25 mg Tablet PO ×2 (08:37→17:27)
[2019-07-09] MEDS: hyDRALAzine 25 mg Tablet PO ×3 (08:37→21:21)
[2019-07-09] MEDS: amlodipine 10 mg Tablet PO (08:37)
[2019-07-09] MEDS: hydroCHLOROthiazide 25 mg Tablet PO (08:37)
--- NOTE | 2019-07-09 08:49 | P.PN_ITS ---
Subjective NPU Subjective: Interval history: Patient is pleased that this is the first morning he does not awaken with a headache. He continues to problem solve as to how he is going to return to [place] to live with his friend. He ruminates over a box of 2000 [employer] cars that he claims are were $30,000. He does not want to give those up. He does not want to sell them. He cannot figure out how he is going to take and take them with him to [place]. He expresses sentiments of hopelessness regarding his future. He ruminates over the loss of his fifth marriage. Then he regained else of the s taff with how he went to a toy convention in [place] and bought all the toys the first night and then resolve them before the convention was noted over and made $9000. VPA=97.8 on 1500 mg of Depakote at . Medications: Medication Review Details: Vital Signs Temp Pulse Resp BP Pulse Ox 07/07/19 06:00 97.5 F L 61 16 140/94 99 07/06/19 20:04 98.3 F 64 19 H 125/81 97 07/06/19 14:00 98.3 F 68 18 119/79 95 Laboratory Tests 07/05/19 07/08/19 08:14 Estimat Average Gl ucose 120 Hemoglobin A1c 5.8 Valproic Acid 97.8 Mental Status Exam MSE Comments: Mental Status Exam: pt continues to be mildly irritable and perseverates on the problems that he is unable to resolve while in the the hospital. Appearance: hygiene is fair; no gross neurological deficits., gait is unremarkable; AIMS=0 Speech: Speech is of normal rate and rhythm and easily understood. Thought processes: Thought processes are abstract. Judgment is adequate for safety. Associations: intact Psychotic processes: There is no indication of guarding or paranoia. There is no attention to the internal stimuli. Auditory and visual hallucinations are denied. Judgment: Insight is fair. Problem solving skills are poor but adequate for safety. Orientation: The patient is oriented to person, place time and situation. Memory: no deficits noted in immediate, intermediate, or remote spheres. Attention: The patient is alert and interpersonally engaged. Language: Verbalizations are coherent. Fund of knowledge: Fund of knowledge is adequate. Affect/Mood: Affect is irritable with a self reported euthymic mood. He denied suicidal ideation Affective range is appropriate. Psychosis: perception unimpaired except through cognitive distortion; reality testing intact. Cognition: Patient Appearance: Disheveled/Poor Hygiene Level of Consciousness: Disoriented and Drowsy Patient Cognition Impaired: Yes Ability to Follow Directions: Poor Patient Orientation (long list): Person, Name and Age Comprehension Ability: Moderate Impairment Hallucination Type: None Delusion Description: Grandiose Thought Process: Tangential Affect: Affect Description: Calm Depressive Symptoms: Increased Irritability Behavior: Patient Behavior: Appropriate Attitude Description: Resistive Emotional State Description: Irritable Speech Pattern: Clear Voice Loudness: Severely Loud Restraint Use Risk: Aggression, Agitation, Distruptive Behavior, Delusions, Mental Disorder, Psych Facility Resident, Psychotropic Drug Use and Treatment Interference Vitals/I&O/Wt Last Vital Signs Temp 97.7 F 07/08/19 22:00 Pulse 66 07/08/19 22:00 Resp 17 07/09/19 06:00 BP 157/93 07/08/19 22:00 Pulse Ox 98 07/08/19 22:00 Data NPU : 06/30/19 12:35 06/30/19 12:35 A&P Assessment and plan (1) Bipolar I disorder with mood-congruent psychotic features: This is a 59-year-old white male with a long history of bipolar disorder who originally presented in a manic state requiring a 21 day hold. That seems to have resolved but he has no safe discharge plan at this time. 1. 2. Encourage individual, group and milieu therapy. 3. Continue to 15-minute checks for safety. Status: Acute (2) Acute psychosis: Status: Acute Additional A&P Information (1) Bipolar I disorder with mood-congruent psychotic features: This is a 59-year-old white male with a long history of bipolar disorder who presents with some improvements with his amaya on a 21-day hold. 90 day hold paperwork submitted. some lethargy with medication. 1. Hospital day #27: HgB A1C not indicative of diabetic issues. Depakote level is subtherapeutic. Will increase to [address] full dose at bedtime for improved ocmpliance following discharge. Pt is on four different mood stabilizers: stop Abilify. Stop geodon as he is not receiving it and it is just prn; will consider simplification of Latuda if this is tolerated. Pt is on four different antihypertensives. Stop prn clonidine and consider other consolidations if possible. Hospital day #28: no signficant problems after making the medication changes above. Plan: Will change Latuda to 120 mg at supper only. HD#29 Pt excessively fatigued. No decompensation after recent medication changes. Will check new depakote level and stop he olanzapine to try and deal with daytime fatigue. HD#30 Valproic acid level =97.8 on 1500 mg of Depakote at night. Placement arriers being negotiated. HD#31 patient continues to display dysphoric affect that alternates with grandiosity. His problem-solving skills seem to be adequate and he is attempting to figure out what to do with his belongings and how to get to [place]. We discussed the possibility of starting an antidepressant. He admits that he feels depressed but does not want to be on an antidepressant because they almost killed me. He cannot explain that statement. Plan: Currently we are trying to adjust his Latuda dosing to minimize complexity and maximize benefit. He did not do well on single dose Latuda in the evening. And splitting the dose, pharmacy then required 2 different types of dosages in the evening. He is on a total daytime dose of 160 mg daily. We will try and change to 120 at bedtime and 40 daily and hopefully that will limit him to 2 pills to keep track of. He continues to be on 4 different medications for hypertension. 2. Encourage individual, group and milieu therapy. 3. Continue to 15-minute checks for safety. (2) Acute psychosis: Involuntary Hold Information 96 Hour Hold: 96 Hour Involuntary Admission: Yes 96 Hour Hold Ending Date: 06/14/19 96 Hour Hold Ending Time: 16:30 21 Day Hold: 21 Day Hold Start Date: 06/14/19 21 Day Hold Start Time: 14:32 21 Day Hold End Date: 07/06/19 21 Day Hold End Time: 14:32 Attestations NPU Medical Necessity Statement*: Patient will remain in the hospital another 2-3 nights while dosing regimen is minimized for reduced complexity. Coding Level of Care Code Acute Community Development Planner for Jhonatan Bajwa Diagnoses Bipolar I disorder with mood-congruent psychotic features F31.9 Acute psychosis F23
[2019-07-09 12:47] VITALS: BP 152/78; PULSE 87; RESP 18; TEMP 36.8; O2SAT 98
[2019-07-09] MEDS: lurasidone 80 mg Tablet 120 MG PO (17:27)
[2019-07-09] MEDS: divalproex DR 500 mg Tablet 1500 MG PO (21:21)
[2019-07-09 22:00] VITALS: BP 121/85; PULSE 60; RESP 17; TEMP 36.6; O2SAT 94
[2019-07-10 06:00] VITALS: BP 145/98; PULSE 59; RESP 17; TEMP 36.5; O2SAT 97
--- NOTE | 2019-07-10 07:00 | PC.NURSE ---
Pt refused weight
--- NOTE | 2019-07-10 07:07 | PC.NURSE ---
Pt decided to have wait taken
[2019-07-10] MEDS: metoprolol tartrate 25 mg Tablet PO ×2 (08:17→17:28)
[2019-07-10] MEDS: hydroCHLOROthiazide 25 mg Tablet PO (08:17)
[2019-07-10] MEDS: amlodipine 10 mg Tablet PO (08:17)
[2019-07-10] MEDS: hyDRALAzine 25 mg Tablet PO ×3 (08:17→21:16)
[2019-07-10] MEDS: lurasidone 20 mg Tablet 40 MG PO (08:18)
[2019-07-10] MEDS: albuterol 8 gm MDI 2 PUFF INHALATION (09:07)
[2019-07-10 09:11] VITALS: PULSE 67; RESP 16; O2SAT 97
[2019-07-10 09:14] VITALS: PULSE 66
[2019-07-10] MEDS: ARIPiprazole 10 mg Tablet 5 MG PO (11:52)
[2019-07-10 14:00] VITALS: BP 140/92; O2SAT 97
--- NOTE | 2019-07-10 14:57 | P.PN_ITS ---
Subjective NPU Subjective: Interval history: Ced presented today with aggression and agitation almost reminiscent of before he was put on the Geodon and titrated and the Abilify was added. During the time been gone we have decrease his medication due to his lethargy and being likely overmedicated but unfortunately the pendulum appears to have swung too far in the other direction with him being back to his ranting and somewhat aggressive posturing. We discussed the risks benefits and alternatives of resuming the Abilify given its likely ability to assist in mood stabilization without causing significant sedation and he understood and agreed to proceed as is documented in this note. Mental Status Exam MSE Comments: This is an overweight versus obese older white male with adequate dress, grooming and eye contact. No abnormal movements except for psychomotor agitation. Mostly cooperative with exam in mild distress. Speech was increased rate and volume. Mood described as fine affect slightly irritable. Thought process organized. Thought content: Patient denied any suicidal or homicidal ideations, there were no delusions reported or noted, he denied any auditory or visual hallucinations. Attention and concentration were mostly intact and memory was unreliable but none were formally tested. He is alert and oriented times person place. Insight and judgment are limited. Vitals/I&O/Wt Last Vital Signs Temp 97.7 F 07/10/19 06:00 Pulse 66 07/10/19 09:14 Resp 16 07/10/19 09:11 BP 140/92 07/10/19 14:00 Pulse Ox 97 07/10/19 14:00 Weight last 48 hrs Weight 85.899 kg Weight 0 g Data NPU : 06/30/19 12:35 06/30/19 12:35 A&P Additional A&P Information (1) Bipolar I disorder with mood-congruent psychotic features: This is a 59-year-old white male with a long history of bipolar disorder who presents with some improvements with his amaya on a 21-day hold. 90 day hold paperwork submitted. some agitation with medication reduction. 1. Continue current medications. Except: Will resume abilify 5 mg qam. 2. Encourage individual, group and milieu therapy. 3. Continue to 15-minute checks for safety. (2) Acute psychosis: Involuntary Hold Information 96 Hour Hold: 96 Hour Involuntary Admission: Yes 96 Hour Hold Ending Date: 06/14/19 96 Hour Hold Ending Time: 16:30 21 Day Hold: 21 Day Hold Start Date: 06/14/19 21 Day Hold Start Time: 14:32 21 Day Hold End Date: 07/06/19 21 Day Hold End Time: 14:32 Attestations NPU Medical Necessity Statement*: Inpatient hospitalization is medically necessary and the clinically appropriate intervention at this time. We will monitor and offer medications as indicated. Likely length of stay 2 to 4 days. Coding Level of Care Code Acute Extension Service Agent for Jhonatan Bajwa
[2019-07-10] MEDS: lurasidone 80 mg Tablet 120 MG PO (17:28)
[2019-07-10] MEDS: acetaminophen 325 mg Tablet 650 MG PO (21:15)
[2019-07-10] MEDS: divalproex DR 500 mg Tablet 1500 MG PO (21:16)
[2019-07-10 21:36] VITALS: BP 145/94; PULSE 86; RESP 16; TEMP 36.9; O2SAT 96
--- NOTE | 2019-07-10 21:42 | PC.NURSE ---
Pt given HS meds depakote, and apresoline and prn tylenol at 2115.
[2019-07-11 06:00] VITALS: BP 136/81; PULSE 69; RESP 18; TEMP 36.6; O2SAT 98
[2019-07-11] MEDS: hydroCHLOROthiazide 25 mg Tablet PO (08:00)
[2019-07-11] MEDS: metoprolol tartrate 25 mg Tablet PO ×2 (08:00→17:11)
[2019-07-11] MEDS: hyDRALAzine 25 mg Tablet PO ×3 (08:00→20:32)
[2019-07-11] MEDS: lurasidone 20 mg Tablet 40 MG PO (08:00)
[2019-07-11] MEDS: ARIPiprazole 10 mg Tablet 5 MG PO (08:00)
[2019-07-11] MEDS: amlodipine 10 mg Tablet PO (08:00)
[2019-07-11 11:34] VITALS: PULSE 68; RESP 17; O2SAT 98
[2019-07-11] MEDS: albuterol 8 gm MDI 2 PUFF INHALATION (11:36)
--- NOTE | 2019-07-11 13:26 | PM.NPN ---
Subjective NPU Subjective: Interval history: Ced presents today seem much calmer and much more able to manage the stimulation from his environment. He was pleasant and able to be conversant without escalation in his voice or posture etc. We discussed the fact that his sister said that if he is continuing in this state that she would be comfortable and able to pick him up on Thursday. He expressed both gratitude and thankfulness for this and concerns that it might not work out. We discussed his limited options and that this is a temporary move as she is also desirous of him resuming as independent of life as he is able to resume. Mental Status Exam MSE Comments: This is an overweight versus obese older white male with adequate dress, grooming and eye contact. No abnormal movements. Cooperative with exam in no acute distress. Speech was more normal rate and volume. Mood described as fine affect congruent. Thought process organized. Thought content: Patient denied any suicidal or homicidal ideations, there were no delusions reported or noted, he denied any auditory or visual hallucinations. Attention and concentration were mostly intact and memory was unreliable but none were formally tested. He is alert and oriented times person place. Insight and judgment are limited, but improving. Vitals/I&O/Wt Last Vital Signs Temp 98.5 F 07/11/19 21:58 Pulse 60 07/11/19 21:58 Resp 18 07/11/19 21:58 BP 181/93 07/11/19 21:58 Pulse Ox 97 07/11/19 21:58 Weight last 48 hrs Weight 85.899 kg Weight 0 g Data NPU : 06/30/19 12:35 06/30/19 12:35 A&P Additional A&P Information (1) Bipolar I disorder with mood-congruent psychotic features: This is a 59-year-old white male with a long history of bipolar disorder who presents with some improvements with his amaya on a 21-day hold. 90 day hold paperwork submitted. adjusting well to medication adjustments. 1. Continue current medications. 2. Encourage individual and milieu therapy. 3. Continue to 15-minute checks for safety. 4. Work with social work team for resources for discharge possibly Thursday. (2) Acute psychosis: Involuntary Hold Information 96 Hour Hold: 96 Hour Involuntary Admission: Yes 96 Hour Hold Ending Date: 06/14/19 96 Hour Hold Ending Time: 16:30 21 Day Hold: 21 Day Hold Start Date: 06/14/19 21 Day Hold Start Time: 14:32 21 Day Hold End Date: 07/06/19 21 Day Hold End Time: 14:32 Attestations NPU Medical Necessity Statement*: Inpatient hospitalization is medically necessary and the clinically appropriate intervention at this time. We will monitor and offer medications as indicated. Likely length of stay 2 to 4 days. Tentative plan for discharge Thursday. Coding Level of Care Code Acute Sales Representative Door To Door for Jhonatan Bajwa
[2019-07-11 14:00] VITALS: BP 117/77; PULSE 65; RESP 20; TEMP 36.6; O2SAT 98
[2019-07-11] MEDS: lurasidone 80 mg Tablet 120 MG PO (17:11)
[2019-07-11] MEDS: acetaminophen 325 mg Tablet 650 MG PO (20:32)
[2019-07-11] MEDS: divalproex DR 500 mg Tablet 1500 MG PO (20:32)
--- NOTE | 2019-07-11 21:43 | PC.NURSE ---
Pt given scheduled depakote, apresoline and prn tylenol for leg pain at 2031.
[2019-07-11 21:58] VITALS: BP 181/93; PULSE 60; RESP 18; TEMP 36.9; O2SAT 97
[2019-07-12 05:51] VITALS: BP 120/77; PULSE 64; RESP 20; TEMP 36.6; O2SAT 93
[2019-07-12] MEDS: lurasidone 20 mg Tablet 40 MG PO (09:18)
[2019-07-12] MEDS: hyDRALAzine 25 mg Tablet PO ×3 (09:18→20:21)
[2019-07-12] MEDS: amlodipine 10 mg Tablet PO (09:18)
[2019-07-12] MEDS: hydroCHLOROthiazide 25 mg Tablet PO (09:18)
[2019-07-12] MEDS: metoprolol tartrate 25 mg Tablet PO ×2 (09:18→17:37)
[2019-07-12] MEDS: ARIPiprazole 10 mg Tablet 5 MG PO (09:19)
--- NOTE | 2019-07-12 13:42 | P.PN_ITS ---
Subjective NPU Subjective: Interval history: Ced presents today seeming to be doing much better from an activation standpoint; but starting to raise questions about whether the Abilify is too much. So, given the likely discharge tomorrow, the plan is to switch the Abilify to nighttime and then recommending that it be halved if he continues to have the lethargy, and [facility] the challenges that he has had balancing management of his activation and bipolar disorder and avoidance of being overly sedated. Additionally, trying to manage the polypharmacy is another factor. He expressed some excitement in leaving the hospital. But that was also tempered by him knowing that he does not have a solution to his situation, just a temporary option. Mental Status Exam MSE Comments: This is an overweight, older, white male, with adequate dress, grooming, and eye contact. No abnormal movements. Cooperative with exam in no acute distress. Speech was slightly decreased rate and volume. Mood described as fine; affect slightly subdued. Thought process, more organized. Thought content: patient denied any suicidal or homicidal ideation, there were no delusions reported or noted, he denied any auditory or visual hallucinations. Attention, concentration, and memory appeared intact but were not formally tested. He is alert and oriented times three. Insight and judgment are improving. Vitals/I&O/Wt Last Vital Signs Temp 98.4 F 07/12/19 22:00 Pulse 63 07/12/19 22:00 Resp 18 07/12/19 22:00 BP 136/80 07/12/19 22:00 Pulse Ox 97 07/12/19 22:00 Data NPU : 06/30/19 12:35 06/30/19 12:35 A&P Additional A&P Information (1) Bipolar I disorder with mood-congruent psychotic features: This is a 59-year-old white male with a long history of bipolar disorder who presents with some improvements with his amaya on a 21-day hold. 90 day hold paperwork submitted. adjusting well to medication adjustments. 1. Continue current medications. 2. Encourage individual and milieu therapy. 3. Continue to 15-minute checks for safety. 4. Work with social work team for resources for discharge tomorrow. 5. Will move Abilify dosing to qhs as well as consider decreasing the dose. (2) Acute psychosis: Involuntary Hold Information 96 Hour Hold: 96 Hour Involuntary Admission: Yes 96 Hour Hold Ending Date: 06/14/19 96 Hour Hold Ending Time: 16:30 21 Day Hold: 21 Day Hold Start Date: 06/14/19 21 Day Hold Start Time: 14:32 21 Day Hold End Date: 07/06/19 21 Day Hold End Time: 14:32 Attestations NPU Medical Necessity Statement*: Inpatient hospitalization is medically necessary and the clinically appropriate intervention at this time. We will monitor and offer medications as indicated. Likely length of stay 1-3 days. Tentative plan for discharge tomorrow. Coding Level of Care Code Acute Child Care Assistant for Jhonatan Bajwa
[2019-07-12 14:00] VITALS: BP 121/80; PULSE 64; RESP 20; TEMP 36.7; O2SAT 97
--- NOTE | 2019-07-12 14:18 | PC.SOCIAL ---
Important Medicare Message Reviewed previously signed page 2 Important Medicare Message with patient. He recalls the document. Updated copy to patient and in chart.
[2019-07-12] MEDS: lurasidone 80 mg Tablet 120 MG PO (17:37)
[2019-07-12] MEDS: divalproex DR 500 mg Tablet 1500 MG PO (20:21)
[2019-07-12] MEDS: acetaminophen 325 mg Tablet 650 MG PO (20:22)
--- NOTE | 2019-07-12 20:22 | PC.NURSE ---
Pt given scheduled Depakote, Apresoline and PRN Tylenol.
[2019-07-12 22:00] VITALS: BP 136/80; PULSE 63; RESP 18; TEMP 36.9; O2SAT 97
[2019-07-13 06:00] VITALS: BP 145/93; PULSE 54; RESP 18; TEMP 36.8; O2SAT 96
[2019-07-13] MEDS: lurasidone 20 mg Tablet 40 MG PO (07:57)
[2019-07-13] MEDS: hyDRALAzine 25 mg Tablet PO (07:58)
[2019-07-13] MEDS: hydroCHLOROthiazide 25 mg Tablet PO (07:58)
[2019-07-13] MEDS: metoprolol tartrate 25 mg Tablet PO (07:58)
[2019-07-13] MEDS: amlodipine 10 mg Tablet PO (07:58)
--- NOTE | 2019-07-13 11:15 | PC.RESP ---
Smoking Cessation information mailed to patient with a list of pending classes.
--- NOTE | 2019-07-13 12:09 | PM.NDC ---
Diagnoses at Discharge Discharge Diagnosis (1) Bipolar I disorder with mood-congruent psychotic features: Status: Acute (2) Acute psychosis: Status: Resolved Reason for Visit Reason for Visit: Reason For Visit: PSYCH EVAL Brief History: History of Present Illness Chief complaint: I don't want to. History of present illness:Ced Vicente is a 59 year old male who was admitted from the mergency room with the following ER phsyciain narrative: 59-year-old male came in with EMS for agitation along with acute psychosis. Patient was found [place] a gas station wandering and screaming and yelling and making no sense and EMS was called. I have tried to speak to him and he talks about and he is quite delusional. He will not answer any my questions and states he only wants to talk to personnel. No known history is available. He does not look ill. He is agitated at this time. he was given medication in the emergency room to calm his agitation. Today, he is content to lay in bed and sleep. He is unwilling to participate and an individual interview at this time. He is in no apparent distress. However, we have absolutely no information on this patient. He has no prior medical records at this facility. He has no legal records in the public records for the state [facility]. His last name is familiar to people who live in this community but his identity and the first name are unfamiliar. Mental health history:unknown Social history:unknown Legal history:no record of felonies or rests in the [place] public record Past medical history:unknown Laboratory Tests 06/08/19 06/08/19 06/08/19 18:43 18:43 18:51 WBC 8.5 Hgb 15.3 Hct 45.5 Sodium 139 Potassium 3.4 L Chloride 101 Carbon Dioxide 22 Urine Opiates Screen Negative Ur Barbiturates Screen Negative Ur Phencyclidine Scrn Negative Ur Amphetamines Screen Negative U Benzodiazepines Scrn Negative Urine Cocaine Screen Negative U Marijuana (THC) Screen Negative Ethyl Alcohol < 10 Mental Status Exam: patient is laying in bed in no apparent distress with even unlabored breathing. He is aroused by verbal stimuli. However he states verbally that he is unwilling to participate in an interview at this time. Appearance: hygiene is fair; no gross neurological deficits., gait is unremarkable; AIMS=0 Speech: Speech is of normal rate and rhythm and easily understood. Hospital Course Hospital Course Ced presented to the emergency room psychotic and unable to really understand what was going on around him. He was highly activated and unable to be reasoned with. He had an extended hospitalization where he very slowly acclimated to the resources provided on the unit. He went from being manic and irritable and exploding on a dime to eventually being calm and able to manage himself. The most difficult challenge with him was getting a balance between enough medication to avoid him being the explosive individual that was intolerable and a little too much medication to where he just slept all day. It appears that Abilify is a very effective medication for him but it may be that he only needs 2.5 mg or a smaller dose. Ultimately his circumstances improve and the challenge of finding him somewhere to go initially was managed by his sister stepping up and allowing him to stay with her until other arrangements could be made. During the hospitalization he had routine laboratory studies which were within normal limits except for a few outliers. Additionally there was a general medical evaluation which was also within normal limits and revealed no new acute processes, though there were issues with him complaining of pain suggestive of inguinal hernia in his right inguinal area that was monitored during the stay by hospitalist. Discharge Summary At the time of discharge, he denied any lethality and was absent psychosis. Mood and anxiety were well managed and he endorsed a plan to avoid drugs of abuse, and follow-up with the recommended post hospital services. He was evaluated and deemed to be absent credible lethality and had received the maximum benefit from an inpatient hospitalization, so was discharged. Involuntary Hold Information 96 Hour Hold: 96 Hour Involuntary Admission: Yes 96 Hour Hold Ending Date: 06/14/19 96 Hour Hold Ending Time: 16:30 21 Day Hold: 21 Day Hold Start Date: 06/14/19 21 Day Hold Start Time: 14:32 21 Day Hold End Date: 07/06/19 21 Day Hold End Time: 14:32 Mental Status Exam MSE Comments: This is an overweight, older, white male, with adequate dress, grooming, and eye contact. No abnormal movements. Cooperative with exam in no acute distress. Speech was slightly decreased rate and volume. Mood described as OK; affect slightly subdued. Thought process, more organized. Thought content: patient denied any suicidal or homicidal ideation, there were no delusions reported or noted, he denied any auditory or visual hallucinations. Attention, concentration, and memory appeared intact but were not formally tested. He is alert and oriented times three. Insight and judgment are improving. Discharge Data Data Completed and Pending: Completed Studies During Hospitalization Category Date Time Status CT abdomen pelvis wo con 11865 Rout ine Cat Scan 06/24/19 13:[address] head wo con* 7 0450 Urgent Cat Scan 06/08/19 19:07 Completed Pending at discharge Category Date Time Status [id number]-HQ-Hm ld Plus Routine Lab 06/24/19 17:45 Received Vitals: Last Vital Signs Temp 98.2 F 07/13/19 06:00 Pulse 54 L 07/13/19 06:00 Resp 18 07/13/19 06:00 BP 145/93 07/13/19 06:00 Pulse Ox 96 07/13/19 06:00 Discharge Plan Discharge Patient Disposition: Home, Self-Care Condition: Stable Prescriptions: New metoprolol tartrate 25 mg Tablet 25 mg PO BID 30 Days Qty: 60 RF: 1 lurasidone 40 mg tablet 40 mg PO BREAKFAST 30 Days RF: 1 lurasidone 120 mg tablet 120 mg PO 1700 30 Days Qty: 30 RF: 1 hydralazine 25 mg Tablet 25 mg PO TID 30 Days Qty: 90 RF: 1 divalproex 500 mg Tablet,Delayed Release (Dr/Ec) 1,500 mg PO BEDTIME 30 Days Qty: 90 RF: 1 hydrochlorothiazide 25 mg Tablet 25 mg PO DAILY 30 Days Qty: 30 RF: 1 aripiprazole 5 mg tablet 5 mg PO BEDTIME 30 Days Qty: 30 RF: 1 amlodipine 10 mg Tablet 10 mg PO DAILY 30 Days Qty: 30 RF: 1 Discharge Orders: Discharge Order (Routine); Ordered 07/13/19 Ordered By: Burak Norton Referrals: [facility] [Other] - 4-7 days (Call phone number to schedule an intake assessment. Services that can be provided include psychiatric evaluation, counseling, and case management.) [facility] [Outside] - 4-7 days (Intake paperwork will be provided to you prior to discharge. You may call for an intake appointment. ) Discharge Diet: Diabetic Discharge Activity: Resume usual activity Patient Instructions: Hydrochlorothiazide (By mouth), Hydralazine (By mouth), Amlodipine (By mouth), Aripiprazole (By mouth), Divalproex (By mouth), Lurasidone (By mouth), Bipolar Disorder (GEN) Activity Restrictions/Additional Instructions: Two options for follow up have been provided to you. One is if you stay in this area for [facility] and one in [place], [place]. Contact information for taxi services: Glenroy Sosa [phone] [facility] and [facility] [phone] Discharge Date/Time: 07/13/19 13:20 Discharge Attestations NPU Time Spent in Discharge Care*: greater than 30 min Specific Discharge Activities: Specific discharge activities: educating patient, educating and/or supporting family/caregiver, discussing with case operator/social workers/dc planners, documenting/other paperwork and evaluating patient/reviewing data Coding Level of Care Code Acute Cardiothoracic Anesthesia Technician for Jhonatan Fwharitha Diagnoses Bipolar I disorder with mood-congruent psychotic features F31.9 Acute psychosis F23
[2019-07-13 12:21] VITALS: BP 145/93; PULSE 54; RESP 18; TEMP 36.8; O2SAT 96
[2019-07-13 12:22] VITALS: BP 145/93; PULSE 54; RESP 18; TEMP 36.8; O2SAT 96
[2019-07-13] MEDS: ARIPiprazole 10 mg Tablet 5 MG PO (12:59)
== END 2019-07-13 13:20 | disposition home or self-care (01) | DRG 885 ==
LOC: ER 20:15 → NP 20:49
PROVIDERS: Psychiatry & Neurology Psychiatry; Student in an Organized Health Care Education/Training Program; Admitting Provider Psychiatry & Neurology Psychiatry; Emergency Provider Emergency Medicine; Visit Provider Psychiatry & Neurology Psychiatry
DX: F31.2 Bipolar disorder, current episode manic severe with psychotic features (principal); F17.210 Nicotine dependence, cigarettes, uncomplicated; I16.0 Hypertensive urgency; I88.0 Nonspecific mesenteric lymphadenitis; K40.90 Unilateral inguinal hernia, without obstruction or gangrene, not specified as recurrent; K43.9 Ventral hernia without obstruction or gangrene
CPT/HCPCS: 12345; 36415; 36416; 70450; 74176; 80053; 80164; 80306; 80307; 82140; 82962; 83036; 85025; 86480; 86592; 86705; 86706; 86709; 86803; 87340; 87491; 87591; 87806; 94640; 96372; 96375; 99284; A9270; J1200; J1630; J2060; J3535